=== PATIENT | male | born 1975 | race Caucasian/White ===

== ENCOUNTER 2017-03-04 11:22 | Emergency (ER) | payer OTHER ==
[2017-03-04 11:38] VITALS: RESP 18
[2017-03-04] MEDS ORDERED: SODIUM CHLORIDE 0.9% 1,000 ML IV STA (11:51)
--- NOTE | 2017-03-04 11:54 | ED ---
General Adult HPI - General Chief complaint: Abdominal Pain Stated complaint: poss Diverticulitis, has Hx Time Seen by Provider: 03/04/17 11:47 Source: patient, RN notes reviewed Mode of arrival: ambulatory Limitations: no limitations - History of Present Illness Initial comments: Patient 41-year-old male significant past medical history for diverticular disease, who presents emergency room today with chief complaint of lower abdominal pain that began yesterday. He states it's located in the middle of the abdomen. Denies any radiation. Currently rates an 12/02. Unable to describe exactly what the pain feels like when he states feels very similar to diverticulitis that is had in the past. Patient denies any other complaints or symptoms at this time. Patient denies any recent fever, chills, shortness of breath, chest pain, back pain, nausea or vomiting, numbness or tingling, dysuria or hematuria, constipation or diarrhea, headaches or visual changes, or any other complaints. - Related Data Previous Rx's Medication Instructions Recorded Ciprofloxacin HCl [Cipro] 500 mg PO Q12HR #20 day 03/04/17 Ondansetron Odt [Zofran ODT] 4 mg PO Q8HR PRN #20 tab 03/04/17 metroNIDAZOLE [Flagyl] 500 mg PO TID 7 Days tab 03/04/17 Allergies Allergy/AdvReac Type Severity Reaction Status Date / Time venom-honey bee Allergy Unknown Anaphylaxis Verified 03/04/17 12:47 [bee venom (honey bee)] sertraline HCl [From Zoloft] AdvReac Unknown "MAKES ME Verified 03/04/17 12:47 MEAN" PER PT Review of Systems ROS Statement: Those systems with pertinent positive or pertinent negative responses have been documented in the HPI. ROS Other: All systems not noted in ROS Statement are negative. Past Medical History Additional Past Medical History / Comment(s): Diverticulitis, kidney stones, ureter blockage, hx lt shoulder injury History of Any Multi-Drug Resistant Organisms: None Reported Past Surgical History: Appendectomy, Tonsillectomy Additional Past Surgical History / Comment(s): History of right nephrolithiasis with ureteral stricture status post multiple surgeries. Past Anesthesia/Blood Transfusion Reactions: No Reported Reaction Past Psychological History: Depression Smoking Status: Never smoker Past Alcohol Use History: None Reported Past Drug Use History: Marijuana General Exam - General Exam Comments Initial Comments: General: The patient is awake and alert, in no distress, and does not appear acutely ill. Eye: Pupils are equal, round and reactive to light, extra-ocular movements are intact. No nystagmus. There is normal conjunctiva bilaterally. No signs of icterus. Ears, nose, mouth and throat: There are moist mucous membranes and no oral lesions. Neck: The neck is supple, there is no tenderness or JVD. Cardiovascular: There is a regular rate and rhythm. No murmur, rub or gallop is appreciated. Respiratory: Lungs are clear to auscultation, respirations are non-labored, breath sounds are equal. No wheezes, stridor, rales, or rhonchi. Gastrointestinal: Normal appearance abdomen. Normal bowel sounds. Abdomen soft on palpation. Patient does have tenderness to the middle of the lower abdomen. No rebound tenderness. No guarding. No CVA tenderness. Musculoskeletal: Normal ROM, no tenderness. Strength 5/5. Sensation intact. Pulses equal bilaterally 2+. Neurological: A&O x 3. CN II-XII intact, There are no obvious motor or sensory deficits. Coordination appears grossly intact. Speech is normal. Skin: Skin is warm and dry and no rashes or lesions are noted. Psychiatric: Cooperative, appropriate mood & affect, normal judgment. Limitations: no limitations Course Vital Signs 03/04/17 03/04/17 03/04/17 11:36 12:09 12:49 Temperature 98.1 F 98.2 F Pulse Rate 88 77 76 Respiratory 18 18 18 Rate Blood Pressure 180/100 160/94 150/94 O2 Sat by Pulse 98 96 99 Oximetry Medical Decision Making - Medical Decision Making Patient reexamined at this time shows no signs of distress is resting comfortably in the stretcher. He does not want any pain medication. Patient does admit to a history of diverticulitis states this feels very much the same. He is on heparin any diarrhea as of yet received feel like it is about to start. Patient's x-ray of the abdomen is unremarkable for any acute abnormality. Patient's labs been reviewed and elevated white count. No fever here in the emergency room. Case was discussed in detail with attending physician Dr. Alston. Patient will be given prescription for Pili Mcdowell to go home with. Patient return to emergency room if any symptoms increase worsen or for any other concerns. - Lab Data Result diagrams: 03/04/17 12:00 03/04/17 12:00 Lab Results 03/04/17 03/04/17 Range/Units 12:00 12:00 WBC 9.8 (3.8-10.6) k/uL RBC 5.02 (4.30-5.90) m/uL Hgb 15.9 (13.0-17.5) gm/dL Hct 44.4 (39.0-53.0) % MCV 88.5 (80.0-100.0) fL MCH 31.7 (25.0-35.0) pg MCHC 35.8 (31.0-37.0) g/dL RDW 13.7 (11.5-15.5) % Plt Count 212 (150-450) k/uL Neutrophils % 69 % Lymphocytes % 22 % Monocytes % 5 % Eosinophils % 2 % Basophils % 0 % Neutrophils # 6.8 (1.3-7.7) k/uL Lymphocytes # 2.2 (1.0-4.8) k/uL Monocytes # 0.5 (0-1.0) k/uL Eosinophils # 0.2 (0-0.7) k/uL Basophils # 0.0 (0-0.2) k/uL Sodium 140 (137-145) mmol/L Potassium 4.0 (3.5-5.1) mmol/L Chloride 107 (98-107) mmol/L Carbon Dioxide 24 (22-30) mmol/L Anion Gap 9 mmol/L BUN 10 (9-20) mg/dL Creatinine 0.91 (0.66-1.25) mg/dL Est GFR (MDRD) Af Amer >60 (>60 ml/min/1.73 sqM) Est GFR (MDRD) Non-Af >60 (>60 ml/min/1.73 sqM) Glucose 96 (74-99) mg/dL Calcium 9.5 (8.4-10.2) mg/dL Total Bilirubin 0.6 (0.2-1.3) mg/dL AST 22 (17-59) U/L ALT 45 (21-72) U/L Alkaline Phosphatase 71 (38-126) U/L Total Protein 7.5 (6.3-8.2) g/dL Albumin 4.4 (3.5-5.0) g/dL Amylase 30 (30-110) U/L Lipase 141 (23-300) U/L Disposition Clinical Impression: Abdominal pain Disposition: HOME SELF-CARE Condition: Good Instructions: Abdominal Pain (ED) Additional Instructions: Please use medication as discussed. Please follow-up with family doctor in the next 2 days of symptoms have not improved. Please return to emergency room if the symptoms increase or worsen or for any other concerns. Prescriptions: Ciprofloxacin HCl [Cipro] 500 mg PO Q12HR #20 day metroNIDAZOLE [Flagyl] 500 mg PO TID 7 Days tab Ondansetron Odt [Zofran ODT] 4 mg PO Q8HR PRN #20 tab PRN Reason: Nausea Referrals: Daquan Arango DO [Primary Care Provider] - 1-2 days Time of Disposition: 13:05
[2017-03-04 12:10] VITALS: TEMP 98.2
[2017-03-04 12:14] LABS: Basophils % (A) 0 %; CH 32.7; CHCM 37.2; Eosinophils # (A) 0.2 k/uL (0-0.7); Eosinophils % (A) 2 %; HCT 44.4 % (39.0-53.0); HDW 3.01; HGB 15.9 gm/dL (13.0-17.5); Luc # (Auto) 0.13; Luc % (Auto) 1; Lymphocytes # (A) 2.2 k/uL (1.0-4.8); Lymphocytes % (A) 22 %; MCH 31.7 pg (25.0-35.0); MCHC 35.8 g/dL (31.0-37.0); MCV 88.5 fL (80.0-100.0); Mean Platelet Volume 6.8; Monocytes # (A) 0.5 k/uL (0-1.0); Monocytes % (A) 5 %; Neutrophils # (A) 6.8 k/uL (1.3-7.7); Neutrophils % (A) 69 %; RBC 5.02 m/uL (4.30-5.90); RDW 13.7 % (11.5-15.5); WBC 9.8 k/uL (3.8-10.6); WBC (Perox) 9.22
[2017-03-04 12:20] LABS: ALT 45 U/L (21-72); AST 22 U/L (17-59); Alkaline Phosphatase 71 U/L (38-126); Amylase 30 U/L (30-110); Anion Gap 9 mmol/L; Blood Urea Nitrogen 10 mg/dL (9-20); Calcium 9.5 mg/dL (8.4-10.2); Carbon Dioxide 24 mmol/L (22-30); Chloride 107 mmol/L (98-107); Glucose 96 mg/dL (74-99); Non-African American GFR(MDRD) >60 (>60 ml/min/1.73 sqM); Sodium 140 mmol/L (137-145); Total Bilirubin 0.6 mg/dL (0.2-1.3); Total Protein 7.5 g/dL (6.3-8.2)
[2017-03-04 12:51] VITALS: BP 150/94; PULSE 76
[2017-03-04] MEDS ORDERED: ONDANSETRON 4 MG/2 ML VIAL IVP STA (12:53)
--- NOTE | 2017-03-04 13:05 | XR ---
Abdomen HISTORY: Pain Frontal view of the abdomen on 2 images Lung bases are clear. There is no bowel obstruction or pneumoperitoneum. Double-J stent has been johnny esteban in the interval. No pathologic calcification evident. Bone mineralization is normal. IMPRESSION: No significant abnormalities evident.
== END 2017-03-04 13:21 | disposition home or self-care (01) ==
LOC: EC 11:22
DX: R10.30 Lower abdominal pain, unspecified (principal); Z88.8 Allergy status to other drugs, medicaments and biological substances; Z91.030 Bee allergy status; Z98.890 Other specified postprocedural states; Z53.29 Procedure and treatment not carried out because of patient's decision for other reasons
CPT/HCPCS: 36415; 74000; 80053; 82150; 83690; 85025; 96360; 99284

== ENCOUNTER 2017-03-09 15:28 | Emergency (ER) | payer OTHER ==
[2017-03-09] MEDS ORDERED: KETOROLAC 30 MG/ML 1 ML VIAL IVP STA (15:54)
--- NOTE | 2017-03-09 15:59 | ED ---
General Adult HPI - General Chief complaint: Skin/Abscess/Foreign Body Stated complaint: Rt Foot Pain Time Seen by Provider: 03/09/17 15:46 Source: patient, RN notes reviewed Mode of arrival: wheelchair Limitations: no limitations - History of Present Illness Initial comments: Patient is a pleasant 41-year-old male presenting to the emergency Department with right ankle pain. Onset was 3 or 4 days ago. Patient has noticed redness. Discomfort is moderate at rest and severe with movement. Discomfort also hurts with touching. No fevers. Patient does have a history of gout of his left ankle twice previously however he is not quite clear that that is exactly what is going on. Patient was seen at the clinic and was advised to come to the emergency department. Patient did have diverticulitis one week ago and was started on Cipro and Flagyl for this. Patient is still on these medications. No abdominal problems at this time. - Related Data Home Medications Medication Instructions Recorded Confirmed Acetaminophen-Codeine 300-30mg 1 tab PO Q8H PRN 03/09/17 03/09/17 [Tylenol #3] Previous Rx's Medication Instructions Recorded Ciprofloxacin HCl [Cipro] 500 mg PO Q12HR #20 day 03/04/17 Ondansetron Odt [Zofran ODT] 4 mg PO Q8HR PRN #20 tab 03/04/17 metroNIDAZOLE [Flagyl] 500 mg PO TID 7 Days tab 03/04/17 Colchicine 0.6 mg PO DAILY PRN #9 capsule 03/09/17 Allergies Allergy/AdvReac Type Severity Reaction Status Date / Time venom-honey bee Allergy Unknown Anaphylaxis Verified 03/09/17 15:49 [bee venom (honey bee)] sertraline HCl [From Zoloft] AdvReac Unknown "MAKES ME Verified 03/09/17 15:49 MEAN" PER PT Review of Systems ROS Statement: Those systems with pertinent positive or pertinent negative responses have been documented in the HPI. ROS Other: All systems not noted in ROS Statement are negative. Constitutional: Denies: fever, chills Eyes: Denies: eye pain ENT: Denies: ear pain Respiratory: Denies: cough Cardiovascular: Denies: chest pain Endocrine: Denies: fatigue Gastrointestinal: Denies: abdominal pain Genitourinary: Denies: dysuria Musculoskeletal: Reports: joint swelling, arthralgia. Denies: back pain Skin: Reports: rash Neurological: Denies: weakness Past Medical History Additional Past Medical History / Comment(s): Diverticulitis, kidney stones, ureter blockage, hx lt shoulder injury History of Any Multi-Drug Resistant Organisms: None Reported Past Surgical History: Appendectomy, Tonsillectomy Additional Past Surgical History / Comment(s): History of right nephrolithiasis with ureteral stricture status post multiple surgeries. Past Anesthesia/Blood Transfusion Reactions: No Reported Reaction Past Psychological History: Depression Smoking Status: Never smoker Past Alcohol Use History: None Reported Past Drug Use History: None Reported General Exam Limitations: no limitations General appearance: alert, in no apparent distress Head exam: Present: atraumatic Eye exam: Present: normal appearance, PERRL ENT exam: Present: normal oropharynx Neck exam: Present: normal inspection Respiratory exam: Present: normal lung sounds bilaterally Cardiovascular Exam: Present: regular rate, normal rhythm Expanded Peripheral pulses: 2+: Dorsalis Pedis (R) GI/Abdominal exam: Present: soft. Absent: tenderness Extremities exam: Present: joint swelling (Right ankle with moderate diffuse swelling. There is erythema on the medial portion with some erythema extending to the dorsal midfoot. Moderate to severe tenderness to palpation. Severe discomfort with motion. Range of motion is limited by discomfort.) Neurological exam: Present: alert Psychiatric exam: Present: normal affect, normal mood Skin exam: Present: erythema (Right medial ankle extending to the dorsal midfoot.) Course Vital Signs 03/09/17 03/09/17 15:39 16:59 Temperature 99.2 F Pulse Rate 105 H 70 Respiratory 20 18 Rate Blood Pressure 162/104 149/83 O2 Sat by Pulse 98 98 Oximetry Medical Decision Making - Medical Decision Making Patient reevaluated and states he is feeling much better. Patient states he is now able to move his ankle. Patient now believes his symptoms are more likely related to gout. Clinically as well as lab results to point towards inflammatory process instead of infectious process. Case was also discussed with Dr. Shirley, who is in agreement with this and will follow-up with the patient tomorrow. Patient is updated on results and need for follow-up. - Lab Data Result diagrams: 03/09/17 16:05 03/09/17 16:05 Lab Results 03/09/17 03/09/17 Range/Units 16:05 16:05 WBC 10.1 (3.8-10.6) k/uL RBC 5.08 (4.30-5.90) m/uL Hgb 15.7 (13.0-17.5) gm/dL Hct 44.8 (39.0-53.0) % MCV 88.3 (80.0-100.0) fL MCH 31.0 (25.0-35.0) pg MCHC 35.1 (31.0-37.0) g/dL RDW 14.2 (11.5-15.5) % Plt Count 296 (150-450) k/uL Neutrophils % 70 % Lymphocytes % 19 % Monocytes % 7 % Eosinophils % 2 % Basophils % 0 % Neutrophils # 7.1 (1.3-7.7) k/uL Lymphocytes # 1.9 (1.0-4.8) k/uL Monocytes # 0.7 (0-1.0) k/uL Eosinophils # 0.2 (0-0.7) k/uL Basophils # 0.0 (0-0.2) k/uL ESR 32 H (0-15) mm/hr Sodium 139 (137-145) mmol/L Potassium 3.8 (3.5-5.1) mmol/L Chloride 101 (98-107) mmol/L Carbon Dioxide 25 (22-30) mmol/L Anion Gap 13 mmol/L BUN 14 (9-20) mg/dL Creatinine 1.00 (0.66-1.25) mg/dL Est GFR (MDRD) Af Amer >60 (>60 ml/min/1.73 sqM) Est GFR (MDRD) Non-Af >60 (>60 ml/min/1.73 sqM) Glucose 100 H (74-99) mg/dL Uric Acid 9.1 H (3.5-8.5) mg/dL Calcium 9.4 (8.4-10.2) mg/dL Total Bilirubin 0.6 (0.2-1.3) mg/dL AST 21 (17-59) U/L ALT 35 (21-72) U/L Alkaline Phosphatase 70 (38-126) U/L C-Reactive Protein 55.2 H (<10.0) mg/L Total Protein 7.4 (6.3-8.2) g/dL Albumin 4.4 (3.5-5.0) g/dL - Radiology Data Radiology results: image reviewed (X-ray of the right ankle suggests remote trauma and arthropathy. There is soft tissue edema.) Disposition Clinical Impression: Arthralgia Disposition: HOME SELF-CARE Condition: Stable Instructions: Gout (ED) Additional Instructions: Please follow-up with primary care physician tomorrow as well as orthopedics, number provided. Return for increased pain, swelling, fever, redness, worsening symptoms or other concerns. Prescriptions: Colchicine 0.6 mg PO DAILY PRN #9 capsule PRN Reason: Pain Referrals: Daquan Arango DO [Primary Care Provider] - 1-2 days Time of Disposition: 19:08
[2017-03-09 16:19] LABS: Basophils % (A) 0 %; CH 31.7; CHCM 36.1; Eosinophils # (A) 0.2 k/uL (0-0.7); Eosinophils % (A) 2 %; HCT 44.8 % (39.0-53.0); HDW 2.87; HGB 15.7 gm/dL (13.0-17.5); Luc # (Auto) 0.12; Luc % (Auto) 1; Lymphocytes # (A) 1.9 k/uL (1.0-4.8); Lymphocytes % (A) 19 %; MCHC 35.1 g/dL (31.0-37.0); MCV 88.3 fL (80.0-100.0); Mean Platelet Volume 7.2; Monocytes # (A) 0.7 k/uL (0-1.0); Monocytes % (A) 7 %; Neutrophils # (A) 7.1 k/uL (1.3-7.7); Neutrophils % (A) 70 %; RBC 5.08 m/uL (4.30-5.90); RDW 14.2 % (11.5-15.5); WBC 10.1 k/uL (3.8-10.6); WBC (Perox) 9.98
--- NOTE | 2017-03-09 16:32 | XR ---
EXAMINATION TYPE: XR ankle complete RT DATE OF EXAM: 03/09/2017 COMPARISON: NONE HISTORY: Pain and swelling FINDINGS: Three views of the ankle demonstrate the ankle mortise to be intact and symmetric. The joint spaces are preserved. The osseous structures are intact. There is a more well corticated density along the lateral malleolus with hypertrophic spurring. Findings suggest remote trauma. Calcaneal spurs noted. Soft tissue edema suspected with a greater involvement laterally. IMPRESSION: 1. Findings suggest remote trauma and arthropathy along the medial malleolus. There is soft tissue ed rojelio.
[2017-03-09 16:44] LABS: ALT 35 U/L (21-72); AST 21 U/L (17-59); Alkaline Phosphatase 70 U/L (38-126); Anion Gap 13 mmol/L; Blood Urea Nitrogen 14 mg/dL (9-20); C Reactive Protein 55.2 mg/L (<10.0); Calcium 9.4 mg/dL (8.4-10.2); Carbon Dioxide 25 mmol/L (22-30); Chloride 101 mmol/L (98-107); Glucose 100 mg/dL (74-99); Non-African American GFR(MDRD) >60 (>60 ml/min/1.73 sqM); Potassium 3.8 mmol/L (3.5-5.1); Sodium 139 mmol/L (137-145); Total Bilirubin 0.6 mg/dL (0.2-1.3); Total Protein 7.4 g/dL (6.3-8.2); Uric Acid 9.1 mg/dL (3.5-8.5)
[2017-03-09 17:00] VITALS: RESP 18
[2017-03-09] MEDS ORDERED: HYDROmorphone 1 MG/ML 1 ML SYRINGE IVP STA (17:05)
[2017-03-09 17:08] LABS: Erythrocyte Sedimentation Rate 32 mm/hr (0-15)
[2017-03-09 19:23] VITALS: BP 142/88; PULSE 85; TEMP 97.6
== END 2017-03-09 19:23 | disposition home or self-care (01) ==
LOC: EC 15:28
DX: M25.571 Pain in right ankle and joints of right foot (principal); Z91.030 Bee allergy status; Z88.8 Allergy status to other drugs, medicaments and biological substances; Z87.39 Personal history of other diseases of the musculoskeletal system and connective tissue
CPT/HCPCS: 99284; 96374; 96375; 36415; 80053; 85652; 84550; 85025; 86140; 87040; 73610; J1885; J1170

== ENCOUNTER 2018-04-01 13:57 | Emergency (ER) | payer OTHER ==
[2018-04-01 14:26] VITALS: RESP 18
[2018-04-01] MEDS ORDERED: SODIUM CHLORIDE 0.9% 1,000 ML IV STA (14:53)
[2018-04-01] MEDS ORDERED: KETOROLAC 30 MG/ML 1 ML VIAL IVP STA (14:53)
[2018-04-01] MEDS ORDERED: MORPHINE SULFATE 4 MG/ML SYRINGE IV STA (14:53)
[2018-04-01] MEDS ORDERED: ONDANSETRON 4 MG/2 ML VIAL IVP STA (14:53)
[2018-04-01 15:24] LABS: Basophils % (A) 0 %; Eosinophils # (A) 0.2 k/uL (0-0.7); Eosinophils % (A) 2 %; HCT 46.8 % (39.0-53.0); HGB 16.2 gm/dL (13.0-17.5); Lymphocytes # (A) 2.1 k/uL (1.0-4.8); Lymphocytes % (A) 16 %; MCH 30.2 pg (25.0-35.0); MCHC 34.6 g/dL (31.0-37.0); MCV 87.2 fL (80.0-100.0); Mean Platelet Volume 6.7; Monocytes # (A) 0.6 k/uL (0-1.0); Monocytes % (A) 5 %; Neutrophils # (A) 9.9 k/uL (1.3-7.7); Neutrophils % (A) 76 %; Platelet Count 202 k/uL (150-450); RBC 5.37 m/uL (4.30-5.90); RDW 13.6 % (11.5-15.5)
--- NOTE | 2018-04-01 15:38 | ED ---
General Adult HPI - General Chief complaint: Abdominal Pain Stated complaint: Kidney stone Time Seen by Provider: 04/01/18 14:38 Source: patient, RN notes reviewed Mode of arrival: ambulatory Limitations: no limitations - History of Present Illness Initial comments: Patient is a 42-year-old male with significant past medical history for kidney stones, presented to the emergency room today with a chief complaint of right- sided flank pain that started this morning proxy 9 AM. Patient does admit to sharp type pain located in the right flank. Patient does admit to feeling nauseated. Patient states his symptoms are consistent with kidney stones that is had in the past. Denies any other complaints or symptoms at this time. Patient denies any recent fever, chills, shortness of breath, chest pain, numbness or tingling, dysuria or hematuria, constipation or diarrhea, headaches or visual changes, or any other complaints. - Related Data Home Medications Medication Instructions Recorded Confirmed Acetaminophen-Codeine 300-30mg 1 tab PO Q8H PRN 03/09/17 03/09/17 [Tylenol #3] Previous Rx's Medication Instructions Recorded Ciprofloxacin HCl [Cipro] 500 mg PO Q12HR #20 day 03/04/17 Ondansetron Odt [Zofran ODT] 4 mg PO Q8HR PRN #20 tab 03/04/17 metroNIDAZOLE [Flagyl] 500 mg PO TID 7 Days tab 03/04/17 Colchicine 0.6 mg PO DAILY PRN #9 capsule 03/09/17 Allergies Allergy/AdvReac Type Severity Reaction Status Date / Time venom-honey bee Allergy Unknown Anaphylaxis Verified 04/01/18 14:22 [bee venom (honey bee)] sertraline HCl [From Zoloft] AdvReac Unknown "MAKES ME Verified 04/01/18 14:22 MEAN" PER PT Review of Systems ROS Statement: Those systems with pertinent positive or pertinent negative responses have been documented in the HPI. ROS Other: All systems not noted in ROS Statement are negative. Past Medical History Additional Past Medical History / Comment(s): Diverticulitis, kidney stones, ureter blockage, hx lt shoulder injury History of Any Multi-Drug Resistant Organisms: None Reported Past Surgical History: Appendectomy, Tonsillectomy Additional Past Surgical History / Comment(s): History of right nephrolithiasis with ureteral stricture status post multiple surgeries. Past Anesthesia/Blood Transfusion Reactions: No Reported Reaction Past Psychological History: Depression Smoking Status: Never smoker Past Alcohol Use History: None Reported Past Drug Use History: None Reported General Exam - General Exam Comments Initial Comments: General: The patient is awake and alert, in no distress, and does not appear acutely ill. Neck: The neck is supple, there is no tenderness or JVD. Cardiovascular: There is a regular rate and rhythm. No murmur, rub or gallop is appreciated. Respiratory: Lungs are clear to auscultation, respirations are non-labored, breath sounds are equal. No wheezes, stridor, rales, or rhonchi. Gastrointestinal: Patient does have mild tenderness right lower quadrant. No rebound, guarding or CVA tenderness. Musculoskeletal: Normal ROM, no tenderness. Neurological: A&O x 3. CN II-XII intact, There are no obvious motor or sensory deficits. Coordination appears grossly intact. Speech is normal. Skin: Skin is warm and dry and no rashes or lesions are noted. Psychiatric: Cooperative, appropriate mood & affect, normal judgment. Limitations: no limitations Course Vital Signs 04/01/18 14:22 Temperature 97.8 F Pulse Rate 88 Respiratory 18 Rate Blood Pressure 143/98 O2 Sat by Pulse 98 Oximetry Medical Decision Making - Medical Decision Making Patient reexamined at this time shows no signs of distress. Patient states that he passed kidney stone here in the emergency room. Patient's labs been reviewed did show 13,000 white count he did have an episode of vomiting. Patient's x-rays unremarkable. Remaining labs reviewed. Patient will be discharged home. He is advised follow-up as needed return if any symptoms increase or worsen. - Lab Data Result diagrams: 04/01/18 15:00 04/01/18 15:00 Lab Results 04/01/18 04/01/18 04/01/18 Range/Units 15:00 15:00 16:35 WBC 13.0 H (3.8-10.6) k/uL RBC 5.37 (4.30-5.90) m/uL Hgb 16.2 (13.0-17.5) gm/dL Hct 46.8 (39.0-53.0) % MCV 87.2 (80.0-100.0) fL MCH 30.2 (25.0-35.0) pg MCHC 34.6 (31.0-37.0) g/dL RDW 13.6 (11.5-15.5) % Plt Count 202 (150-450) k/uL Neutrophils % 76 % Lymphocytes % 16 % Monocytes % 5 % Eosinophils % 2 % Basophils % 0 % Neutrophils # 9.9 H (1.3-7.7) k/uL Lymphocytes # 2.1 (1.0-4.8) k/uL Monocytes # 0.6 (0-1.0) k/uL Eosinophils # 0.2 (0-0.7) k/uL Basophils # 0.0 (0-0.2) k/uL Sodium 141 (137-145) mmol/L Potassium 4.1 (3.5-5.1) mmol/L Chloride 105 (98-107) mmol/L Carbon Dioxide 26 (22-30) mmol/L Anion Gap 10 mmol/L BUN 14 (9-20) mg/dL Creatinine 0.98 (0.66-1.25) mg/dL Est GFR (CKD-EPI)AfAm >90 (>60 ml/min/1.73 sqM) Est GFR (CKD-EPI)NonAf >90 (>60 ml/min/1.73 sqM) Glucose 96 (74-99) mg/dL Calcium 9.2 (8.4-10.2) mg/dL Total Bilirubin 0.7 (0.2-1.3) mg/dL AST 25 (17-59) U/L ALT 40 (21-72) U/L Alkaline Phosphatase 70 (38-126) U/L Total Protein 7.5 (6.3-8.2) g/dL Albumin 4.5 (3.5-5.0) g/dL Urine Color Yellow Urine Appearance Clear (Clear) Urine pH 5.5 (5.0-8.0) Ur Specific [place] 1.015 (1.001-1.035) Urine Protein Negative (Negative) Urine Glucose (UA) Negative (Negative) Urine Ketones Negative (Negative) Urine Blood Negative (Negative) Urine Nitrite Negative (Negative) Urine Bilirubin Negative (Negative) Urine Urobilinogen <2.0 (<2.0) mg/dL Ur Leukocyte Esterase Negative (Negative) Disposition Clinical Impression: Kidney stone Disposition: HOME SELF-CARE Condition: Good Instructions: Kidney Stones (ED) Additional Instructions: Please return to emergency room if the symptoms increase or worsen or for any other concerns. Is patient prescribed a controlled substance at d/c from ED?: No Referrals: None,Stated [REFERRING] - 1-2 days Time of Disposition: 17:12
[2018-04-01 15:39] LABS: ALT 40 U/L (21-72); AST 25 U/L (17-59); Albumin 4.5 g/dL (3.5-5.0); Alkaline Phosphatase 70 U/L (38-126); Anion Gap 10 mmol/L; Blood Urea Nitrogen 14 mg/dL (9-20); Calcium 9.2 mg/dL (8.4-10.2); Carbon Dioxide 26 mmol/L (22-30); Chloride 105 mmol/L (98-107); Glucose 96 mg/dL (74-99); Potassium 4.1 mmol/L (3.5-5.1); Sodium 141 mmol/L (137-145); Total Bilirubin 0.7 mg/dL (0.2-1.3); Total Protein 7.5 g/dL (6.3-8.2)
--- NOTE | 2018-04-01 16:43 | XR ---
Abdomen HISTORY: Right-sided pain, kidney stones Frontal view of the abdomen on 3 images Correlation prior exam 03/04/2017, CT 12/10/2015 There is no evident bowel obstruction or pneumoperitoneum. Bowel gas may obscure underlying detail. B one mineralization is normal. IMPRESSION: Nonobstructive bowel gas pattern.
[2018-04-01 17:00] LABS: Appearance,Urine Clear (Clear); Bilirubin,Urine Negative (Negative); Blood,Urine Negative (Negative); Color,Urine Yellow; Glucose,Urine (UA) Negative (Negative); Ketones,Urine Negative (Negative); Leukocyte Esterase,Urine Negative (Negative); Nitrite,Urine Negative (Negative); PH, Urine 5.5 (5.0-8.0); Protein,Urine Negative (Negative); Specific Gravity,Urine 1.015 (1.001-1.035); Urobilinogen,Urine <2.0 mg/dL (<2.0)
[2018-04-01 17:20] VITALS: BP 130/84; PULSE 78; TEMP 98
== END 2018-04-01 17:21 | disposition home or self-care (01) ==
LOC: EC 13:57
DX: N20.0 Calculus of kidney (principal); Z88.8 Allergy status to other drugs, medicaments and biological substances; Z91.030 Bee allergy status
CPT/HCPCS: 36415; 80053; 85025; 81003; 74018; 99284; 96374; 96375 ×2; 96361; J2270; J2405; J1885

== ENCOUNTER 2018-05-01 11:52 | Emergency (ER) | payer OTHER ==
[2018-05-01 12:39] VITALS: TEMP 98.2
[2018-05-01] MEDS ORDERED: MORPHINE SULFATE 4 MG/ML SYRINGE IV STA (14:15)
[2018-05-01] MEDS ORDERED: SODIUM CHLORIDE 0.9% 1,000 ML IV STA (14:15)
[2018-05-01 14:28] LABS: Basophils # (A) 0.1 k/uL (0-0.2); Basophils % (A) 1 %; Eosinophils # (A) 0.2 k/uL (0-0.7); Eosinophils % (A) 2 %; HCT 48.9 % (39.0-53.0); HGB 17.7 gm/dL (13.0-17.5); Lymphocytes # (A) 2.7 k/uL (1.0-4.8); Lymphocytes % (A) 27 %; MCH 31.4 pg (25.0-35.0); MCHC 36.2 g/dL (31.0-37.0); MCV 86.7 fL (80.0-100.0); Mean Platelet Volume 6.9; Monocytes # (A) 0.5 k/uL (0-1.0); Monocytes % (A) 5 %; Neutrophils # (A) 6.4 k/uL (1.3-7.7); Neutrophils % (A) 65 %; Platelet Count 218 k/uL (150-450); RBC 5.63 m/uL (4.30-5.90); RDW 13.6 % (11.5-15.5); WBC 9.9 k/uL (3.8-10.6)
[2018-05-01] MEDS ORDERED: ONDANSETRON 4 MG/2 ML VIAL IVP STA (14:29)
[2018-05-01 14:33] LABS: Albumin 5.2 g/dL (3.5-5.0); Calcium 10.1 mg/dL (8.4-10.2); Potassium 4.3 mmol/L (3.5-5.1); Total Bilirubin 0.9 mg/dL (0.2-1.3); Total Protein 8.7 g/dL (6.3-8.2)
[2018-05-01 14:38] LABS: Appearance,Urine Clear (Clear); Bilirubin,Urine Negative (Negative); Blood,Urine Negative (Negative); Color,Urine Yellow; Glucose,Urine (UA) Negative (Negative); Ketones,Urine Negative (Negative); Leukocyte Esterase,Urine Negative (Negative); Mucus,Urine Rare /hpf; Nitrite,Urine Negative (Negative); Protein,Urine 1+ (Negative); Specific Gravity,Urine 1.016 (1.001-1.035); Urobilinogen,Urine <2.0 mg/dL (<2.0); WBC,Urine 1 /hpf (0-5)
[2018-05-01] MEDS ORDERED: KETOROLAC 30 MG/ML 1 ML VIAL IVP STA (14:54)
--- NOTE | 2018-05-01 15:00 | CT ---
EXAMINATION TYPE: CT abdomen pelvis wo con DATE OF EXAM: 05/01/2018 COMPARISON: 12/10/2015 HISTORY: Generalized pain CT DLP: 1070 mGycm Automated exposure control for dose reduction was used. TECHNIQUE: Helical acquisition of images was performed from the lung bases through the pelvis. FINDINGS: LUNG BASES: No significant abnormality is appreciated. LIVER/GB: Hepatic parenchyma is diffusely hypoattenuated in comparison to that of the spleen, most co mmonly seen in hepatic steatosis. This finding limits evaluation for hepatic masses. No gross evidenc e of hepatic mass is seen. No intrahepatic biliary ductal dilatation. The liver is enlarged. No radames lithiasis is seen. PANCREAS: No significant abnormality is seen. SPLEEN: Spleen is enlarged measuring 15.5 cm in longitudinal dimension. ADRENALS: No significant abnormality is seen. KIDNEYS: There is moderate right-sided hydroureteronephrosis with a punctate hyperdense 1 to 2 mm jovana culus at the distal right ureter in caliber change of the ureter just distal to this. Additional prob able punctate minimally calcified right nonobstructing renal calculi are seen upper pole as well as w ithin the lower pole. No left-sided renal calculi or hydronephrosis are seen. FREE AIR: No free air is visualized RETROPERITONEAL ADENOPATHY: Shotty lymph nodes are seen in the periaortic retroperitoneal space. No adenopathy by size criteria URINARY BLADDER: Urinary bladder is decompressed and incompletely evaluated OSSEOUS STRUCTURES: Multilevel degenerative changes are seen within the lower thoracic and upper lum bar spine. Moderate bilateral femoral acetabular arthropathy is also noted. BOWEL: There are scattered colonic diverticula without pericolonic fat stranding. No dilated large o r small bowel are seen. IMPRESSION: 1. OBSTRUCTIVE UROPATHY FROM A PUNCTATE 1 TO 2 MM RIGHT DISTAL URETERAL CALCULUS RESULTING IN MODERAT E RIGHT HYDROURETERONEPHROSIS. ADDITIONAL NONOBSTRUCTING RIGHT RENAL CALCULI ARE SEEN. 2. 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 3. PANCOLONIC DIVERTICULOSIS.
[2018-05-01] MEDS ORDERED: SODIUM CHLORIDE 0.9% 500 ML 500 ML IV STA (15:41)
--- NOTE | 2018-05-01 15:41 | ED ---
General Adult HPI - General Chief complaint: Abdominal Pain Stated complaint: Kidney Stone Source: patient, RN notes reviewed, old records reviewed Mode of arrival: ambulatory Limitations: no limitations - History of Present Illness Initial comments: 43-year-old male patient past medical history of recurrent renal calculi presents to ED with right flank pain. Patient states that this feels exactly the same as kidney stones he has had in the past. Patient ports that he last had a kidney stone approximately 6 weeks ago. Patient follows up for urology regularly - Dr San, reports he has had multiple procedures to remove large stones - last in november 2016. Patient denies any other complaints. Patient denies any ripping tearing sensation abdomen. Patient states that pain is in the right flank, not in abdomen. Patient denies chest pain shortness of breath. Patient denies headache, change in vision, trauma, syncope. Systemic: Pt denies fatigue, fever/chills, rash. Pt denies weakness, night sweats, weight loss. Neuro: Pt denies headache, visual disturbances, syncope or pre-syncope. HEENT: Pt denies ocular discharge or irritation, otalgia, rhinorrhea, pharyngitis or notable lymphadenopathy. Cardiopulmonary: Pt denies chest pain, SOB, heart palpitations, dyspnea on exertion. Abdominal/GI: Pt denies abdominal pain. Pt complains of R flank pain. : Pt denies dysuria, burning w/ urination, frequency/urgency. Denies new onset urinary or bowel incontinence. MSK: Pt denies myalgia, loss of strength or function in extremities. Neuro: Pt denies new onset weakness, paresthesias. - Related Data Home Medications Medication Instructions Recorded Confirmed Acetaminophen-Codeine 300-30mg 1 tab PO Q8H PRN 03/09/17 05/01/18 [Tylenol #3] Previous Rx's Medication Instructions Recorded Ketorolac [Toradol] 10 mg PO Q6HR 5 Days #20 tab 05/01/18 Tamsulosin [Flomax] 0.4 mg PO DAILY #10 cap 05/01/18 Allergies Allergy/AdvReac Type Severity Reaction Status Date / Time venom-honey bee Allergy Unknown Anaphylaxis Verified 05/01/18 14:00 [bee venom (honey bee)] sertraline HCl [From Zoloft] AdvReac Unknown "MAKES ME Verified 05/01/18 14:00 MEAN" PER PT Review of Systems ROS Statement: Those systems with pertinent positive or pertinent negative responses have been documented in the HPI. ROS Other: All systems not noted in ROS Statement are negative. Past Medical History Additional Past Medical History / Comment(s): Diverticulitis, kidney stones, ureter blockage, hx lt shoulder injury History of Any Multi-Drug Resistant Organisms: None Reported Past Surgical History: Appendectomy, Tonsillectomy Additional Past Surgical History / Comment(s): History of right nephrolithiasis with ureteral stricture status post multiple surgeries. Past Anesthesia/Blood Transfusion Reactions: No Reported Reaction Past Psychological History: Depression Smoking Status: Never smoker Past Alcohol Use History: None Reported Past Drug Use History: None Reported General Exam - General Exam Comments Initial Comments: Constitutional: NAD, AOX3, Pt has pleasant affect. HEENT: NC/AT, trachea midline, neck supple, no lymphadenopathy. Posterior pharynx non erythematous, without exudates. External ears appear normal, without discharge. Mucous membranes moist. Eyes PERRLA, EOM intact. There is no scleral icterus. No pallor noted. Cardiopulmonary: RRR, no murmurs, rubs or gallops, no JVD noted. Lungs CTAB in anterior and posterior thorne. No peripheral edema. Abdominal exam: Abdomen soft and non-distended. Abdomen non-tender to palpation in all 4 quadrants. No guarding no rigidity. Bowel sounds active in LLQ. No hepatosplenomegaly. No ecchymosis. R flank mildly tender to palpation. CVA tenderness negative. Neuro: CN II-XII intact. No nuchal rigidity. No facial droop, no focal deficit. Repeat nuro exam wnl. MSK: No posterior calf tenderness bilaterally, homans sign negative bilaterally. Pt has equal distal pulses in upper and lower extremities. Posterior tibialis and radial pulse +2 bilaterally. Sensation intact in upper and lower extremities. Full active ROM in upper and lower extremities, 5/5 stregnth. Limitations: no limitations Course Vital Signs 05/01/18 05/01/18 05/01/18 12:38 15:02 15:35 Temperature 98.2 F Pulse Rate 85 83 65 Respiratory 18 18 16 Rate Blood Pressure 226/118 201/104 164/81 O2 Sat by Pulse 98 99 95 Oximetry 05/01/18 17:14 Temperature Pulse Rate 71 Respiratory 14 Rate Blood Pressure 131/77 O2 Sat by Pulse 98 Oximetry Medical Decision Making - Medical Decision Making 43-year-old male patient past medical history of recurrent renal calculi presents to ED with right flank pain. Patient states that this feels exactly the same as kidney stones he has had in the past. Patient reports that he last had a kidney stone approximately 6 weeks ago. Patient follows up for urology regularly, reports he has had multiple procedures to remove large stones - last in november 2016. Patient denies any other complaints. Patient initially hypertensive 226/118 in triage, pt stated he was in large amount of pain in R flank. Pt blood pressure decreased with analgesic to 131/77. Physical exm revealed normal neurological exam, R flank mildly tender to palpation. Laboratory investigations revealed noncompressive CBC, CMP. Coagulation studies within normal limits. Troponin negative. Lipase mildly elevated to 336. Amylase wnl. Lactic acid wnl. UA nonimpressive. Noncontrast CT displayed obstructing 1-2mm distal right renal calculi resulting in moderate right hydroureteronephrosis. Additional nonobstructing right renal calculi are seen. CT also displayed hepatic steatosis and pancolonic diverticulosis. Pt improved with zofran, IV fluids, morphine and toradol. Pt not driving home. Pt to be DC with flomax, PO analgesia. Pt to f/u with his urologist Dr. San tomorrow. Pt to f/u with PCP in 1-2 days. Pt to return to ED if condition worsens in anyway or if new s/sx develop. Case discussed in depth with Dr. Ware. - Lab Data Result diagrams: 05/01/18 14:00 05/01/18 14:00 Lab Results 05/01/18 05/01/18 05/01/18 Range/Units 14:00 14:00 14:00 WBC 9.9 (3.8-10.6) k/uL RBC 5.63 (4.30-5.90) m/uL Hgb 17.7 H (13.0-17.5) gm/dL Hct 48.9 (39.0-53.0) % MCV 86.7 (80.0-100.0) fL MCH 31.4 (25.0-35.0) pg MCHC 36.2 (31.0-37.0) g/dL RDW 13.6 (11.5-15.5) % Plt Count 218 (150-450) k/uL Neutrophils % 65 % Lymphocytes % 27 % Monocytes % 5 % Eosinophils % 2 % Basophils % 1 % Neutrophils # 6.4 (1.3-7.7) k/uL Lymphocytes # 2.7 (1.0-4.8) k/uL Monocytes # 0.5 (0-1.0) k/uL Eosinophils # 0.2 (0-0.7) k/uL Basophils # 0.1 (0-0.2) k/uL PT (9.0-12.0) sec INR (<1.2) APTT (22.0-30.0) sec Sodium 142 (137-145) mmol/L Potassium 4.3 (3.5-5.1) mmol/L Chloride 103 (98-107) mmol/L Carbon Dioxide 29 (22-30) mmol/L Anion Gap 10 mmol/L BUN 14 (9-20) mg/dL Creatinine 1.21 (0.66-1.25) mg/dL Est GFR (CKD-EPI)AfAm 86 (>60 ml/min/1.73 sqM) Est GFR (CKD-EPI)NonAf 74 (>60 ml/min/1.73 sqM) Glucose 97 (74-99) mg/dL Plasma Lactic Acid [place] (0.7-2.0) mmol/L Calcium 10.1 (8.4-10.2) mg/dL Total Bilirubin 0.9 (0.2-1.3) mg/dL AST 30 (17-59) U/L ALT 42 (21-72) U/L Alkaline Phosphatase 76 (38-126) U/L Troponin I (0.000-0.034) ng/mL Total Protein 8.7 H (6.3-8.2) g/dL Albumin 5.2 H (3.5-5.0) g/dL Amylase 74 (30-110) U/L Lipase 336 H (23-300) U/L Urine Color Yellow Urine Appearance Clear (Clear) Urine pH 6.0 (5.0-8.0) Ur Specific [place] 1.016 (1.001-1.035) Urine Protein 1+ H (Negative) Urine Glucose (UA) Negative (Negative) Urine Ketones Negative (Negative) Urine Blood Negative (Negative) Urine Nitrite Negative (Negative) Urine Bilirubin Negative (Negative) Urine Urobilinogen <2.0 (<2.0) mg/dL Ur Leukocyte Esterase Negative (Negative) Urine WBC 1 (0-5) /hpf Urine Mucus Rare H (None) /hpf 05/01/18 05/01/18 05/01/18 Range/Units 14:00 14:00 14:25 WBC (3.8-10.6) k/uL RBC (4.30-5.90) m/uL Hgb (13.0-17.5) gm/dL Hct (39.0-53.0) % MCV (80.0-100.0) fL MCH (25.0-35.0) pg MCHC (31.0-37.0) g/dL RDW (11.5-15.5) % Plt Count (150-450) k/uL Neutrophils % % Lymphocytes % % Monocytes % % Eosinophils % % Basophils % % Neutrophils # (1.3-7.7) k/uL Lymphocytes # (1.0-4.8) k/uL Monocytes # (0-1.0) k/uL Eosinophils # (0-0.7) k/uL Basophils # (0-0.2) k/uL PT 10.9 (9.0-12.0) sec INR 1.0 (<1.2) APTT 25.2 (22.0-30.0) sec Sodium (137-145) mmol/L Potassium (3.5-5.1) mmol/L Chloride (98-107) mmol/L Carbon Dioxide (22-30) mmol/L Anion Gap mmol/L BUN (9-20) mg/dL Creatinine (0.66-1.25) mg/dL Est GFR (CKD-EPI)AfAm (>60 ml/min/1.73 sqM) Est GFR (CKD-EPI)NonAf (>60 ml/min/1.73 sqM) Glucose (74-99) mg/dL Plasma Lactic Acid [place] 1.3 (0.7-2.0) mmol/L Calcium (8.4-10.2) mg/dL Total Bilirubin (0.2-1.3) mg/dL AST (17-59) U/L ALT (21-72) U/L Alkaline Phosphatase (38-126) U/L Troponin I <0.012 (0.000-0.034) ng/mL Total Protein (6.3-8.2) g/dL Albumin (3.5-5.0) g/dL Amylase (30-110) U/L Lipase (23-300) U/L Urine Color Urine Appearance (Clear) Urine pH (5.0-8.0) Ur Specific [place] (1.001-1.035) Urine Protein (Negative) Urine Glucose (UA) (Negative) Urine Ketones (Negative) Urine Blood (Negative) Urine Nitrite (Negative) Urine Bilirubin (Negative) Urine Urobilinogen (<2.0) mg/dL Ur Leukocyte Esterase (Negative) Urine WBC (0-5) /hpf Urine Mucus (None) /hpf - EKG Data -: EKG Interpreted by Me (and dr ware) EKG Comments: Ventricular rate 63, parents at 154, QRS 96, QT/QTc 412/421. Normal sinus rhythm normal EKG. Disposition Clinical Impression: Renal calculus, right Disposition: HOME SELF-CARE Condition: Fair Instructions: Kidney Stones (ED) Additional Instructions: Patient to adhere to previously discussed treatment plan and will take medication(s) as directed. Patient to follow up with PCP in 1-2 days. Patient to return to ED if symptoms do not improve. Prescriptions: Ketorolac [Toradol] 10 mg PO Q6HR 5 Days #20 tab Tamsulosin [Flomax] 0.4 mg PO DAILY #10 cap Is patient prescribed a controlled substance at d/c from ED?: No Referrals: [facility],Clinic [Primary Care Provider] - 1-2 days Aaron San MD [STAFF PHYSICIAN] - 1-2 days Time of Disposition: 17:17
[2018-05-01] MEDS ORDERED: HYDROmorphone 0.5 MG/0.5 ML SYRINGE IVP STA (16:37)
[2018-05-01 16:40] LABS: Partial Thromboplastin Time 25.2 sec (22.0-30.0); Prothrombin Time 10.9 sec (9.0-12.0)
[2018-05-01] MEDS ORDERED: ACET/COD 300 MG/30 MG STARTER PACK 6 TAB BTL PO STA (17:15)
[2018-05-01 17:16] VITALS: BP 131/77; PULSE 71; RESP 14
== END 2018-05-01 17:25 | disposition home or self-care (01) ==
LOC: EC 11:52
DX: N13.2 Hydronephrosis with renal and ureteral calculous obstruction (principal); K76.0 Fatty (change of) liver, not elsewhere classified; K57.30 Diverticulosis of large intestine without perforation or abscess without bleeding; Z88.8 Allergy status to other drugs, medicaments and biological substances; Z91.030 Bee allergy status
CPT/HCPCS: 36415; 93005; 80053; 82150; 83605; 83690; 84484; 85025; 85610; 85730; 81001; 74176; 99285; 96374; 96375 ×2; 96361; J2270; J2405; J1885

== ENCOUNTER → 2018-08-24 | Outpatient (CLI) | payer OTHER ==
--- NOTE | 2018-08-25 07:03 | US ---
EXAMINATION TYPE: US kidneys/renal and bladder DATE OF EXAM: 08/24/2018 COMPARISON: CT 2019 CLINICAL HISTORY: Q60.2 RENAL AGENESIS. History renal stones , large body habitus EXAM MEASUREMENTS: Right Kidney: 10.8 x 6.1 x 6.3 cm Left Kidney: 11.4 x 5.6 x 5.5 cm Post Void Residual Volume: 45 mL Right Kidney: No hydronephrosis or masses seen , non obstructing calculi Left Kidney: No hydronephrosis or masses seen non obstructing calculi Bladder: wnl Bilateral Jets seen: Yes Normal Post Void Residual: Yes There is no evidence for hydronephrosis at this point in time. No masses are identified. The urinary bladder is anechoic. Bilateral ureteral jets are seen. IMPRESSION: Nonobstructing nephrolithiasis noted bilaterally.
== END ==
LOC: RADUSWWP 15:57
DX: N20.0 Calculus of kidney (principal)
CPT/HCPCS: 76770

== ENCOUNTER 2018-10-16 04:28 | Emergency (ER) | payer OTHER ==
[2018-10-16 04:36] VITALS: TEMP 97.7
[2018-10-16] MEDS ORDERED: KETOROLAC 30 MG/ML 1 ML VIAL IVP ONE (04:38)
[2018-10-16] MEDS ORDERED: SODIUM CHLORIDE 0.9% 1,000 ML IV ONE (04:39)
[2018-10-16] MEDS: HYDROmorphone 0.5 MG/0.5 ML SYRINGE IVP STA ×2 (05:00→05:39)
[2018-10-16 05:08] LABS: Basophils % (A) 1 %; Eosinophils # (A) 0.3 k/uL (0-0.7); Eosinophils % (A) 3 %; HCT 44.8 % (39.0-53.0); HGB 15.5 gm/dL (13.0-17.5); Lymphocytes # (A) 2.6 k/uL (1.0-4.8); Lymphocytes % (A) 32 %; MCH 30.2 pg (25.0-35.0); MCHC 34.6 g/dL (31.0-37.0); Mean Platelet Volume 6.9; Monocytes # (A) 0.5 k/uL (0-1.0); Monocytes % (A) 6 %; Neutrophils # (A) 4.6 k/uL (1.3-7.7); Neutrophils % (A) 57 %; Platelet Count 216 k/uL (150-450); RBC 5.15 m/uL (4.30-5.90); RDW 13.6 % (11.5-15.5); WBC 8.2 k/uL (3.8-10.6)
--- NOTE | 2018-10-16 05:08 | ED ---
Abdominal Pain HPI - General Chief Complaint: Abdominal Pain Stated Complaint: Kidney Stone Time Seen by Provider: 10/16/18 04:37 Source: patient Mode of arrival: ambulatory Limitations: no limitations - History of Present Illness Initial Comments: Сергей is a 43-year-old gentleman with a history of recurrent kidney stones who presents the emergency department today for evaluation of sudden onset of stabbing right-sided flank pain with associated nausea and no vomiting. Patient reports this is identical to previous kidney stones. He reports that he just saw his urologist Dr. Gilmore earlier in the month and was told that he does have stones but does not require any intervention at this time. Patient reports he was in his usual state of health until the evening which time him and his ate chicken both of them became ill he developed diarrhea and some nausea with no vomiting, his developed nausea and vomiting. He reports that past he was able to go to bed but was woken suddenly with a stabbing pain. She denies any associated fevers, chills, cough, chest pain or shortness of breath. - Related Data Home Medications Medication Instructions Recorded Confirmed Acetaminophen-Codeine 300-30mg 1 tab PO Q8H PRN 03/09/17 05/01/18 [Tylenol #3] Previous Rx's Medication Instructions Recorded Ketorolac [Toradol] 10 mg PO Q6HR 5 Days #20 tab 05/01/18 Tamsulosin [Flomax] 0.4 mg PO DAILY #10 cap 05/01/18 HYDROcodone/APAP 5-325MG [Gorman 1 tab PO Q6HR PRN 3 Days #8 tab 10/16/18 5-325] Ondansetron [Zofran ODT] 4 mg PO Q8HR #12 tab 10/16/18 Tamsulosin [Flomax] 0.4 mg PO DAILY #7 cap 10/16/18 Allergies Allergy/AdvReac Type Severity Reaction Status Date / Time venom-honey bee Allergy Unknown Anaphylaxis Verified 10/16/18 04:36 [bee venom (honey bee)] sertraline HCl [From Zoloft] AdvReac Unknown "MAKES ME Verified 10/16/18 04:36 MEAN" PER PT Review of Systems ROS Statement: Those systems with pertinent positive or pertinent negative responses have been documented in the HPI. ROS Other: All systems not noted in ROS Statement are negative. Past Medical History Additional Past Medical History / Comment(s): Diverticulitis, kidney stones, ureter blockage, hx lt shoulder injury History of Any Multi-Drug Resistant Organisms: None Reported Past Surgical History: Appendectomy, Tonsillectomy Additional Past Surgical History / Comment(s): History of right nephrolithiasis with ureteral stricture status post multiple surgeries. Past Anesthesia/Blood Transfusion Reactions: No Reported Reaction Past Psychological History: Depression Smoking Status: Never smoker Past Alcohol Use History: None Reported Past Drug Use History: None Reported General Exam - General Exam Comments Initial Comments: Physical Exam GENERAL: Appears uncomfortable HENT: Normocephalic, Atraumatic. EYES: PERRL, EOMI PULMONARY: Unlabored respirations. No audible rales rhonchi or wheezing was noted. CARDIOVASCULAR: There is a regular rate and rhythm without any murmurs gallops or rubs. ABDOMEN: Soft and nontender with normal bowel sounds. tenderness to percussion of right flank No mcburneys point tenderness, no psoas or rvosing sign SKIN: Skin is clear with no lesions or rashes and otherwise unremarkable. : Deferred NEUROLOGIC: Patient is alert and oriented x3. Moving all extremities spontaneously MUSCULOSKELETAL: Normal extremities with adequate strength and full range of motion. No lower extremity swelling or edema. No calf tenderness. PSYCHIATRIC: Normal psychiatric evaluation. Limitations: no limitations Course Vital Signs 10/16/18 04:33 Temperature 97.7 F Pulse Rate 74 Respiratory 18 Rate Blood Pressure 193/106 O2 Sat by Pulse 99 Oximetry Medical Decision Making - Medical Decision Making The patient was seen and evaluated history is obtained from patient, and review of medical record and since 43-year-old gentleman with a history of recurrent kidney stones presenting with right-sided flank pain identical to previous kidney stones Patient reports toradol and dilaudid usually work for him Labs, KUB, meds ordered Labs reveal normal kidney function KUB with no acute abnormalities Patient was reevaluated after medications and fluids. He is resting much more comfortably at this time. We will discharge the patient home with antiemetics, Flomax and Gorman. Because pharmacies don't open for a number of hours a repeat dose of Dilaudid was given prior to discharge. Follow up with his urologist for outpatient management. - Lab Data Result diagrams: 10/16/18 04:50 10/16/18 04:50 Lab Results 10/16/18 10/16/18 Range/Units 04:50 04:50 WBC 8.2 (3.8-10.6) k/uL RBC 5.15 (4.30-5.90) m/uL Hgb 15.5 (13.0-17.5) gm/dL Hct 44.8 (39.0-53.0) % MCV 87.0 (80.0-100.0) fL MCH 30.2 (25.0-35.0) pg MCHC 34.6 (31.0-37.0) g/dL RDW 13.6 (11.5-15.5) % Plt Count 216 (150-450) k/uL Neutrophils % 57 % Lymphocytes % 32 % Monocytes % 6 % Eosinophils % 3 % Basophils % 1 % Neutrophils # 4.6 (1.3-7.7) k/uL Lymphocytes # 2.6 (1.0-4.8) k/uL Monocytes # 0.5 (0-1.0) k/uL Eosinophils # 0.3 (0-0.7) k/uL Basophils # 0.0 (0-0.2) k/uL Sodium 140 (137-145) mmol/L Potassium 3.9 (3.5-5.1) mmol/L Chloride 105 (98-107) mmol/L Carbon Dioxide 27 (22-30) mmol/L Anion Gap 8 mmol/L BUN 17 (9-20) mg/dL Creatinine 1.09 (0.66-1.25) mg/dL Est GFR (CKD-EPI)AfAm >90 (>60 ml/min/1.73 sqM) Est GFR (CKD-EPI)NonAf 84 (>60 ml/min/1.73 sqM) Glucose 110 H (74-99) mg/dL Calcium 9.0 (8.4-10.2) mg/dL Disposition Clinical Impression: Renal colic on right side Disposition: HOME SELF-CARE Condition: Stable Instructions (If sedation given, give patient instructions): Kidney Stones (ED) Prescriptions: Tamsulosin [Flomax] 0.4 mg PO DAILY #7 cap HYDROcodone/APAP 5-325MG [[place] 5-325] 1 tab PO Q6HR PRN 3 Days #8 tab PRN Reason: Pain Ondansetron [Zofran ODT] 4 mg PO Q8HR #12 tab Is patient prescribed a controlled substance at d/c from ED?: No Referrals: [facility],Clinic [Primary Care Provider] - 1-2 days
[2018-10-16 05:10] LABS: African American GFR (CKD) >90 (>60 ml/min/1.73 sqM); Anion Gap 8 mmol/L; Blood Urea Nitrogen 17 mg/dL (9-20); Carbon Dioxide 27 mmol/L (22-30); Chloride 105 mmol/L (98-107); Glucose 110 mg/dL (74-99); Potassium 3.9 mmol/L (3.5-5.1); Sodium 140 mmol/L (137-145)
--- NOTE | 2018-10-16 05:20 | XR ---
EXAM: XR Abdomen, 2 Views CLINICAL HISTORY: Pain TECHNIQUE: Frontal view of the abdomen/pelvis with upright view of the abdomen. COMPARISON: No relevant prior studies available. FINDINGS: Intraperitoneal space: No free air. Gastrointestinal tract: Unremarkable. No dilation. Bones/joints: Unremarkable. IMPRESSION: Normal abdominal x-rays.
[2018-10-16] MEDS ORDERED: HYDROmorphone 1 MG/ML 1 ML SYRINGE IVP STA (05:36)
[2018-10-16 05:55] VITALS: BP 149/104; PULSE 63; RESP 16
== END 2018-10-16 05:55 | disposition home or self-care (01) ==
LOC: EC 04:28
DX: N23 Unspecified renal colic (principal); Z87.442 Personal history of urinary calculi; Z88.8 Allergy status to other drugs, medicaments and biological substances; Z91.030 Bee allergy status
CPT/HCPCS: 36415; 80048; 85025; 74018; 99284; 96374; 96375; 96361; J1885; J1170

== ENCOUNTER 2019-06-27 10:14 | Emergency (ER) | payer OTHER ==
[2019-06-27 10:30] VITALS: TEMP 97.4
[2019-06-27] MEDS ORDERED: KETOROLAC 30 MG/ML 1 ML VIAL IVP STA (10:57)
[2019-06-27] MEDS ORDERED: PANTOPRAZOLE 40 MG/10 ML VIAL IVP STA (10:57)
--- NOTE | 2019-06-27 11:01 | ED ---
Abdominal Pain HPI - General Chief Complaint: Abdominal Pain Stated Complaint: adb pain Time Seen by Provider: 06/27/19 10:38 Source: patient, RN notes reviewed Mode of arrival: ambulatory Limitations: no limitations - History of Present Illness Initial Comments: This a 45-year-old male with a history of recent vastectomy days ago who complains the onset of left lower quadrant abdominal pain is started last evening. He states he feels like previous episodes of diverticulitis is had in the past. He's had nausea. He states pain currently 7/10 severity gets worse with upright movement. No overt fevers chills or sweats at this time however. He was seen by Dr. San this morning for postop evaluation and the patient states that this is not related to. No other current modifying factors. He does have a history of a small ruptured diverticulitis episode in the past he has had not had surgery. MD Complaint: abdominal pain - Related Data Home Medications Medication Instructions Recorded Confirmed Ibuprofen [Motrin Ib] 800 mg PO Q6H PRN 06/27/19 06/27/19 Naproxen 500 mg PO BID PRN 06/27/19 06/27/19 Previous Rx's Medication Instructions Recorded Amoxic-Pot Clav 875-125Mg 1 tab PO BID 3 Days #28 tab 06/27/19 [Augmentin 875-125] Hydrocodone/Acetaminophen [[place] 1 each PO Q6HR PRN #20 tab 06/27/19 5-325] Ibuprofen 800 mg PO Q6HR PRN #20 tablet 06/27/19 metroNIDAZOLE [Flagyl] 500 mg PO TID #42 tab 06/27/19 Allergies Allergy/AdvReac Type Severity Reaction Status Date / Time venom-honey bee Allergy Unknown Anaphylaxis Verified 06/27/19 10:57 [bee venom (honey bee)] sertraline HCl [From Zoloft] AdvReac Unknown "MAKES ME Verified 06/27/19 10:57 MEAN" PER PT Review of Systems ROS Statement: Those systems with pertinent positive or pertinent negative responses have been documented in the HPI. ROS Other: All systems not noted in ROS Statement are negative. Past Medical History Additional Past Medical History / Comment(s): Diverticulitis, kidney stones, ureter blockage, hx lt shoulder injury History of Any Multi-Drug Resistant Organisms: None Reported Past Surgical History: Appendectomy, Tonsillectomy Additional Past Surgical History / Comment(s): History of right nephrolithiasis with ureteral stricture status post multiple surgeries. Past Anesthesia/Blood Transfusion Reactions: No Reported Reaction Past Psychological History: Depression Smoking Status: Never smoker Past Alcohol Use History: None Reported Past Drug Use History: None Reported General Exam - General Exam Comments Initial Comments: This is a well-developed well-nourished awake alert oriented times X3 male Limitations: no limitations General appearance: alert, anxious Head exam: Present: atraumatic, normocephalic, normal inspection Eye exam: Present: normal appearance, PERRL, EOMI. Absent: scleral icterus, conjunctival injection, periorbital swelling ENT exam: Present: normal exam, mucous membranes moist Neck exam: Present: normal inspection. Absent: tenderness, meningismus, lymphadenopathy Respiratory exam: Present: normal lung sounds bilaterally. Absent: respiratory distress, wheezes, rales, rhonchi, stridor Cardiovascular Exam: Present: regular rate, normal rhythm, normal heart sounds. Absent: systolic murmur, diastolic murmur, rubs, gallop, clicks GI/Abdominal exam: Present: soft, tenderness (Palpation of the right and left lower quadrant increased on the left with some voluntary guarding no overt rebound masses or bruits at this time), normal bowel sounds. Absent: distended, guarding, rebound, rigid Rectal exam: Present: deferred Extremities exam: Present: normal inspection, full ROM, normal capillary refill. Absent: tenderness, pedal edema, joint swelling, calf tenderness Back exam: Present: normal inspection Neurological exam: Present: alert, oriented X3, CN II-XII intact Psychiatric exam: Present: normal affect, normal mood Skin exam: Present: warm, dry, intact, normal color. Absent: rash Course Vital Signs 06/27/19 10:28 Temperature 97.4 F L Pulse Rate 77 Respiratory 16 Rate Blood Pressure 179/118 O2 Sat by Pulse 98 Oximetry Medical Decision Making - Medical Decision Making I did discuss [employer] the patient has patient does desire to go home he is a reasonable candidate for outpatient treatment diverticulitis. Be given a dose of IV antibiotics he will be discharged on appropriate medications including antibiotics and pain medication. He is a follow-up with his doctor and return when necessary. He was cautioned of symptoms get worse he should return - Lab Data Result diagrams: 06/27/19 10:51 06/27/19 10:51 Lab Results 06/27/19 06/27/19 06/27/19 Range/Units 10:51 10:51 10:51 WBC 9.1 (3.8-10.6) k/uL RBC 5.43 (4.30-5.90) m/uL Hgb 16.4 (13.0-17.5) gm/dL Hct 46.3 (39.0-53.0) % MCV 85.3 (80.0-100.0) fL MCH 30.3 (25.0-35.0) pg MCHC 35.5 (31.0-37.0) g/dL RDW 13.4 (11.5-15.5) % Plt Count 223 (150-450) k/uL Neutrophils % 65 % Lymphocytes % 23 % Monocytes % 5 % Eosinophils % 4 % Basophils % 1 % Neutrophils # 6.0 (1.3-7.7) k/uL Lymphocytes # 2.1 (1.0-4.8) k/uL Monocytes # 0.4 (0-1.0) k/uL Eosinophils # 0.4 (0-0.7) k/uL Basophils # 0.0 (0-0.2) k/uL Sodium 139 (137-145) mmol/L Potassium 4.2 (3.5-5.1) mmol/L Chloride 104 (98-107) mmol/L Carbon Dioxide 27 (22-30) mmol/L Anion Gap 8 mmol/L BUN 16 (9-20) mg/dL Creatinine 0.90 (0.66-1.25) mg/dL Est GFR (CKD-EPI)AfAm >90 (>60 ml/min/1.73 sqM) Est GFR (CKD-EPI)NonAf >90 (>60 ml/min/1.73 sqM) Glucose 95 (74-99) mg/dL Plasma Lactic Acid [place] 0.9 (0.7-2.0) mmol/L Calcium 9.3 (8.4-10.2) mg/dL Total Bilirubin 0.7 (0.2-1.3) mg/dL AST 25 (17-59) U/L ALT 26 (4-49) U/L Alkaline Phosphatase 82 (38-126) U/L Creatine Kinase 111 (55-170) U/L Total Protein 7.7 (6.3-8.2) g/dL Albumin 4.6 (3.5-5.0) g/dL Amylase 59 (30-110) U/L Lipase 241 (23-300) U/L Urine Color Urine Appearance (Clear) Urine pH (5.0-8.0) Ur Specific [place] (1.001-1.035) Urine Protein (Negative) Urine Glucose (UA) (Negative) Urine Ketones (Negative) Urine Blood (Negative) Urine Nitrite (Negative) Urine Bilirubin (Negative) Urine Urobilinogen (<2.0) mg/dL Ur Leukocyte Esterase (Negative) Urine RBC (0-5) /hpf Urine WBC (0-5) /hpf Ur Squamous Epith Cells (0-4) /hpf Urine Mucus (None) /hpf 06/27/19 Range/Units 11:05 WBC (3.8-10.6) k/uL RBC (4.30-5.90) m/uL Hgb (13.0-17.5) gm/dL Hct (39.0-53.0) % MCV (80.0-100.0) fL MCH (25.0-35.0) pg MCHC (31.0-37.0) g/dL RDW (11.5-15.5) % Plt Count (150-450) k/uL Neutrophils % % Lymphocytes % % Monocytes % % Eosinophils % % Basophils % % Neutrophils # (1.3-7.7) k/uL Lymphocytes # (1.0-4.8) k/uL Monocytes # (0-1.0) k/uL Eosinophils # (0-0.7) k/uL Basophils # (0-0.2) k/uL Sodium (137-145) mmol/L Potassium (3.5-5.1) mmol/L Chloride (98-107) mmol/L Carbon Dioxide (22-30) mmol/L Anion Gap mmol/L BUN (9-20) mg/dL Creatinine (0.66-1.25) mg/dL Est GFR (CKD-EPI)AfAm (>60 ml/min/1.73 sqM) Est GFR (CKD-EPI)NonAf (>60 ml/min/1.73 sqM) Glucose (74-99) mg/dL Plasma Lactic Acid [place] (0.7-2.0) mmol/L Calcium (8.4-10.2) mg/dL Total Bilirubin (0.2-1.3) mg/dL AST (17-59) U/L ALT (4-49) U/L Alkaline Phosphatase (38-126) U/L Creatine Kinase (55-170) U/L Total Protein (6.3-8.2) g/dL Albumin (3.5-5.0) g/dL Amylase (30-110) U/L Lipase (23-300) U/L Urine Color Yellow Urine Appearance Clear (Clear) Urine pH 6.5 (5.0-8.0) Ur Specific [place] 1.027 (1.001-1.035) Urine Protein 1+ H (Negative) Urine Glucose (UA) Negative (Negative) Urine Ketones Negative (Negative) Urine Blood Negative (Negative) Urine Nitrite Negative (Negative) Urine Bilirubin Negative (Negative) Urine Urobilinogen <2.0 (<2.0) mg/dL Ur Leukocyte Esterase Negative (Negative) Urine RBC 2 (0-5) /hpf Urine WBC <1 (0-5) /hpf Ur Squamous Epith Cells <1 (0-4) /hpf Urine Mucus Rare H (None) /hpf - Radiology Data Radiology results: report reviewed (I did review the imaging and report is evidence of uncomplicated diverticulitis.), image reviewed Disposition Clinical Impression: Diverticulitis large intestine, Abdominal pain Disposition: HOME SELF-CARE Condition: Good Instructions (If sedation given, give patient instructions): Abdominal Pain (ED), Diverticulitis (ED) Prescriptions: Amoxic-Pot Clav 875-125Mg [Augmentin 875-125] 1 tab PO BID 3 Days #28 tab metroNIDAZOLE [Flagyl] 500 mg PO TID #42 tab Ibuprofen 800 mg PO Q6HR PRN #20 tablet PRN Reason: Pain Hydrocodone/Acetaminophen [[place] 5-325] 1 each PO Q6HR PRN #20 tab PRN Reason: Pain Is patient prescribed a controlled substance at d/c from ED?: Yes When asked, does pt state using other controlled substances?: No If prescribed controlled substance>3 days was MAPS reviewed?: Prescribed <3 Days If opioid is for acute pain is fill amount 7 days or less?: Yes If Rx opioid, was Start Talking consent form obtained?: Yes Referrals: [facility],Clinic [Primary Care Provider] - 1-2 days
[2019-06-27 11:09] LABS: Basophils % (A) 1 %; Eosinophils # (A) 0.4 k/uL (0-0.7); Eosinophils % (A) 4 %; HCT 46.3 % (39.0-53.0); HGB 16.4 gm/dL (13.0-17.5); Lymphocytes # (A) 2.1 k/uL (1.0-4.8); Lymphocytes % (A) 23 %; MCH 30.3 pg (25.0-35.0); MCHC 35.5 g/dL (31.0-37.0); MCV 85.3 fL (80.0-100.0); Mean Platelet Volume 7.1; Monocytes # (A) 0.4 k/uL (0-1.0); Monocytes % (A) 5 %; Neutrophils % (A) 65 %; Platelet Count 223 k/uL (150-450); RBC 5.43 m/uL (4.30-5.90); RDW 13.4 % (11.5-15.5); WBC 9.1 k/uL (3.8-10.6)
--- NOTE | 2019-06-27 11:10 | XR ---
EXAMINATION TYPE: XR KUB DATE OF EXAM: 06/27/2019 COMPARISON: 10/16/2018 HISTORY: Abdominal pain TECHNIQUE: One view abdominal series FINDINGS: The osseous structures are intact. The bowel gas pattern is nonspecific. Densities overlying the tico g thorne bilaterally likely relate scapula. Hypertrophic changes of the acetabulum can be associated with femoral acetabular impingement. IMPRESSION: 1. Nonspecific abdomen. No suspicious calcifications. 2. Correlate for femoral acetabular impingement.
[2019-06-27 11:21] LABS: ALT 26 U/L (4-49); AST 25 U/L (17-59); African American GFR (CKD) >90 (>60 ml/min/1.73 sqM); Albumin 4.6 g/dL (3.5-5.0); Alkaline Phosphatase 82 U/L (38-126); Amylase 59 U/L (30-110); Anion Gap 8 mmol/L; Blood Urea Nitrogen 16 mg/dL (9-20); Calcium 9.3 mg/dL (8.4-10.2); Carbon Dioxide 27 mmol/L (22-30); Chloride 104 mmol/L (98-107); Creatine Kinase 111 U/L (55-170); Glucose 95 mg/dL (74-99); Non-African American GFR(CKD) >90 (>60 ml/min/1.73 sqM); Potassium 4.2 mmol/L (3.5-5.1); Sodium 139 mmol/L (137-145); Total Bilirubin 0.7 mg/dL (0.2-1.3); Total Protein 7.7 g/dL (6.3-8.2)
[2019-06-27 11:37] LABS: Appearance,Urine Clear (Clear); Bilirubin,Urine Negative (Negative); Blood,Urine Negative (Negative); Color,Urine Yellow; Glucose,Urine (UA) Negative (Negative); Ketones,Urine Negative (Negative); Leukocyte Esterase,Urine Negative (Negative); Mucus,Urine Rare /hpf; Nitrite,Urine Negative (Negative); PH, Urine 6.5 (5.0-8.0); Protein,Urine 1+ (Negative); RBC,Urine 2 /hpf (0-5); Specific Gravity,Urine 1.027 (1.001-1.035); Squamous Epithelial Cell,Urine <1 /hpf (0-4); Urobilinogen,Urine <2.0 mg/dL (<2.0); WBC,Urine <1 /hpf (0-5)
--- NOTE | 2019-06-27 11:44 | CT ---
EXAMINATION TYPE: CT abdomen pelvis w con DATE OF EXAM: 06/27/2019 COMPARISON: CT dated 05/01/2018 HISTORY: Left lower quadrant pain, diverticulitis suspected CT DLP: 2170.4 mGycm Automated exposure control for dose reduction was used. TECHNIQUE: Helical acquisition of images was performed from the lung bases through the pelvis. CONTRAST: Performed without Oral Contrast and with IV Contrast, patient injected with 100 mL of Isovue 300. FINDINGS: LUNG BASES: No significant abnormality is appreciated. LIVER/GB: Liver is enlarged. Hepatic parenchyma is diffusely hypoattenuated in comparison to that of the spleen, most commonly seen in hepatic steatosis. This finding limits evaluation for hepatic lori s. No gross evidence of hepatic mass is seen. No intrahepatic biliary ductal dilatation. No cholelith iasis PANCREAS: No significant abnormality is seen. SPLEEN: Spleen is enlarged measuring 15.8 cm. ADRENALS: No significant abnormality is seen. KIDNEYS: Previously seen moderate right-sided hydronephrosis has resolved in the interim. There is a too small to accurately characterize medial right midpole subcentimeter hypoattenuated renal lesion. FREE AIR: No free air is visualized. ADENOPATHY: No greater than 1 cm short axis lymph node in the abdomen or pelvis. Shotty adenopathy i n the retroperitoneum. OSSEOUS STRUCTURES: Moderate arthropathy of the lumbosacral spine. BOWEL: Focal fat stranding surrounds numerous sigmoid colonic diverticula. There is adjacent fascial thickening. No pneumoperitoneum is seen to suggest microperforation. No surrounding fluid collection seen. No dilated large or small bowel. OTHER: IMPRESSION: 1. ACUTE UNCOMPLICATED SIGMOID DIVERTICULOSIS. 2. REDEMONSTRATION OF HEPATOSPLENOMEGALY AND HEPATIC STEATOSIS.
[2019-06-27] MEDS ORDERED: HYDROmorphone 1 MG/ML 1 ML SYRINGE IVP STA (12:11)
[2019-06-27] MEDS ORDERED: cefTRIAXone IN SWFI 1,000 MG/10 ML SYRINGE IVP STA (12:11)
[2019-06-27 12:42] VITALS: BP 169/104; PULSE 78; RESP 18
== END 2019-06-27 12:34 | disposition home or self-care (01) ==
LOC: SUPCPDRO 10:14 → EC 10:14
DX: K57.32 Diverticulitis of large intestine without perforation or abscess without bleeding (principal); Z88.8 Allergy status to other drugs, medicaments and biological substances; Z91.030 Bee allergy status; Z87.442 Personal history of urinary calculi; Z90.89 Acquired absence of other organs; Z98.890 Other specified postprocedural states
CPT/HCPCS: 36415; 80053; 82150; 82550; 83605; 83690; 85025; 81001; 74018; 74177; 99284; 96374; 96375 ×3; J0696; J1885; J1170; C9113; Q9967

== ENCOUNTER 2020-03-09 12:20 | Emergency (ER) | payer OTHER ==
[2020-03-09 12:32] VITALS: RESP 18; TEMP 97.4
[2020-03-09] MEDS ORDERED: HYDROmorphone 1 MG/ML 1 ML SYRINGE IVP STA (12:57)
[2020-03-09] MEDS ORDERED: SODIUM CHLORIDE 0.9% 2,000 ML IV STA (12:57)
[2020-03-09] MEDS ORDERED: KETOROLAC 15 MG/ML 1 ML VIAL IVP STA (12:57)
[2020-03-09] MEDS ORDERED: ONDANSETRON 4 MG/2 ML VIAL IVP STA (12:57)
--- NOTE | 2020-03-09 13:03 | ED ---
Abdominal Pain HPI - General Chief Complaint: Abdominal Pain Stated Complaint: Poss kidney stone Time Seen by Provider: 03/09/20 12:40 Source: patient, family, RN notes reviewed, old records reviewed Mode of arrival: ambulatory Limitations: no limitations - History of Present Illness Initial Comments: This patient's a 44-year-old male who presents emergency department today with complaints of right-sided lower abdominal and flank pain starting at 8 AM. Patient believes that he was passing a kidney stone. Patient ports that he's had a history of multiple kidney stones. Patient states that he has nausea but no specific vomiting. Patient reports is also had history of diverticulitis in the past. Denies changes in stools. Patient denies any chest pain, shortness of breath. He reports that his urologist is . Patient states these had litho tripsies in the past or stones. - Related Data Previous Rx's Medication Instructions Recorded Acetaminophen-Codeine 300-30mg 1 tab PO Q6H PRN 3 Days #12 tablet 03/09/20 [Tylenol w/codeine #3] Ketorolac [Toradol] 10 mg PO Q6HR #12 tab 03/09/20 Ondansetron Odt [Zofran Odt] 4 mg PO Q8HR PRN #12 tab 03/09/20 Tamsulosin [Flomax] 0.4 mg PO DAILY #7 cap 03/09/20 Allergies Allergy/AdvReac Type Severity Reaction Status Date / Time venom-honey bee Allergy Unknown Anaphylaxis Verified 03/09/20 13:48 [bee venom (honey bee)] sertraline HCl [From Zoloft] AdvReac Unknown "MAKES ME Verified 03/09/20 13:48 MEAN" PER PT Review of Systems ROS Statement: Those systems with pertinent positive or pertinent negative responses have been documented in the HPI. ROS Other: All systems not noted in ROS Statement are negative. Past Medical History Additional Past Medical History / Comment(s): Diverticulitis, kidney stones, ureter blockage, hx lt shoulder injury History of Any Multi-Drug Resistant Organisms: None Reported Past Surgical History: Appendectomy, Tonsillectomy Additional Past Surgical History / Comment(s): History of right nephrolithiasis with ureteral stricture status post multiple surgeries. Past Anesthesia/Blood Transfusion Reactions: No Reported Reaction Past Psychological History: Depression Smoking Status: Former smoker, Never smoker Past Alcohol Use History: None Reported Past Drug Use History: None Reported General Exam - General Exam Comments Initial Comments: 44-year-old male. Alert and oriented 3 Limitations: no limitations General appearance: alert, in no apparent distress Head exam: Present: atraumatic, normocephalic, normal inspection Eye exam: Present: normal appearance ENT exam: Present: normal exam, mucous membranes moist Neck exam: Present: normal inspection. Absent: tenderness, meningismus, lymphadenopathy Respiratory exam: Present: normal lung sounds bilaterally. Absent: respiratory distress, wheezes, rales, rhonchi, stridor Cardiovascular Exam: Present: regular rate GI/Abdominal exam: Present: soft, tenderness (Right lower quadrant tenderness), normal bowel sounds. Absent: distended, guarding, rebound, rigid Extremities exam: Present: normal inspection, full ROM, normal capillary refill. Absent: tenderness, pedal edema, joint swelling, calf tenderness Back exam: Present: normal inspection Neurological exam: Present: alert, oriented X3, CN II-XII intact Psychiatric exam: Present: normal affect, normal mood Course Vital Signs 03/09/20 12:30 Temperature 97.4 F L Pulse Rate 79 Respiratory 18 Rate Blood Pressure 156/111 O2 Sat by Pulse 97 Oximetry Medical Decision Making - Medical Decision Making 44-year-old male presents to return today with right lower quadrant and right flank pain starting 8 AM today. Bleeding is passing a kidney stone. He reports having history of multiple kidney stones in the past and has required lithotripsy by Dr. bliss on. At this time patient's labwork was reviewed and was given IV pain medication does report relief of symptoms. Blood work was reviewed and unremarkable. Urine shows no sign of infection or hematuria. Patient had computed tomography scan without contrast showing a left-sided renal stone but no signs of hydronephrosis or obstructing stone at this time. It Is poorly visualized with no signs of inflammatory changes. White blood cell count within normal limits and afebrile local low suspicion for appendicitis. Patient was aborted these results. Discussed she may pass a smaller stone at this time less than 2 mm. Discussed Patient instructed follow-up with primary care doctor return parameters were discussed. - Lab Data Result diagrams: 03/09/20 13:09 03/09/20 13:09 Lab Results 03/09/20 03/09/20 03/09/20 Range/Units 13:09 13:09 13:09 WBC 8.1 (3.8-10.6) k/uL RBC 5.58 (4.30-5.90) m/uL Hgb 17.4 (13.0-17.5) gm/dL Hct 48.9 (39.0-53.0) % MCV 87.6 (80.0-100.0) fL MCH 31.1 (25.0-35.0) pg MCHC 35.6 (31.0-37.0) g/dL RDW 12.9 (11.5-15.5) % Plt Count 231 (150-450) k/uL MPV 7.0 Neutrophils % 55 % Lymphocytes % 35 % Monocytes % 4 % Eosinophils % 3 % Basophils % 1 % Neutrophils # 4.5 (1.3-7.7) k/uL Lymphocytes # 2.8 (1.0-4.8) k/uL Monocytes # 0.3 (0-1.0) k/uL Eosinophils # 0.3 (0-0.7) k/uL Basophils # 0.1 (0-0.2) k/uL Sodium 138 (137-145) mmol/L Potassium 4.3 (3.5-5.1) mmol/L Chloride 107 (98-107) mmol/L Carbon Dioxide 25 (22-30) mmol/L Anion Gap 6 mmol/L BUN 14 (9-20) mg/dL Creatinine 0.94 (0.66-1.25) mg/dL Est GFR (CKD-EPI)AfAm >90 (>60 ml/min/1.73 sqM) Est GFR (CKD-EPI)NonAf >90 (>60 ml/min/1.73 sqM) Glucose 101 H (74-99) mg/dL Calcium 9.1 (8.4-10.2) mg/dL Total Bilirubin 0.6 (0.2-1.3) mg/dL AST 24 (17-59) U/L ALT 29 (4-49) U/L Alkaline Phosphatase 76 (38-126) U/L Total Protein 7.3 (6.3-8.2) g/dL Albumin 4.3 (3.5-5.0) g/dL Amylase 67 (30-110) U/L Lipase 372 H (23-300) U/L Urine Color Yellow Urine Appearance Clear (Clear) Urine pH 6.0 (5.0-8.0) Ur Specific [place] 1.017 (1.001-1.035) Urine Protein Negative (Negative) Urine Glucose (UA) Negative (Negative) Urine Ketones Negative (Negative) Urine Blood Negative (Negative) Urine Nitrite Negative (Negative) Urine Bilirubin Negative (Negative) Urine Urobilinogen <2.0 (<2.0) mg/dL Ur Leukocyte Esterase Negative (Negative) - Radiology Data Radiology results: report reviewed No sign of renal mass. 2 mm nonobstructing calculus in the left kidney. No additional colliculi identified. No hydronephrosis. Poor vision physician appendix. No inflammatory process in the right lower quadrant. Scattered di verticulosis. No Signs of Diverticulitis. No inflammatory process. Disposition Clinical Impression: Right sided abdominal pain Disposition: HOME SELF-CARE Condition: Good Instructions (If sedation given, give patient instructions): Abdominal Pain (ED) Additional Instructions: Please use medication as discussed. Please follow up with family doctor if symptoms have not improved over the next two days. Please return to the emergency room if your symptoms increase or worsen or for any other concerns. Prescriptions: Tamsulosin [Flomax] 0.4 mg PO DAILY #7 cap Ketorolac [Toradol] 10 mg PO Q6HR #12 tab Acetaminophen-Codeine 300-30mg [Tylenol w/codeine #3] 1 tab PO Q6H PRN 3 Days #12 tablet PRN Reason: Pain Ondansetron Odt [Zofran Odt] 4 mg PO Q8HR PRN #12 tab PRN Reason: Nausea Is patient prescribed a controlled substance at d/c from ED?: Yes If prescribed controlled substance>3 days was MAPS reviewed?: Prescribed <3 Days If opioid is for acute pain is fill amount 7 days or less?: Yes If Rx opioid, was Start Talking consent form obtained?: Yes Referrals: [facility],Clinic [Primary Care Provider] - 1-2 days Time of Disposition: 13:56
[2020-03-09 13:24] LABS: Basophils # (A) 0.1 k/uL (0-0.2); Basophils % (A) 1 %; Eosinophils # (A) 0.3 k/uL (0-0.7); Eosinophils % (A) 3 %; HCT 48.9 % (39.0-53.0); HGB 17.4 gm/dL (13.0-17.5); Lymphocytes # (A) 2.8 k/uL (1.0-4.8); Lymphocytes % (A) 35 %; MCH 31.1 pg (25.0-35.0); MCHC 35.6 g/dL (31.0-37.0); MCV 87.6 fL (80.0-100.0); Monocytes # (A) 0.3 k/uL (0-1.0); Monocytes % (A) 4 %; Neutrophils # (A) 4.5 k/uL (1.3-7.7); Neutrophils % (A) 55 %; Platelet Count 231 k/uL (150-450); RBC 5.58 m/uL (4.30-5.90); RDW 12.9 % (11.5-15.5); WBC 8.1 k/uL (3.8-10.6)
[2020-03-09 13:33] LABS: Appearance,Urine Clear (Clear); Bilirubin,Urine Negative (Negative); Blood,Urine Negative (Negative); Color,Urine Yellow; Glucose,Urine (UA) Negative (Negative); Ketones,Urine Negative (Negative); Leukocyte Esterase,Urine Negative (Negative); Nitrite,Urine Negative (Negative); Protein,Urine Negative (Negative); Specific Gravity,Urine 1.017 (1.001-1.035); Urobilinogen,Urine <2.0 mg/dL (<2.0)
[2020-03-09 13:35] LABS: ALT 29 U/L (4-49); AST 24 U/L (17-59); African American GFR (CKD) >90 (>60 ml/min/1.73 sqM); Albumin 4.3 g/dL (3.5-5.0); Alkaline Phosphatase 76 U/L (38-126); Amylase 67 U/L (30-110); Anion Gap 6 mmol/L; Blood Urea Nitrogen 14 mg/dL (9-20); Calcium 9.1 mg/dL (8.4-10.2); Carbon Dioxide 25 mmol/L (22-30); Chloride 107 mmol/L (98-107); Glucose 101 mg/dL (74-99); Lipase 372 U/L (23-300); Non-African American GFR(CKD) >90 (>60 ml/min/1.73 sqM); Potassium 4.3 mmol/L (3.5-5.1); Sodium 138 mmol/L (137-145); Total Bilirubin 0.6 mg/dL (0.2-1.3); Total Protein 7.3 g/dL (6.3-8.2)
--- NOTE | 2020-03-09 13:52 | CT ---
EXAMINATION TYPE: CT abdomen pelvis wo con DATE OF EXAM: 03/09/2020 COMPARISON: 06/27/2019 HISTORY: Right lower quadrant pain CT DLP: 1297.4 mGycm Examination of the solid and hollow viscera is limited given the lack of contrast. FINDINGS: LUNG BASES: No evidence for nodule. No evidence for infiltrate. LIVER/GB: The gallbladder is unremarkable. No space-occupying hepatic lesion. PANCREAS: No pancreatic mass identified. No inflammatory process seen. SPLEEN: No evidence for splenomegaly. No intrasplenic lesions seen. ADRENALS: No adrenal nodules identified. No evidence for thickening. KIDNEYS: No evidence for renal mass. 2 mm nonobstructing calculus left kidney. No additional calculi identified. No hydronephrosis. BOWEL: Poor visualization of the appendix. No inflammatory process right lower quadrant. Scattered di verticulosis. No evidence of bowel obstruction. No inflammatory process. Lymph nodes: No evidence for adenopathy greater than 1 cm. Abdominal aorta: Atheromatous changes seen. No evidence for aneurysm. Genital organs: No significant abnormality. Other: No significant abnormality. IMPRESSION: 1.Poor visualization of the appendix. No inflammatory process right lower quadrant. 2. Nonobstructing calculus left kidney
[2020-03-09] MEDS ORDERED: HYDROmorphone 1 MG/ML 1 ML SYRINGE IVP PRN (14:08)
[2020-03-09 14:59] VITALS: BP 154/99; PULSE 63
== END 2020-03-09 15:02 | disposition home or self-care (01) ==
LOC: EC 12:20
DX: N20.0 Calculus of kidney (principal); Z88.8 Allergy status to other drugs, medicaments and biological substances; Z91.030 Bee allergy status; Z90.49 Acquired absence of other specified parts of digestive tract; Z87.891 Personal history of nicotine dependence
CPT/HCPCS: 36415; 80053; 82150; 83690; 85025; 81003; 74176; 99285; 96374; 96375 ×2; 96361; J2405; J1170; J1885

== ENCOUNTER 2020-03-14 15:58 | Emergency (ER) | payer OTHER ==
[2020-03-14 16:21] VITALS: TEMP 100
[2020-03-14] MEDS ORDERED: SODIUM CHLORIDE 0.9% 1,000 ML IV STA (16:44)
[2020-03-14] MEDS ORDERED: ONDANSETRON 4 MG/2 ML VIAL IVP STA (16:44)
[2020-03-14] MEDS ORDERED: HYDROmorphone 0.5 MG/0.5 ML SYRINGE IVP STA (16:44)
[2020-03-14 17:35] LABS: Appearance,Urine Clear (Clear); Bilirubin,Urine Negative (Negative); Blood,Urine Negative (Negative); Color,Urine Yellow; Glucose,Urine (UA) Negative (Negative); Ketones,Urine 1+ (Negative); Leukocyte Esterase,Urine Negative (Negative); Nitrite,Urine Negative (Negative); PH, Urine 5.5 (5.0-8.0); Protein,Urine Trace (Negative); Specific Gravity,Urine 1.018 (1.001-1.035); Urobilinogen,Urine <2.0 mg/dL (<2.0)
[2020-03-14 17:37] LABS: ALT 32 U/L (4-49); AST 36 U/L (17-59); African American GFR (CKD) >90 (>60 ml/min/1.73 sqM); Albumin 4.6 g/dL (3.5-5.0); Alkaline Phosphatase 84 U/L (38-126); Amylase 59 U/L (30-110); Anion Gap 10 mmol/L; Blood Urea Nitrogen 16 mg/dL (9-20); Calcium 9.4 mg/dL (8.4-10.2); Carbon Dioxide 21 mmol/L (22-30); Chloride 104 mmol/L (98-107); Glucose 93 mg/dL (74-99); Lipase 241 U/L (23-300); Non-African American GFR(CKD) >90 (>60 ml/min/1.73 sqM); Sodium 135 mmol/L (137-145); Total Bilirubin 1.3 mg/dL (0.2-1.3); Total Protein 7.9 g/dL (6.3-8.2)
[2020-03-14 17:40] LABS: Basophils % (A) 0 %; Eosinophils # (A) 0.1 k/uL (0-0.7); Eosinophils % (A) 2 %; HCT 46.2 % (39.0-53.0); HGB 16.3 gm/dL (13.0-17.5); Hyperchromasia Slight; Lymphocytes # (A) 2.3 k/uL (1.0-4.8); Lymphocytes % (A) 27 %; MCH 30.7 pg (25.0-35.0); MCHC 35.3 g/dL (31.0-37.0); Mean Platelet Volume 7.1; Monocytes # (A) 0.5 k/uL (0-1.0); Monocytes % (A) 6 %; Neutrophils # (A) 5.3 k/uL (1.3-7.7); Neutrophils % (A) 64 %; Platelet Count 221 k/uL (150-450); RBC 5.31 m/uL (4.30-5.90); RDW 13.5 % (11.5-15.5); WBC 8.4 k/uL (3.8-10.6)
[2020-03-14 17:43] LABS: Potassium 4.4 mmol/L (3.5-5.1)
[2020-03-14 17:59] VITALS: BP 154/102; PULSE 75; RESP 18
[2020-03-14] MEDS ORDERED: AMOXIC-POT CLAV 875MG STARTER PACK 2 TAB BTL PO STA (18:34)
--- NOTE | 2020-03-14 18:38 | ED ---
General Adult HPI - General Chief complaint: Abdominal Pain Stated complaint: diverticulitis Time Seen by Provider: 03/14/20 16:34 Source: patient, RN notes reviewed Mode of arrival: ambulatory Limitations: no limitations - History of Present Illness Initial comments: 44-year-old male with a past medical history of diverticulitis, kidney stones, left shoulder injury presents to the emergency room for a chief complaint of diverticulitis. Patient reports he has had diverticulitis several times in the past. Patient reports his symptoms are consistent and include left lower quadrant pain, nausea, and diarrhea. States these have been ongoing since . States he wanted to see his primary care provider but they were closed. States he went to urgent care but they did not want to treat him because it was diverticulitis and sent him to the ER. Patient reports that he just wants antibiotics. He reports he had a CAT scan 5 days ago for possible kidney stone. There is no inflammatory process at that time however he was not having symptoms at that time. There were scattered diverticuli.Patient has no other complaints at this time including shortness of breath, chest pain, abdominal pain, nausea or vomiting, headache, or visual changes. - Related Data Previous Rx's Medication Instructions Recorded Acetaminophen-Codeine 300-30mg 1 tab PO Q6H PRN 3 Days #12 tablet 03/09/20 [Tylenol w/codeine #3] Ketorolac [Toradol] 10 mg PO Q6HR #12 tab 03/09/20 Ondansetron Odt [Zofran Odt] 4 mg PO Q8HR PRN #12 tab 03/09/20 Tamsulosin [Flomax] 0.4 mg PO DAILY #7 cap 03/09/20 Amoxicillin/Potassium Clav 1 tab PO Q12HR #20 tab 03/14/20 [Augmentin 875-125 Tablet] Allergies Allergy/AdvReac Type Severity Reaction Status Date / Time venom-honey bee Allergy Unknown Anaphylaxis Verified 03/14/20 16:21 [bee venom (honey bee)] sertraline HCl [From Zoloft] AdvReac Unknown "MAKES ME Verified 03/14/20 16:21 MEAN" PER PT Review of Systems ROS Statement: Those systems with pertinent positive or pertinent negative responses have been documented in the HPI. ROS Other: All systems not noted in ROS Statement are negative. Past Medical History Past Medical History: No Reported History Additional Past Medical History / Comment(s): Diverticulitis, kidney stones, ureter blockage, hx lt shoulder injury History of Any Multi-Drug Resistant Organisms: None Reported Past Surgical History: Appendectomy, Tonsillectomy Additional Past Surgical History / Comment(s): History of right nephrolithiasis with ureteral stricture status post multiple surgeries. Past Anesthesia/Blood Transfusion Reactions: No Reported Reaction Past Psychological History: Depression Smoking Status: Former smoker, Never smoker Past Alcohol Use History: None Reported Past Drug Use History: None Reported General Exam Limitations: no limitations General appearance: alert, in no apparent distress Head exam: Present: atraumatic, normocephalic, normal inspection Eye exam: Present: normal appearance, PERRL, EOMI. Absent: scleral icterus, conjunctival injection, periorbital swelling ENT exam: Present: normal exam, mucous membranes moist Neck exam: Present: normal inspection. Absent: tenderness, meningismus, lymphadenopathy Respiratory exam: Present: normal lung sounds bilaterally. Absent: respiratory distress, wheezes, rales, rhonchi, stridor Cardiovascular Exam: Present: regular rate, normal rhythm, normal heart sounds. Absent: systolic murmur, diastolic murmur, rubs, gallop, clicks GI/Abdominal exam: Present: soft, tenderness (Mild tenderness left lower quadrant, no guarding or rebound.), normal bowel sounds. Absent: distended, guarding, rebound, rigid Neurological exam: Present: alert, oriented X3 Course Vital Signs 03/14/20 03/14/20 16:18 17:58 Temperature 100.0 F H Pulse Rate 74 75 Respiratory 20 18 Rate Blood Pressure 209/135 154/102 O2 Sat by Pulse 98 98 Oximetry Medical Decision Making - Medical Decision Making Vitals are stable. Patient initially a temperature of 100.0, this was repeated and is 98.9. he was initially hypertensive as well. This is likely secondary to pain. It did improve throughout his stay however still slightly hypertensive with a diastolic of 102. Patient reports that he is borderline for needing blood pressure medications and will follow up with his doctor. CBC CMP unrem arkable. Urinalysis is negative. I did recommend CAT scan to reevaluate for diverticulitis however patient refused this stating he knows exactly what this is an just needs antibiotics. Patient will be given Augmentin which she states has helped in the past. If he has any worsening symptoms he will return to the emergency room. - Lab Data Result diagrams: 03/14/20 16:54 03/14/20 16:54 Lab Results 03/14/20 03/14/20 03/14/20 Range/Units 16:54 16:54 16:54 WBC 8.4 (3.8-10.6) k/uL RBC 5.31 (4.30-5.90) m/uL Hgb 16.3 (13.0-17.5) gm/dL Hct 46.2 (39.0-53.0) % MCV 87.0 (80.0-100.0) fL MCH 30.7 (25.0-35.0) pg MCHC 35.3 (31.0-37.0) g/dL RDW 13.5 (11.5-15.5) % Plt Count 221 (150-450) k/uL MPV 7.1 Neutrophils % 64 % Lymphocytes % 27 % Monocytes % 6 % Eosinophils % 2 % Basophils % 0 % Neutrophils # 5.3 (1.3-7.7) k/uL Lymphocytes # 2.3 (1.0-4.8) k/uL Monocytes # 0.5 (0-1.0) k/uL Eosinophils # 0.1 (0-0.7) k/uL Basophils # 0.0 (0-0.2) k/uL Hyperchromasia Slight Sodium 135 L (137-145) mmol/L Potassium 4.4 (3.5-5.1) mmol/L Chloride 104 (98-107) mmol/L Carbon Dioxide 21 L (22-30) mmol/L Anion Gap 10 mmol/L BUN 16 (9-20) mg/dL Creatinine 1.02 (0.66-1.25) mg/dL Est GFR (CKD-EPI)AfAm >90 (>60 ml/min/1.73 sqM) Est GFR (CKD-EPI)NonAf >90 (>60 ml/min/1.73 sqM) Glucose 93 (74-99) mg/dL Calcium 9.4 (8.4-10.2) mg/dL Total Bilirubin 1.3 (0.2-1.3) mg/dL AST 36 (17-59) U/L ALT 32 (4-49) U/L Alkaline Phosphatase 84 (38-126) U/L Total Protein 7.9 (6.3-8.2) g/dL Albumin 4.6 (3.5-5.0) g/dL Amylase 59 (30-110) U/L Lipase 241 (23-300) U/L Urine Color Yellow Urine Appearance Clear (Clear) Urine pH 5.5 (5.0-8.0) Ur Specific [place] 1.018 (1.001-1.035) Urine Protein Trace H (Negative) Urine Glucose (UA) Negative (Negative) Urine Ketones 1+ H (Negative) Urine Blood Negative (Negative) Urine Nitrite Negative (Negative) Urine Bilirubin Negative (Negative) Urine Urobilinogen <2.0 (<2.0) mg/dL Ur Leukocyte Esterase Negative (Negative) Disposition Clinical Impression: Abdominal pain Disposition: HOME SELF-CARE Condition: Good Instructions (If sedation given, give patient instructions): Abdominal Pain (ED), Diverticulitis (ED) Additional Instructions: Please take antibiotics as directed. Drink plenty of fluids. Follow-up with your doctor in one to 2 days. Return to the emergency room for any worsening symptoms. Prescriptions: Amoxicillin/Potassium Clav [Augmentin 875-125 Tablet] 1 tab PO Q12HR #20 tab Is patient prescribed a controlled substance at d/c from ED?: No Referrals: [facility],Clinic [Primary Care Provider] - 1-2 days Time of Disposition: 18:37
== END 2020-03-14 18:57 | disposition home or self-care (01) ==
LOC: EC 15:58
DX: R10.32 Left lower quadrant pain (principal); R11.0 Nausea; R19.7 Diarrhea, unspecified; I10 Essential (primary) hypertension; Z88.8 Allergy status to other drugs, medicaments and biological substances; Z91.030 Bee allergy status; Z87.891 Personal history of nicotine dependence; Z90.49 Acquired absence of other specified parts of digestive tract
CPT/HCPCS: 36415; 80053; 82150; 83690; 85025; 81003; 99284; 96374; 96375; 96361; J2405; J1170

== ENCOUNTER 2020-03-20 10:26 | Inpatient (IN) | payer OTHER ==
[2020-03-20] MEDS ORDERED: KETOROLAC 15 MG/ML 1 ML VIAL IVP STA (11:17)
[2020-03-20] MEDS ORDERED: ONDANSETRON 4 MG/2 ML VIAL IVP STA (11:17)
[2020-03-20] MEDS ORDERED: SODIUM CHLORIDE 0.9% 1,000 ML IV STA (11:17)
--- NOTE | 2020-03-20 11:26 | ED ---
Abdominal Pain HPI - General Chief Complaint: Abdominal Pain Stated Complaint: Abd Pain Time Seen by Provider: 03/20/20 11:06 Source: patient Mode of arrival: ambulatory Limitations: no limitations - History of Present Illness Initial Comments: Patient is a 44-year-old male presenting to emergency Department with complaints of severe lower abdominal pain of an increasing over the past 2 days. Patient does have a history of diverticulitis and kidney stones. He states he was treated for diverticulitis last week, currently on Augmentin x 7 days, but feels like his abdominal pain is getting worse. He's been having some nausea, he stated he had a fever yesterday. He denies any chest pain, shortness of breath. He describes his pain all the lower abdomen, very sharp and consistent. He does admit to loose stools. He denies any urinary complaints. He has no further complaints at this time. Upon arrival to the ER, he is slightly tachycardia at 103, otherwise vitals are normal. - Related Data Previous Rx's Medication Instructions Recorded Acetaminophen-Codeine 300-30mg 1 tab PO Q6H PRN 3 Days #12 tablet 03/09/20 [Tylenol w/codeine #3] Ketorolac [Toradol] 10 mg PO Q6HR #12 tab 03/09/20 Ondansetron Odt [Zofran Odt] 4 mg PO Q8HR PRN #12 tab 03/09/20 Tamsulosin [Flomax] 0.4 mg PO DAILY #7 cap 03/09/20 Amoxicillin/Potassium Clav 1 tab PO Q12HR #20 tab 03/14/20 [Augmentin 875-125 Tablet] Allergies Allergy/AdvReac Type Severity Reaction Status Date / Time venom-honey bee Allergy Unknown Anaphylaxis Verified 03/20/20 10:40 [bee venom (honey bee)] sertraline HCl [From Zoloft] AdvReac Unknown "MAKES ME Verified 03/20/20 10:40 MEAN" PER PT Review of Systems ROS Statement: Those systems with pertinent positive or pertinent negative responses have been documented in the HPI. ROS Other: All systems not noted in ROS Statement are negative. Past Medical History Past Medical History: No Reported History Additional Past Medical History / Comment(s): Diverticulitis, kidney stones, ureter blockage, hx lt shoulder injury History of Any Multi-Drug Resistant Organisms: None Reported Past Surgical History: Appendectomy, Tonsillectomy Additional Past Surgical History / Comment(s): History of right nephrolithiasis with ureteral stricture status post multiple surgeries. Past Anesthesia/Blood Transfusion Reactions: No Reported Reaction Past Psychological History: Depression Smoking Status: Former smoker, Never smoker Past Alcohol Use History: None Reported Past Drug Use History: None Reported General Exam - General Exam Comments Initial Comments: GENERAL: Patient is well-developed and well-nourished. Patient is nontoxic and in mild distress. HEAD: Atraumatic, normocephalic. EYES: Pupils equal round and reactive to light, extraocular movements intact, sclera anicteric, conjunctiva are normal. Eyelids were unremarkable. ENT: TMs normal, nares patent, oropharynx clear without exudates. Moist mucous membranes. NECK: Normal range of motion, supple without lymphadenopathy or JVD. LUNGS: Unlabored respirations. Breath sounds clear to auscultation bilaterally and equal. No wheezes rales or rhonchi. HEART: Regular rate and rhythm without murmurs, rubs or gallops. ABDOMEN: Tenderness to palpation of the entire lower abdomen, positive guarding. Soft, normoactive bowel sounds. No masses appreciated. : Deferred MUSCULOSKELETAL: Normal extremities with adequate strength and normal range of motion, no pitting or edema. No clubbing or cyanosis. NEUROLOGICAL: Patient is alert and oriented x 3. Motor and sensory are also intact. Cranial nerves II through XII grossly intact. Symmetrical smile. Normal speech, normal gait. PSYCH: Normal mood, normal affect. SKIN: Warm, Dry, normal turgor, no rashes or lesions noted. Limitations: no limitations Course Vital Signs 03/20/20 10:37 Temperature 98.4 F Pulse Rate 103 H Respiratory 20 Rate Blood Pressure 154/108 O2 Sat by Pulse 98 Oximetry Medical Decision Making - Medical Decision Making Patient is a 44-year-old male here for lower abdominal pain worsening over the past 2 days. He is currently on Augmentin for diverticulitis. He states yesterday he developed a fever and he feels like the pain is getting worse. He denies any vomiting. The tachycardia upon arrival, afebrile. Labs show a leukocytosis of 14.0 which is increased from 6 days ago of 8.4. Lactic acid is normal at 1.1, no other acute abnormalities. I did do a CT of his abdomen secondary to a new increase in pain, CT shows new moderate to severe uncomplicat ed acute diverticulitis centered in the mid sigmoid colon in the midline of the upper to mid pelvis. Given that patient has failed outpatient treatment I did recommend admission for IV antibiotics and pain control. Patient is in agreement with this plan of care. Patient's pain has been controlled with Toradol and nausea with Zofran. Patient will be started on Flagyl and Rocephin. Patient was accepted by Dr. Millan. Case discussed with Dr. Jarrell. - Lab Data Result diagrams: 03/20/20 11:54 03/20/20 11:54 Lab Results 03/20/20 03/20/20 03/20/20 Range/Units 11:54 11:54 11:54 WBC 14.0 H (3.8-10.6) k/uL RBC 5.55 (4.30-5.90) m/uL Hgb 17.6 H (13.0-17.5) gm/dL Hct 48.3 (39.0-53.0) % MCV 87.0 (80.0-100.0) fL MCH 31.7 (25.0-35.0) pg MCHC 36.4 (31.0-37.0) g/dL RDW 12.8 (11.5-15.5) % Plt Count 234 (150-450) k/uL MPV 7.1 Neutrophils % 79 % Lymphocytes % 12 % Monocytes % 5 % Eosinophils % 3 % Basophils % 0 % Neutrophils # 11.1 H (1.3-7.7) k/uL Lymphocytes # 1.7 (1.0-4.8) k/uL Monocytes # 0.7 (0-1.0) k/uL Eosinophils # 0.4 (0-0.7) k/uL Basophils # 0.1 (0-0.2) k/uL PT (9.0-12.0) sec INR (<1.2) APTT (22.0-30.0) sec Sodium 138 (137-145) mmol/L Potassium 4.2 (3.5-5.1) mmol/L Chloride 103 (98-107) mmol/L Carbon Dioxide 27 (22-30) mmol/L Anion Gap 8 mmol/L BUN 11 (9-20) mg/dL Creatinine 1.09 (0.66-1.25) mg/dL Est GFR (CKD-EPI)AfAm >90 (>60 ml/min/1.73 sqM) Est GFR (CKD-EPI)NonAf 83 (>60 ml/min/1.73 sqM) Glucose 106 H (74-99) mg/dL Plasma Lactic Acid [place] 1.1 (0.7-2.0) mmol/L Calcium 9.4 (8.4-10.2) mg/dL Total Bilirubin 1.1 (0.2-1.3) mg/dL AST 24 (17-59) U/L ALT 30 (4-49) U/L Alkaline Phosphatase 87 (38-126) U/L Total Protein 7.6 (6.3-8.2) g/dL Albumin 4.4 (3.5-5.0) g/dL Amylase 38 (30-110) U/L Lipase 92 (23-300) U/L 11/26/20 Range/Units 11:54 WBC (3.8-10.6) k/uL RBC (4.30-5.90) m/uL Hgb (13.0-17.5) gm/dL Hct (39.0-53.0) % MCV (80.0-100.0) fL MCH (25.0-35.0) pg MCHC (31.0-37.0) g/dL RDW (11.5-15.5) % Plt Count (150-450) k/uL MPV Neutrophils % % Lymphocytes % % Monocytes % % Eosinophils % % Basophils % % Neutrophils # (1.3-7.7) k/uL Lymphocytes # (1.0-4.8) k/uL Monocytes # (0-1.0) k/uL Eosinophils # (0-0.7) k/uL Basophils # (0-0.2) k/uL PT 10.9 (9.0-12.0) sec INR 1.1 (<1.2) APTT 24.0 (22.0-30.0) sec Sodium (137-145) mmol/L Potassium (3.5-5.1) mmol/L Chloride (98-107) mmol/L Carbon Dioxide (22-30) mmol/L Anion Gap mmol/L BUN (9-20) mg/dL Creatinine (0.66-1.25) mg/dL Est GFR (CKD-EPI)AfAm (>60 ml/min/1.73 sqM) Est GFR (CKD-EPI)NonAf (>60 ml/min/1.73 sqM) Glucose (74-99) mg/dL Plasma Lactic Acid [place] (0.7-2.0) mmol/L Calcium (8.4-10.2) mg/dL Total Bilirubin (0.2-1.3) mg/dL AST (17-59) U/L ALT (4-49) U/L Alkaline Phosphatase (38-126) U/L Total Protein (6.3-8.2) g/dL Albumin (3.5-5.0) g/dL Amylase (30-110) U/L Lipase (23-300) U/L Disposition Clinical Impression: Diverticulitis, Failure of outpatient treatment, Abdominal pain, Leukocytosis Disposition: ADMITTED IP TO THIS [facility] Condition: Stable Decision Date: 03/20/20 Decision Time: 13:33
[2020-03-20 12:20] LABS: Basophils # (A) 0.1 k/uL (0-0.2); Basophils % (A) 0 %; Eosinophils # (A) 0.4 k/uL (0-0.7); Eosinophils % (A) 3 %; HCT 48.3 % (39.0-53.0); HGB 17.6 gm/dL (13.0-17.5); Lymphocytes # (A) 1.7 k/uL (1.0-4.8); Lymphocytes % (A) 12 %; MCH 31.7 pg (25.0-35.0); MCHC 36.4 g/dL (31.0-37.0); Mean Platelet Volume 7.1; Monocytes # (A) 0.7 k/uL (0-1.0); Monocytes % (A) 5 %; Neutrophils # (A) 11.1 k/uL (1.3-7.7); Neutrophils % (A) 79 %; Platelet Count 234 k/uL (150-450); RBC 5.55 m/uL (4.30-5.90); RDW 12.8 % (11.5-15.5)
[2020-03-20 12:30] LABS: ALT 30 U/L (4-49); AST 24 U/L (17-59); African American GFR (CKD) >90 (>60 ml/min/1.73 sqM); Albumin 4.4 g/dL (3.5-5.0); Alkaline Phosphatase 87 U/L (38-126); Amylase 38 U/L (30-110); Anion Gap 8 mmol/L; Blood Urea Nitrogen 11 mg/dL (9-20); Calcium 9.4 mg/dL (8.4-10.2); Carbon Dioxide 27 mmol/L (22-30); Chloride 103 mmol/L (98-107); Glucose 106 mg/dL (74-99); Lipase 92 U/L (23-300); Non-African American GFR(CKD) 83 (>60 ml/min/1.73 sqM); Potassium 4.2 mmol/L (3.5-5.1); Sodium 138 mmol/L (137-145); Total Bilirubin 1.1 mg/dL (0.2-1.3); Total Protein 7.6 g/dL (6.3-8.2)
[2020-03-20 12:40] LABS: INR 1.1 (<1.2); Prothrombin Time 10.9 sec (9.0-12.0)
--- NOTE | 2020-03-20 12:50 | CT ---
EXAMINATION TYPE: CT abdomen pelvis w con DATE OF EXAM: 03/20/2020 COMPARISON: CT abdomen and pelvis 11 days ago. HISTORY: Abd pain CT DLP: 2019.7 mGycm, Automated Exposure Control for Dose Reduction was Utilized. CONTRAST: CT scan of the abdomen and pelvis is performed without oral but with IV Contrast, patient injected wi th 100 mL of Isovue 300. FINDINGS: LUNG BASES: No significant abnormality is appreciated. LIVER/GB: Liver remains low density relative to the spleen consistent with diffuse fatty infiltration . PANCREAS: No significant abnormality is seen. SPLEEN: No significant abnormality is seen. ADRENALS: No significant abnormality is seen. KIDNEYS: Symmetric cortical medullary uptake and excretion without concerning mass or hydronephrosis bilaterally. Stable 2 mm nonobstructing calculus left kidney upper to midpole level coronal image 78. BOWEL: Slightly suboptimal evaluation of bowel without enteric contrast. No suspicious small or large bowel dilatation. Some fluid in the right and transverse colon with air-fluid level could reflect pr oduct of colitis and/or diarrhea. Diverticula in the left and sigmoid colon Are redemonstrated. New m oderate to severe ill-defined fluid and fat stranding in the mid to distal sigmoid colon with new mod erate to severe wall thickening in the anterior upper to mid pelvis. No free air. No well-formed flui d collection or abscess. PROSTATE/SEMINAL VESICLES: No gross abnormality seen. LYMPH NODES: No greater than 1cm abdominal or pelvic lymph nodes are appreciated. OSSEOUS STRUCTURES: Mild facet arthropathy lower lumbar spine. OTHER: No significant additional abnormality is seen. IMPRESSION: New moderate to severe uncomplicated acute diverticulitis centered in the mid sigmoid col on in the midline of the upper to mid pelvis.
[2020-03-20] MEDS ORDERED: NALOXONE 0.4 MG/ML 1 ML VIAL IV PRN (13:30)
[2020-03-20] MEDS ORDERED: metroNIDAZOLE-NS PMX 500 MG in SALINE 1 100ML.BAG IVPB STA (13:31)
[2020-03-20] MEDS: SODIUM CHLORIDE 0.9% 1,000 ML IV SCH (14:12)
[2020-03-20] MEDS: MORPHINE SULFATE 4 MG/ML SYRINGE IV PRN ×2 (15:38→19:22)
[2020-03-20] MEDS ORDERED: ACETAMINOPHEN TAB 325 MG TAB PO PRN (17:05)
--- NOTE | 2020-03-20 17:08 | P.HPIM ---
History of Present Illness H&P Date: 03/20/20 Chief Complaint: abdominal pain Patient is a 44 yo male with a hx of diverticulitis with perforation 2005 that did not require surgery, gout, and multiple nephrolithiasis who presented to the emergency department with complaints of worsening abdominal pain. He had been diagnosed with diverticulitis approximately one week ago on an ED visit was started on Augmentin. In the ER he underwent an extensive evaluation. Initial vital signs showed tachycardia with a pulse of 103. Laboratory analysis showed white blood cell count of 14 but was otherwise unremarkable. CT abdomen and pelvis showed new moderate to severe uncomplicated acute diverticulitis centered in the mid right colon in the midline of the anterior pelvis. He was given a dose of Toradol, Rocephin, and Flagyl in the emergency department. Arrangements were made for admission. Patient seen and examined at bedside in the emergency department. Here, the following: Diagnosed with diverticulitis 1 week ago and started on oral antibiotics but not getting any better. Has had episodes twice yearly for the last 5 year. Also frequent kidney stones every 6 weeks. Last time hospitalized was 2005 with a perforated diverticuli they had wanted to preform surgery at that point in time but he refused. 10 days ago he was seen in the ER and had nausea, vomiting, diarrhea, and abdominal pain. He was diagnosed with diverticulitis and started on Augmentin. Inintally he did not eat anything for 5 days, then clear liquids for 2 days and felt good so increased diet for 2 days and pain returned. Pain is all the way across lower abdomen. Waxes and wanes in intensity. Worse with eating. + Diarrhea without blood, + N/V (last time was early this AM) No fevers Has seen Jo through Dr. Garcia office about 2 months ago. Has not seen a surgeon recently. Last Colonoscopy in 2005. Review of Systems Pertinent positives and negatives as discussed in HPI, a complete review of systems was performed and all other systems are negative. Past Medical History Additional Past Medical History / Comment(s): Diverticulitis, kidney stones, ureter blockage, hx lt shoulder injury History of Any Multi-Drug Resistant Organisms: None Reported Past Surgical History: Appendectomy, Tonsillectomy Additional Past Surgical History / Comment(s): History of right nephrolithiasis with ureteral stricture status post multiple surgeries. 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 - Past Family History Father Family Medical History: CVA/TIA Additional Family Medical History / Comment(s): from CVA Mother Family Medical History: Diabetes Mellitus Medications and Allergies Home Medications Medication Instructions Recorded Confirmed Type No Known Home Medications 03/20/20 03/20/20 History Allergies Allergy/AdvReac Type Severity Reaction Status Date / Time venom-honey bee Allergy Unknown Anaphylaxis Verified 03/20/20 16:05 [bee venom (honey bee)] sertraline HCl [From Zoloft] AdvReac Unknown "MAKES ME Verified 03/20/20 16:05 MEAN" PER PT Physical Exam Osteopathic Statement: *. No significant issues noted on an osteopathic structural exam other than those noted in the History and Physical/Consult. Vitals: Vital Signs Temp Pulse Resp BP Pulse Ox 03/20/20 10:37 98.4 F 103 H 20 154/108 98 Intake and Output 03/19/20 03/20/20 03/20/20 22:59 06:59 14:59 Other: Weight 117.934 kg General: ill appearing, mild distress, appears older than stated age Derm: warm, dry Head: atraumatic, normocephalic, symmetric Eyes: EOMI, no lid lag, anicteric sclera, pupils equal round reactive to light ENT: Nose and ears atraumatic, no thrush, no pharyngeal erythema Neck: No thyromegaly, no cervical lymphadenopathy, trachea midline, supple Mouth: no lip lesion, mucus membranes moist Cardiovascular: S1S2 reg, no murmur, positive posterior tibial pulse bilateral, no edema, capillary refill less than 2 seconds Lungs: clear to auscultation bilateral, no ronchi, no rales, no wheeze, no accessory muscle use Abdominal: soft, + tender to palpation LLQ and mild in RLQ< worse with lifting had away, + pain to heel tap on left, no guarding, no appreciable organomegaly, normal bowel sounds Ext: no gross muscle atrophy, muscle strength muscle strength 5 out of 5 in all 4 extremities, no contractures Neuro: CN II-XI grossly intact, light touch intact all 4 extremities, finger to nose within normal limits, Psych: Alert, oriented, appropriate affect Results CBC & Chem 7: 03/20/20 11:54 03/20/20 11:54 Labs: Abnormal Lab Results - Last 24 Hours (Table) 03/20/20 03/20/20 Range/Units 11:54 11:54 WBC 14.0 H (3.8-10.6) k/uL Hgb 17.6 H (13.0-17.5) gm/dL Neutrophils # 11.1 H (1.3-7.7) k/uL Glucose 106 H (74-99) mg/dL CT scan - abdomen: report reviewed CT scan - pelvis: report reviewed Thrombosis Risk Factor Assmnt - DVT/VTE Prophylaxis DVT/VTE Prophylaxis: Low risk, early ambulation encouraged Assessment and Plan Assessment: Acute sigmoid diverticulitis with sepsis, failed outpatient treatment + Perotineal signs - rocephin and flagyl - NPO with minimal ice chips - Pain control - antiemetics - IVF - Consult Dr. Piyush Antonio with DM 38.4 - structured outpatient weight loss Chronic: Nephrolithiasis Gout The patient is admitted with an anticipated greater than 2 midnight stay for evaluation of diverticulitis with sepsis. Surrogate decision-maker: Girlfriend Loree DVT prophylaxis: SCDs Discussed with: patient, ED physician, nursing Anticipated discharge date: 3-[address]: home A total of 65 minutes was spent on the care of this complex patient more than 50% of the time was spent in counseling and care coordination.
[2020-03-20] MEDS: metroNIDAZOLE-NS PMX 500 MG in SALINE 1 100ML.BAG IVPB SCH (19:54)
[2020-03-20 20:13] LABS: Appearance,Urine Clear (Clear); Bilirubin,Urine Negative (Negative); Blood,Urine Negative (Negative); Color,Urine Yellow; Glucose,Urine (UA) Negative (Negative); Ketones,Urine 2+ (Negative); Leukocyte Esterase,Urine Negative (Negative); Nitrite,Urine Negative (Negative); PH, Urine 6.5 (5.0-8.0); Protein,Urine Trace (Negative); Urobilinogen,Urine <2.0 mg/dL (<2.0)
[2020-03-20 20:26] LABS: Specific Gravity,Urine >1.050 (1.001-1.035)
[2020-03-21] MEDS: metroNIDAZOLE-NS PMX 500 MG in SALINE 1 100ML.BAG IVPB SCH ×4 (03:05→21:09)
[2020-03-21] MEDS: MORPHINE SULFATE 4 MG/ML SYRINGE IV PRN ×2 (03:06→07:16)
[2020-03-21] MEDS: SODIUM CHLORIDE 0.9% 1,000 ML IV SCH ×2 (05:21→16:28)
[2020-03-21 06:17] LABS: HCT 42.6 % (39.0-53.0); MCH 31.1 pg (25.0-35.0); MCHC 35.3 g/dL (31.0-37.0); MCV 88.2 fL (80.0-100.0); Mean Platelet Volume 7.3; Platelet Count 188 k/uL (150-450); RBC 4.83 m/uL (4.30-5.90); RDW 12.8 % (11.5-15.5)
[2020-03-21] MEDS ORDERED: HYDROmorphone 1 MG/ML 1 ML SYRINGE IVP PRN (08:54)
[2020-03-21 09:09] LABS: African American GFR (CKD) 95.5 (60.0-200.0); Anion Gap 4.2 mmol/L (4.00-12.00); BUN/Creat Ratio 9.09 Ratio (12.00-20.00); Calcium 8.8 mg/dL (8.7-10.3); Carbon Dioxide 27.8 mmol/L (21.6-31.8); Magnesium 1.8 mg/dL (1.5-2.4); Non-African American GFR(CKD) 82.4 (60.0-200.0); Phosphorus 2.9 mg/dL (2.4-5.1); Potassium 3.9 mmol/L (3.5-5.5)
[2020-03-21] MEDS: KETOROLAC 15 MG/ML 1 ML VIAL IVP PRN ×2 (09:09→21:14)
--- NOTE | 2020-03-21 09:57 | P.GSCN ---
History of Present Illness Consult date: 03/21/20 History of present illness: 44-year-old male presents to the emergency department with complaints of significant abdominal pain. He last visited the emergency department approximately 1 week ago and was diagnosed with acute diverticulitis at that time. He was discharged on antibiotics and states he was compliant with the antibiotics. He also did adjust his diet to mostly liquids over the last week. He states that the pain began worsening in intensity and that brought him back to the emergency department. On workup, he was found to have worsening of his diverticulitis case and was admitted. The CT does not reveal any perforation or abscess. He is started on IV antibiotics of Rocephin and Flagyl. He was offered clear liquid diet and states he had significant amount of diarrhea after intake. Since that time, he states he has not had any other intake. He states that he has had multiple episodes of diverticulitis in the past and believes that he did have a perforation at one point that was treated nonoperatively based on the patient's decision not to have surgical intervention. Currently, he states that he continues to have pain in bilateral lower quadrant. He denies any significant nausea or vomiting. Denies any fevers, chills, chest pain or shortness of breath. Review of Systems All systems: negative Past Medical History Past Medical History: Asthma, Renal Disease Additional Past Medical History / Comment(s): Diverticulitis, kidney stones, ureter blockage, hx lt shoulder injury History of Any Multi-Drug Resistant Organisms: None Reported Past Surgical History: Appendectomy, Tonsillectomy Additional Past Surgical History / Comment(s): History of right nephrolithiasis with ureteral stricture status post multiple surgeries. Left thumb surgery Past Anesthesia/Blood Transfusion Reactions: No Reported Reaction Past Psychological History: Depression Smoking Status: Former smoker, Never smoker Past Alcohol Use History: None Reported Past Drug Use History: None Reported - Past Family History Father Family Medical History: CVA/TIA Additional Family Medical History / Comment(s): from CVA Mother Family Medical History: Diabetes Mellitus Medications and Allergies Home Medications Medication Instructions Recorded Confirmed Type No Known Home Medications 03/20/20 03/20/20 History Allergies Allergy/AdvReac Type Severity Reaction Status Date / Time venom-honey bee Allergy Unknown Anaphylaxis Verified 03/20/20 16:05 [bee venom (honey bee)] sertraline HCl [From Zoloft] AdvReac Unknown "MAKES ME Verified 03/20/20 16:05 MEAN" PER PT Surgical - Exam Osteopathic Statement: *. No significant issues noted on an osteopathic structural exam other than those noted in the History and Physical/Consult. Vital Signs Temp Pulse Resp BP Pulse Ox 98.4 F 103 H 20 154/108 98 03/20/20 10:37 03/20/20 10:37 03/20/20 10:37 03/20/20 10:37 03/20/20 10:37 - General well developed, well nourished - ENT no hearing loss - Neck trachea midline - Respiratory normal respiratory effort - Abdomen Soft, tender to palpation in bilateral lower quadrants, nondistended, no guarding - Neurologic normal coordination, normal sensation - Psychiatric oriented to time, oriented to person, oriented to place Results - Labs 03/21/20 05:54 03/21/20 05:54 Abnormal Lab Results - Last 24 Hours (Table) 03/20/20 03/20/20 03/20/20 Range/Units 11:54 11:54 19:50 WBC 14.0 H (3.8-10.6) k/uL Hgb 17.6 H (13.0-17.5) gm/dL Neutrophils # 11.1 H (1.3-7.7) k/uL BUN/Creatinine Ratio (12.00-20.00) Ratio Glucose 106 H (74-99) mg/dL Ur Specific [place] >1.050 H (1.001-1.035) Urine Protein Trace H (Negative) Urine Ketones 2+ H (Negative) 03/21/20 Range/Units 05:54 WBC (3.8-10.6) k/uL Hgb (13.0-17.5) gm/dL Neutrophils # (1.3-7.7) k/uL BUN/Creatinine Ratio 9.09 L (12.00-20.00) Ratio Glucose (74-99) mg/dL Ur Specific [place] (1.001-1.035) Urine Protein (Negative) Urine Ketones (Negative) Diabetes panel 03/20/20 03/21/20 Range/Units 11:54 05:54 Sodium 138 140 (137-145) mmol/L Potassium 4.2 3.9 (3.5-5.1) mmol/L Chloride 103 108 (98-107) mmol/L Carbon Dioxide 27 27.8 (22-30) mmol/L BUN 11 10.0 (9-20) mg/dL Creatinine 1.09 1.1 (0.66-1.25) mg/dL Glucose 106 H 98 (74-99) mg/dL Calcium 9.4 8.8 (8.4-10.2) mg/dL AST 24 (17-59) U/L ALT 30 (4-49) U/L Alkaline Phosphatase 87 (38-126) U/L Total Protein 7.6 (6.3-8.2) g/dL Albumin 4.4 (3.5-5.0) g/dL Calcium panel 03/20/20 03/21/20 Range/Units 11:54 05:54 Calcium 9.4 8.8 (8.4-10.2) mg/dL Phosphorus 2.9 (2.4-5.1) mg/dL Albumin 4.4 (3.5-5.0) g/dL Pituitary panel 03/20/20 03/21/20 Range/Units 11:54 05:54 Sodium 138 140 (137-145) mmol/L Potassium 4.2 3.9 (3.5-5.1) mmol/L Chloride 103 108 (98-107) mmol/L Carbon Dioxide 27 27.8 (22-30) mmol/L BUN 11 10.0 (9-20) mg/dL Creatinine 1.09 1.1 (0.66-1.25) mg/dL Glucose 106 H 98 (74-99) mg/dL Calcium 9.4 8.8 (8.4-10.2) mg/dL Adrenal panel 03/20/20 03/21/20 Range/Units 11:54 05:54 Sodium 138 140 (137-145) mmol/L Potassium 4.2 3.9 (3.5-5.1) mmol/L Chloride 103 108 (98-107) mmol/L Carbon Dioxide 27 27.8 (22-30) mmol/L BUN 11 10.0 (9-20) mg/dL Creatinine 1.09 1.1 (0.66-1.25) mg/dL Glucose 106 H 98 (74-99) mg/dL Calcium 9.4 8.8 (8.4-10.2) mg/dL Total Bilirubin 1.1 (0.2-1.3) mg/dL AST 24 (17-59) U/L ALT 30 (4-49) U/L Alkaline Phosphatase 87 (38-126) U/L Total Protein 7.6 (6.3-8.2) g/dL Albumin 4.4 (3.5-5.0) g/dL Assessment and Plan Plan: 44-year-old male with diverticulitis, uncomplicated - I did discuss the case in depth with the patient and the patient's admitting team. At this point, we will continue with IV antibiotics and I did recommend nothing by mouth status at this time. He states that his last colonoscopy was over 7 years ago and he is aware that he will need a colonoscopy 6-8 weeks after recovery from this diverticulitis episode. Based on the patient's physical exam, we will closely monitor for any required surgical intervention. At this point, it does appear that his diverticulitis episode is uncomplicated, however due to the severe wall thickening and multiple diverticulitis episodes in the past, the patient is aware that he is at high risk of perforation or abscess formation. We will continue to closely monitor and continued right surgical recommendations throughout the patient's admission.
--- NOTE | 2020-03-21 16:54 | P.PN ---
Subjective Progress Note Date: 03/21/20 (delayed charting seen at 0830) Principal diagnosis: abdominal pain Patient is a 44 yo male with a hx of diverticulitis with perforation 2005 that did not require surgery, gout, and multiple nephrolithiasis who presented to the emergency department with complaints of worsening abdominal pain. He had been diagnosed with diverticulitis approximately one week ago on an ED visit was started on Augmentin. In the ER he underwent an extensive evaluation. Initial vital signs showed tachycardia with a pulse of 103. Laboratory analysis showed white blood cell count of 14 but was otherwise unremarkable. CT abdomen and pelvis showed new moderate to severe uncomplicated acute diverticulitis centered in the mid right colon in the midline of the anterior pelvis. He was given a d ose of Toradol, Rocephin, and Flagyl in the emergency department. Arrangements were made for admission. On the morning after admission his white blood cell count normalized however he continued to have significant abdominal pain. He had tried some clear liquid during the middle the night and had profuse diarrhea. Patient seen and examined at bedside. He continues to have suprapubic pain with radiation to the left side. He denies any current nausea or vomiting. He did try clear liquids last night as there was some confusion with his diet order and again had profuse diarrhea. He denies any chest pain, shortness of breath. He reports the morphine is not helping the pain and we will try alternating Toradol and Dilaudid. General: Ill appearing, mild distress secondary to pain, appears at stated age Derm: warm, dry Head: atraumatic, normocephalic, symmetric Eyes: EOMI, no lid lag, anicteric sclera Mouth: no lip lesion, mucus membranes moist Cardiovascular: S1S2 reg, no murmur, positive posterior tibial pulse bilateral, Lungs: CTA bilateral, no rhonchi, no rales , no accessory muscle use Abdominal: soft, tender to palpation left lower quadrant, pain is worse with releases your hand versus pressing, he does have pain in his left lower quadrant with heel tap., no guarding, no appreciable organomegaly Ext: no gross muscle atrophy, no edema, no contractures Neuro: CN II-XI grossly intact, no focal neuro deficits Psych: Alert, oriented, appropriate affect Acute sigmoid diverticulitis with sepsis, failed outpatient treatment + Perotineal signs - rocephin and flagyl - NPO with minimal ice chips - Pain control - antiemetics - IVF - Surgery recs appreciated Obesity with BMI 38.4 - structured outpatient weight loss Chronic: Nephrolithiasis Gout DVT prophylaxis: SCDs Discussed with: patient, Dr. Pickett, nursing Anticipated discharge date: 3-[address]: home A total of 30 minutes was spent on the care of this complex patient more than 50% of the time was spent in counseling and care coordination. Objective - Vital Signs Vital signs: Vital Signs Temp 98.1 F 03/21/20 12:16 Pulse 72 03/21/20 12:16 Resp 18 03/21/20 12:16 BP 136/70 03/21/20 12:16 Pulse Ox 97 03/21/20 12:16 Intake & Output 03/20/20 03/21/20 03/21/20 18:59 06:59 18:59 Intake Total 100 Balance 100 Weight 117.934 kg Intake: Intake, IV Titration 100 Amount metroNIDAZOLE-NS PMX 500 100 mg In Saline 1 100ml.bag @ 100 mls/hr IVPB Q6H [facility] Rx#:[id number] Other: Voiding Method Toilet Toilet Toilet # Voids 1 1 - Labs CBC & Chem 7: 03/21/20 05:54 03/21/20 05:54 Labs: Abnormal Lab Results - Last 24 Hours (Table) 03/20/20 03/21/20 Range/Units 19:50 05:54 BUN/Creatinine Ratio 9.09 L (12.00-20.00) Ratio Ur Specific [place] >1.050 H (1.001-1.035) Urine Protein Trace H (Negative) Urine Ketones 2+ H (Negative)
[2020-03-22] MEDS: SODIUM CHLORIDE 0.9% 1,000 ML IV SCH ×4 (03:00→18:05)
[2020-03-22] MEDS: metroNIDAZOLE-NS PMX 500 MG in SALINE 1 100ML.BAG IVPB SCH ×4 (03:29→20:41)
[2020-03-22 09:29] LABS: HCT 42.9 % (39.0-53.0); HGB 15.5 gm/dL (13.0-17.5); MCH 31.8 pg (25.0-35.0); MCHC 36.1 g/dL (31.0-37.0); MCV 88.1 fL (80.0-100.0); Mean Platelet Volume 7.4; Platelet Count 200 k/uL (150-450); RBC 4.87 m/uL (4.30-5.90); RDW 12.7 % (11.5-15.5); WBC 7.5 k/uL (3.8-10.6)
[2020-03-22 13:39] LABS: African American GFR (CKD) 121.7 (60.0-200.0); BUN/Creat Ratio 11.11 Ratio (12.00-20.00); Calcium 8.9 mg/dL (8.7-10.3); Magnesium 1.8 mg/dL (1.5-2.4); Phosphorus 2.6 mg/dL (2.4-5.1); Potassium 4.2 mmol/L (3.5-5.5)
--- NOTE | 2020-03-22 13:53 | P.PN ---
Subjective Progress Note Date: 03/22/20 Patient seen and examined at bedside. States he is feeling much better today. Abdominal pain has improved. Denies nausea or vomiting. Denies fevers. Objective - Vital Signs Vital signs: Vital Signs Temp 97.7 F 03/22/20 05:20 Pulse 81 03/22/20 08:00 Resp 16 03/22/20 08:00 BP 129/78 03/22/20 05:20 Pulse Ox 99 03/22/20 05:20 Intake & Output 03/21/20 03/22/20 03/22/20 18:59 06:59 18:59 Intake Total 1400 Output Total 1 1 Balance -1 1400 -1 Intake: Intake, IV Titration 1300 Amount Sodium Chloride 0.9% 1, 1300 000 ml @ 130 mls/hr IV . Q7H42M [facility] Rx#:[id number] Oral 100 Output: Urine 1 1 Other: Voiding Method Toilet Toilet # Voids 1 - Constitutional General appearance: Present: cooperative, no acute distress - EENT Eyes: Present: PERRLA - Gastrointestinal Gastrointestinal Comment(s): Soft, some tenderness to palpation in the bilateral lower quadrants, much improved since yesterday, no rebound, no guarding - Psychiatric Psychiatric: Present: A&O x's 3 - Labs CBC & Chem 7: 03/22/20 07:27 03/22/20 07:27 Labs: Abnormal Lab Results - Last 24 Hours (Table) 03/22/20 Range/Units 07:27 BUN/Creatinine Ratio 11.11 L (12.00-20.00) Ratio Assessment and Plan Plan: 44-year-old male with uncomplicated diverticulitis. His pain is improving as of today. He was advanced to clear liquid diet and appears to be tolerating this well. I would recommend slow advancement of diet beginning tomorrow while continuing clear liquids today. Continue IV antibiotics. Patient will require colonoscopy in 6-8 weeks and ca follow-up with me as an outpatient for scope and to discuss any future surgical planning.
--- NOTE | 2020-03-22 17:15 | P.PN ---
Subjective Progress Note Date: 03/22/20 (delayed charting seen at 1005) Principal diagnosis: abdominal pain Patient is a 44 yo male with a hx of diverticulitis with perforation 2005 that did not require surgery, gout, and multiple nephrolithiasis who presented to the emergency department with complaints of worsening abdominal pain. He had been diagnosed with diverticulitis approximately one week ago on an ED visit was started on Augmentin. In the ER he underwent an extensive evaluation. Initial vital signs showed tachycardia with a pulse of 103. Laboratory analysis showed white blood cell count of 14 but was otherwise unremarkable. CT abdomen and pelvis showed new moderate to severe uncomplicated acute diverticulitis centered in the mid right colon in the midline of the anterior pelvis. He was given a d ose of Toradol, Rocephin, and Flagyl in the emergency department. Arrangements were made for admission. On the morning after admission his white blood cell count normalized however he continued to have significant abdominal pain. He had tried some clear liquid during the middle the night and had profuse diarrhea. Pain significantly improved from the morning of 03/22 and he was advanced to clear liquid diet. Patient seen and examined at bedside. He reports that pain is much better and he did not require very much pain medication throughout the night. No nausea or vomiting. Continues to have some liquid stools. However feeling greatly improved from yesterday. General: Nontoxic, no acute distress, appears at stated age Derm: warm, dry Head: atraumatic, normocephalic, symmetric Eyes: EOMI, no lid lag, anicteric sclera Mouth: no lip lesion, mucus membranes moist Cardiovascular: S1S2 reg, no murmur, positive posterior tibial pulse bilateral, Lungs: CTA bilateral, no rhonchi, no rales , no accessory muscle use Abdominal: soft, tender to palpation left lower quadrant, negative heel tap today, no rebound, no guarding, no appreciable organomegaly Ext: no gross muscle atrophy, no edema, no contractures Neuro: CN II-XI grossly intact, no focal neuro deficits Psych: Alert, oriented, appropriate affect Acute sigmoid diverticulitis with sepsis, failed outpatient treatment -Peritoneal signs and - rocephin and flagyl - Advance to clear liquids - Pain control - antiemetics - IVF - Surgery recs appreciated Obesity with BMI 38.4 - structured outpatient weight loss Chronic: Nephrolithiasis Gout DVT prophylaxis: SCDs Discussed with: patient, nursing Anticipated discharge date: 2-[address]: home A total of 20 minutes was spent on the care of this complex patient more than 50% of the time was spent in counseling and care coordination. Objective - Vital Signs Vital signs: Vital Signs Temp 98.3 F 03/22/20 13:00 Pulse 78 03/22/20 13:00 Resp 16 03/22/20 13:00 BP 150/100 03/22/20 13:30 Pulse Ox 98 03/22/20 13:00 Intake & Output 03/21/20 03/22/20 03/22/20 18:59 06:59 18:59 Intake Total 1400 Output Total 1 1 Balance -1 1400 -1 Intake: Intake, IV Titration 1300 Amount Sodium Chloride 0.9% 1, 1300 000 ml @ 130 mls/hr IV . Q7H42M [facility] Rx#:[id number] Oral 100 Output: Urine 1 1 Other: Voiding Method Toilet Toilet # Voids 1 - Labs CBC & Chem 7: 03/22/20 07:27 03/22/20 07:27 Labs: Abnormal Lab Results - Last 24 Hours (Table) 03/22/20 Range/Units 07:27 BUN/Creatinine Ratio 11.11 L (12.00-20.00) Ratio
[2020-03-23] MEDS: metroNIDAZOLE-NS PMX 500 MG in SALINE 1 100ML.BAG IVPB SCH ×4 (02:16→20:27)
[2020-03-23] MEDS: SODIUM CHLORIDE 0.9% 1,000 ML IV SCH ×3 (02:17→21:38)
--- NOTE | 2020-03-23 10:29 | P.PN ---
Subjective Progress Note Date: 03/23/20 Patient seen and examined at bedside. No acute events. States abdominal pain similar to yesterday but much improved since his admission. Denies nausea or vomiting. States he does not have a significant appetite. Tolerating clear liquid diet. Objective - Vital Signs Vital signs: Vital Signs Temp 98.0 F 03/23/20 08:00 Pulse 66 03/23/20 08:00 Resp 16 03/23/20 08:00 BP 135/79 03/23/20 08:00 Pulse Ox 99 03/23/20 08:00 Intake & Output 03/22/20 03/23/20 03/23/20 18:59 06:59 18:59 Output Total 1 Balance -1 Output: Urine 1 Other: Voiding Method Toilet # Voids 1 2 # Bowel Movements 1 2 - Constitutional General appearance: Present: cooperative, no acute distress - Gastrointestinal Gastrointestinal Comment(s): Soft, improved tenderness, nondistended, no rebound, no guarding - Labs CBC & Chem 7: 03/22/20 07:27 03/22/20 07:27 Labs: Abnormal Lab Results - Last 24 Hours (Table) 03/22/20 Range/Units 07:27 BUN/Creatinine Ratio 11.11 L (12.00-20.00) Ratio Assessment and Plan Plan: 44-year-old male with uncomplicated diverticulitis. His pain is improved since admission. He was advanced to clear liquid diet and appears to be tolerating this well. Based on the patient's current exam, I would recommend continued clear liquid diet or full liquid diet. I did stress the importance of slow advancement of diet due to the severe diverticulitis attack.. Continue IV antibiotics and will require by mouth antibiotics and discharged. Patient will require colonoscopy in 6-8 weeks and can follow-up with me as an outpatient for scope and to discuss any future surgical planning.
[2020-03-23] MEDS: ONDANSETRON 4 MG/2 ML VIAL IVP PRN (14:19)
--- NOTE | 2020-03-23 16:59 | P.PN ---
Subjective Progress Note Date: 03/23/20 (delayed charting seen at 1030) Principal diagnosis: abdominal pain Patient is a 44 yo male with a hx of diverticulitis with perforation 2005 that did not require surgery, gout, and multiple nephrolithiasis who presented to the emergency department with complaints of worsening abdominal pain. He had been diagnosed with diverticulitis approximately one week ago on an ED visit was started on Augmentin. In the ER he underwent an extensive evaluation. Initial vital signs showed tachycardia with a pulse of 103. Laboratory analysis showed white blood cell count of 14 but was otherwise unremarkable. CT abdomen and pelvis showed new moderate to severe uncomplicated acute diverticulitis centered in the mid right colon in the midline of the anterior pelvis. He was given a d ose of Toradol, Rocephin, and Flagyl in the emergency department. Arrangements were made for admission. On the morning after admission his white blood cell count normalized however he continued to have significant abdominal pain. He had tried some clear liquid during the middle the night and had profuse diarrhea. Pain significantly improved from the morning of 03/22 and he was advanced to clear liquid diet. He continued to have diarrhea. Patient seen and examined at bedside. He is still having diarrhea, abdominal pain is much better, but he tried mild based products and had increased pain last night. General: Nontoxic, no acute distress, appears at stated age Derm: warm, dry Head: atraumatic, normocephalic, symmetric Eyes: EOMI, no lid lag, anicteric sclera Mouth: no lip lesion, mucus membranes moist Cardiovascular: S1S2 reg, no murmur, positive posterior tibial pulse bilateral, Lungs: CTA bilateral, no rhonchi, no rales , no accessory muscle use Abdominal: soft, + tender to palpation left lower quadrant, negative heel tap today, no rebound, no guarding, no appreciable organomegaly Ext: no gross muscle atrophy, no edema, no contractures Neuro: CN II-XI grossly intact, no focal neuro deficits Psych: Alert, oriented, appropriate affect Acute sigmoid diverticulitis with sepsis, failed outpatient treatment -Peritoneal signs resolved - rocephin and flagyl - Continue clear liquids - Pain control - antiemetics - IVF - Surgery recs appreciated Obesity with BMI 38.4 - structured outpatient weight loss Chronic: Nephrolithiasis Gout DVT prophylaxis: SCDs Discussed with: patient, nursing Anticipated discharge date: in AM Anticipated discharge place: home A total of 20 minutes was spent on the care of this complex patient more than 50% of the time was spent in counseling and care coordination. Objective - Vital Signs Vital signs: Vital Signs Temp 98.2 F 03/23/20 13:01 Pulse 68 03/23/20 13:01 Resp 16 03/23/20 13:01 BP 160/98 03/23/20 13:01 Pulse Ox 97 03/23/20 13:01 Intake & Output 03/22/20 03/23/20 03/23/20 18:59 06:59 18:59 Intake Total 320 Output Total 1 Balance -1 320 Intake: Oral 320 Output: Urine 1 Other: Voiding Method Toilet Toilet # Voids 1 2 # Bowel Movements 1 2 - Labs CBC & Chem 7: 03/22/20 07:27 03/22/20 07:27
[2020-03-24] MEDS: metroNIDAZOLE-NS PMX 500 MG in SALINE 1 100ML.BAG IVPB SCH ×2 (03:12→09:19)
[2020-03-24] MEDS: SODIUM CHLORIDE 0.9% 1,000 ML IV SCH (05:39)
[2020-03-24 07:44] VITALS: BP 155/93; PULSE 79; RESP 18; TEMP 97.3
[2020-03-24] MEDS: ONDANSETRON 4 MG/2 ML VIAL IVP PRN (08:01)
[2020-03-24 08:11] LABS: African American GFR (CKD) >90 (>60 ml/min/1.73 sqM); Anion Gap 5 mmol/L; Blood Urea Nitrogen 7 mg/dL (9-20); Calcium 9.3 mg/dL (8.4-10.2); Carbon Dioxide 29 mmol/L (22-30); Chloride 105 mmol/L (98-107); Glucose 105 mg/dL (74-99); Magnesium 1.8 mg/dL (1.6-2.3); Non-African American GFR(CKD) 84 (>60 ml/min/1.73 sqM); Potassium 3.9 mmol/L (3.5-5.1); Sodium 139 mmol/L (137-145)
[2020-03-24 08:20] LABS: HCT 48.1 % (39.0-53.0); HGB 17.4 gm/dL (13.0-17.5); MCH 31.6 pg (25.0-35.0); MCHC 36.2 g/dL (31.0-37.0); MCV 87.3 fL (80.0-100.0); Platelet Count 287 k/uL (150-450); RBC 5.51 m/uL (4.30-5.90); RDW 12.8 % (11.5-15.5)
--- NOTE | 2020-03-24 17:32 | P.DS ---
Providers Date of admission: 03/20/20 13:55 Expected date of discharge: 03/24/20 Attending physician: Temo Millan MD Consults: 03/20/20 17:07 Consult Physician Routine Consulting Provider: Rosmery Pickett Consult Reason/Comments: acute diverticulitis with peritoneal signs Do you want consulting provider notified?: Yes Primary care physician: [facility] Hospital Course: Discharge Diagnosis: Acute sigmoid diverticulitis with sepsis, failed outpatient treatment Obesity with BMI 38.4 Nephrolithiasis Gout Hospital Course: Patient is a 44 yo male with a hx of diverticulitis with perforation 2005 that did not require surgery, gout, and multiple nephrolithiasis who presented to the emergency department with complaints of worsening abdominal pain. He had been diagnosed with diverticulitis approximately one week ago on an ED visit was started on Augmentin. In the ER he underwent an extensive evaluation. Initial vital signs showed tachycardia with a pulse of 103. Laboratory analysis showed white blood cell count of 14 but was otherwise unremarkable. CT abdomen and pelvis showed new moderate to severe uncomplicated acute diverticulitis centered in the mid right colon in the midline of the anterior pelvis. He was given a dose of Toradol, Rocephin, and Flagyl in the emergency department. Arrangements were made for admission. On the morning after admission his white blood cell count normalized however he continued to have significant abdominal pain. He had tried some clear liquid during the middle the night and had profuse diarrhea. Pain significantly improved from the morning of 03/22 and he was advanced to clear liquid diet. He continued to have diarrhea. This was improved by the morning of 03/24 and was determined stable for discharge home. He will continue on a clear liquid diet for 2 more days at his request 11 alcoholism filing to a diverticulitis diet. He will follow with Dr. Pickett and is interested in possible surgical options for his recurrent diverticulitis. He'll complete a course of 7 days of Flagyl and Levaquin. Patient seen and examined at bedside. Abdominal pain resolved, diarrhea better, feeling great! Vital signs reviewed and stable. General: non toxic, no distress, appears at stated age Derm: warm, dry Head: atraumatic, normocephalic, symmetric Eyes: EOMI, no lid lag, anicteric sclera Mouth: no lip lesion, mucus membranes moist Cardiovascular: S1S2 reg, no murmur, positive posterior tibial pulse bilateral, Lungs: CTA bilateral, no rhonchi, no rales , no accessory muscle use Abdominal: soft, nontender to palpation, no guarding, no appreciable organomegaly Ext: no gross muscle atrophy, no edema, no contractures Neuro: CN II-XI grossly intact, no focal neuro deficits Psych: Alert, oriented, appropriate affect A total of 35 minutes of time were spent preparing this complex discharge summary . Patient Condition at Discharge: Stable Plan - Discharge Summary Discharge Rx Participant: No New Discharge Prescriptions: New metroNIDAZOLE [Flagyl] 500 mg PO TID #21 tab Levofloxacin [Levaquin] 750 mg PO DAILY 7 Days #7 tab Ondansetron Odt [Zofran Odt] 4 mg PO Q8HR PRN #20 tab PRN Reason: Nausea Discharge Medication List Levofloxacin [Levaquin] 750 mg PO DAILY 7 Days #7 tab 03/24/20 [Rx] Ondansetron Odt [Zofran Odt] 4 mg PO Q8HR PRN #20 tab 03/24/20 [Rx] metroNIDAZOLE [Flagyl] 500 mg PO TID #21 tab 03/24/20 [Rx] Follow up Appointment(s)/Referral(s): Rosmery Pickett DO [Doctor of Osteopathic Medicine] - 2 Weeks [facility]inic [Primary Care Provider] - 1-2 days Patient Instructions/Handouts: Diverticulitis (DC), Clear Liquid Diet (DC), Diverticulitis Diet (DC), Full Liquid Diet (DC) Activity/Diet/Wound Care/Special Instructions: Activity: as tolerated Diet: Clear or full liquids for 5 days, do not skip the full liquid step prior to advancing to diverticulitis diet Special Instructions: outpatient colonoscopy-- Dr Pickett Discharge Disposition: HOME SELF-CARE
== END 2020-03-24 12:35 | disposition home or self-care (01) | DRG 872 ==
LOC: EC 10:26 → 6NMEDSUR 13:55 → 5NMEDONC 16:04
PROVIDERS: ADMIT Internal Medicine; ATTEND Internal Medicine
DX: A41.9 Sepsis, unspecified organism (principal); K57.32 Diverticulitis of large intestine without perforation or abscess without bleeding; E66.9 Obesity, unspecified; F32.9 Major depressive disorder, single episode, unspecified; J45.909 Unspecified asthma, uncomplicated; M10.9 Gout, unspecified; N20.0 Calculus of kidney; Z68.38 Body mass index [BMI] 38.0-38.9, adult; Z87.442 Personal history of urinary calculi; Z88.8 Allergy status to other drugs, medicaments and biological substances; Z87.19 Personal history of other diseases of the digestive system; Z91.030 Bee allergy status; Z90.49 Acquired absence of other specified parts of digestive tract; Z90.89 Acquired absence of other organs; Z82.3 Family history of stroke; Z83.3 Family history of diabetes mellitus
CPT/HCPCS: 36415; 74177; 80048; 80053; 81003; 82150; 83605; 83690; 83735; 84100; 85025; 85027; 85610; 85730; 87324; 96361; 96365; 96366; 96368; 96375; 99285

== ENCOUNTER 2020-07-17 14:32 | Emergency (ER) | payer OTHER ==
[2020-07-17 14:50] VITALS: RESP 18; TEMP 98.3
--- NOTE | 2020-07-17 14:52 | ED ---
General Adult HPI - General Source: patient, RN notes reviewed Mode of arrival: ambulatory Limitations: no limitations <Daquan Gottlieb - Last Filed: 07/17/20 14:51> <Abner Alston - Last Filed: 07/17/20 19:46> - General Stated complaint: Diverticulitis Time Seen by Provider: 07/17/20 14:47 - History of Present Illness Initial comments: This a 45-year-old male presents emergency Department chief complaint of abdominal pain, diverticulitis. Patient's had multiple recurrent issues with diverticulitis. Patient has seen Dr. Haji in the past and is scheduled for a bowel resection. Patient states she started with pain this morning denies any fevers chills vomiting or diarrhea. No dysuria. (Daquan Gottlieb) This is a 45-year-old male who presents emergency Department with a past medical history significant for diverticulitis and perforation. Patient comes in today because she's been experiencing some left-sided abdominal pain but earlier today when he was having a bowel movement he felt something pop he is worried that he might of a perforation again. Patient states he prefers to go home if there is no perforation or abscess. Patient denies any fever chills. Patient states his bowel movements have been hard and he wants some stool softener. Patient denies any other symptoms at this time. (Abner Alston) - Related Data Previous Rx's Medication Instructions Recorded Amoxicillin/Potassium Clav 1 each PO Q12HR #28 tab 07/17/20 [Augmentin 875-125 Tablet] Docusate [Colace] 100 mg PO BID #10 capsule 07/17/20 metroNIDAZOLE [Flagyl] 500 mg PO QID #10 tab 07/17/20 Allergies Allergy/AdvReac Type Severity Reaction Status Date / Time venom-honey bee Allergy Unknown Anaphylaxis Verified 07/17/20 18:36 [bee venom (honey bee)] sertraline HCl [From Zoloft] AdvReac Unknown "MAKES ME Verified 07/17/20 18:36 MEAN" PER PT Review of Systems ROS Other: All systems not noted in ROS Statement are negative. <Daquan Gottlieb - Last Filed: 07/17/20 14:51> ROS Other: All systems not noted in ROS Statement are negative. <Abner Alston - Last Filed: 07/17/20 19:46> ROS Statement: Those systems with pertinent positive or pertinent negative responses have been documented in the HPI. Past Medical History Past Medical History: Asthma, Renal Disease Additional Past Medical History / Comment(s): Diverticulitis, kidney stones, ureter blockage, hx lt shoulder injury History of Any Multi-Drug Resistant Organisms: None Reported Past Surgical History: Appendectomy, Tonsillectomy Additional Past Surgical History / Comment(s): History of right nephrolithiasis with ureteral stricture status post multiple surgeries. Left thumb surgery Past Anesthesia/Blood Transfusion Reactions: No Reported Reaction Past Psychological History: Depression Smoking Status: Former smoker Past Alcohol Use History: None Reported Past Drug Use History: None Reported - Past Family History Father Family Medical History: CVA/TIA Additional Family Medical History / Comment(s): from CVA Mother Family Medical History: Diabetes Mellitus <Daquan Gottlieb - Last Filed: 07/17/20 14:51> General Exam Limitations: no limitations <Daquan Gottlieb - Last Filed: 07/17/20 14:51> <Abner Alston - Last Filed: 07/17/20 19:46> - General Exam Comments Initial Comments: GENERAL: Patient is well-developed and well-nourished. Patient is nontoxic and well- hydrated and is in mild distress. ENT: Neck is soft and supple. No significant lymphadenopathy is noted. Oropharynx is clear. Moist mucous membranes. Neck has full range of motion without eliciting any pain. EYES: The sclera were anicteric and conjunctiva were pink and moist. Extraocular movements were intact and pupils were equal round and reactive to light. Eyelids were unremarkable. PULMONARY: Unlabored respirations. Good breath sounds bilaterally. No audible rales rhonchi or wheezing was noted. CARDIOVASCULAR: There is a regular rate and rhythm without any murmurs gallops or rubs. ABDOMEN: Patient has rebound tenderness in left lower quadrant. SKIN: Skin is clear with no lesions or rashes and otherwise unremarkable. NEUROLOGIC: Patient is alert and oriented x3. Cranial nerves II through XII are grossly intact. Motor and sensory are also intact. Normal speech, volume and content. Symmetrical smile. MUSCULOSKELETAL: Normal extremities with adequate strength and full range of motion. No lower extremity swelling or edema. No calf tenderness. LYMPHATICS: No significant lymphadenopathy is noted PSYCHIATRIC: Normal psychiatric evaluation. (Abner Alston) Course Vital Signs 07/17/20 07/17/20 07/17/20 14:48 17:42 19:35 Temperature 98.3 F Pulse Rate 90 82 73 Respiratory 18 18 18 Rate Blood Pressure 168/104 189/119 143/90 O2 Sat by Pulse 100 98 99 Oximetry Medical Decision Making - Lab Data Result diagrams: 07/17/20 18:28 07/17/20 18:28 <Abner Alston - Last Filed: 07/17/20 19:46> - Medical Decision Making CT of the abdomen and pelvis shows acute diverticulitis without complication. New. Patient received pain medication and nausea medication as well as antibiotics in the emergency department. (Abner Alston) - Lab Data Lab Results 07/17/20 07/17/20 07/17/20 Range/Units 15:52 15:52 15:52 WBC 12.0 H (3.8-10.6) k/uL RBC 5.47 (4.30-5.90) m/uL Hgb 16.6 (13.0-17.5) gm/dL Hct 47.3 (39.0-53.0) % MCV 86.4 (80.0-100.0) fL MCH 30.4 (25.0-35.0) pg MCHC 35.2 (31.0-37.0) g/dL RDW 14.0 (11.5-15.5) % Plt Count 210 (150-450) k/uL MPV 6.9 Neutrophils % 70 % Lymphocytes % 21 % Monocytes % 6 % Eosinophils % 2 % Basophils % 0 % Neutrophils # 8.4 H (1.3-7.7) k/uL Lymphocytes # 2.5 (1.0-4.8) k/uL Monocytes # 0.7 (0-1.0) k/uL Eosinophils # 0.2 (0-0.7) k/uL Basophils # 0.1 (0-0.2) k/uL Hyperchromasia Slight Sodium 136 L (137-145) mmol/L Potassium 3.8 (3.5-5.1) mmol/L Chloride 103 (98-107) mmol/L Carbon Dioxide 22 (22-30) mmol/L Anion Gap 11 mmol/L BUN 13 (9-20) mg/dL Creatinine 0.92 (0.66-1.25) mg/dL Est GFR (CKD-EPI)AfAm >90 (>60 ml/min/1.73 sqM) Est GFR (CKD-EPI)NonAf >90 (>60 ml/min/1.73 sqM) Glucose 95 (74-99) mg/dL Plasma Lactic Acid [place] 1.5 (0.7-2.0) mmol/L Calcium 9.5 (8.4-10.2) mg/dL Total Bilirubin 1.0 (0.2-1.3) mg/dL AST 30 (17-59) U/L ALT 33 (4-49) U/L Alkaline Phosphatase 90 (38-126) U/L Total Protein 7.8 (6.3-8.2) g/dL Albumin 4.7 (3.5-5.0) g/dL Amylase 50 (30-110) U/L Lipase 119 (23-300) U/L Urine Color Urine Appearance (Clear) Urine pH (5.0-8.0) Ur Specific [place] (1.001-1.035) Urine Protein (Negative) Urine Glucose (UA) (Negative) Urine Ketones (Negative) Urine Blood (Negative) Urine Nitrite (Negative) Urine Bilirubin (Negative) Urine Urobilinogen (<2.0) mg/dL Ur Leukocyte Esterase (Negative) 07/17/20 07/17/20 07/17/20 Range/Units 17:53 18:28 18:28 WBC 11.8 H (3.8-10.6) k/uL RBC 5.36 (4.30-5.90) m/uL Hgb 16.4 (13.0-17.5) gm/dL Hct 46.2 (39.0-53.0) % MCV 86.2 (80.0-100.0) fL MCH 30.5 (25.0-35.0) pg MCHC 35.4 (31.0-37.0) g/dL RDW 14.1 (11.5-15.5) % Plt Count 192 (150-450) k/uL MPV 6.9 Neutrophils % 70 % Lymphocytes % 21 % Monocytes % 5 % Eosinophils % 2 % Basophils % 1 % Neutrophils # 8.3 H (1.3-7.7) k/uL Lymphocytes # 2.5 (1.0-4.8) k/uL Monocytes # 0.6 (0-1.0) k/uL Eosinophils # 0.3 (0-0.7) k/uL Basophils # 0.1 (0-0.2) k/uL Hyperchromasia Slight Sodium 137 (137-145) mmol/L Potassium 3.9 (3.5-5.1) mmol/L Chloride 102 (98-107) mmol/L Carbon Dioxide 27 (22-30) mmol/L Anion Gap 8 mmol/L BUN 14 (9-20) mg/dL Creatinine 0.94 (0.66-1.25) mg/dL Est GFR (CKD-EPI)AfAm >90 (>60 ml/min/1.73 sqM) Est GFR (CKD-EPI)NonAf >90 (>60 ml/min/1.73 sqM) Glucose 98 (74-99) mg/dL Plasma Lactic Acid [place] (0.7-2.0) mmol/L Calcium 9.3 (8.4-10.2) mg/dL Total Bilirubin 1.1 (0.2-1.3) mg/dL AST 27 (17-59) U/L ALT 32 (4-49) U/L Alkaline Phosphatase 85 (38-126) U/L Total Protein 7.5 (6.3-8.2) g/dL Albumin 4.5 (3.5-5.0) g/dL Amylase 45 (30-110) U/L Lipase 107 (23-300) U/L Urine Color Yellow Urine Appearance Clear (Clear) Urine pH 5.5 (5.0-8.0) Ur Specific [place] 1.023 (1.001-1.035) Urine Protein Trace H (Negative) Urine Glucose (UA) Negative (Negative) Urine Ketones Trace H (Negative) Urine Blood Negative (Negative) Urine Nitrite Negative (Negative) Urine Bilirubin Negative (Negative) Urine Urobilinogen <2.0 (<2.0) mg/dL Ur Leukocyte Esterase Negative (Negative) Disposition <Daquan Gottlieb - Last Filed: 07/17/20 14:51> Is patient prescribed a controlled substance at d/c from ED?: No Time of Disposition: 19:29 <Abner Alston - Last Filed: 07/17/20 19:46> Clinical Impression: Diverticulitis Disposition: HOME SELF-CARE Instructions (If sedation given, give patient instructions): Diverticulitis (ED ) Prescriptions: Amoxicillin/Potassium Clav [Augmentin 875-125 Tablet] 1 each PO Q12HR #28 tab Docusate [Colace] 100 mg PO BID #10 capsule metroNIDAZOLE [Flagyl] 500 mg PO QID #10 tab Referrals: None,Stated [REFERRING] - 1-2 days
[2020-07-17 16:48] LABS: Basophils # (A) 0.1 k/uL (0-0.2); Basophils % (A) 0 %; Eosinophils # (A) 0.2 k/uL (0-0.7); Eosinophils % (A) 2 %; HCT 47.3 % (39.0-53.0); HGB 16.6 gm/dL (13.0-17.5); Hyperchromasia Slight; Lymphocytes # (A) 2.5 k/uL (1.0-4.8); Lymphocytes % (A) 21 %; MCH 30.4 pg (25.0-35.0); MCHC 35.2 g/dL (31.0-37.0); MCV 86.4 fL (80.0-100.0); Mean Platelet Volume 6.9; Monocytes # (A) 0.7 k/uL (0-1.0); Monocytes % (A) 6 %; Neutrophils # (A) 8.4 k/uL (1.3-7.7); Neutrophils % (A) 70 %; Platelet Count 210 k/uL (150-450); RBC 5.47 m/uL (4.30-5.90)
[2020-07-17 16:57] LABS: ALT 33 U/L (4-49); AST 30 U/L (17-59); African American GFR (CKD) >90 (>60 ml/min/1.73 sqM); Albumin 4.7 g/dL (3.5-5.0); Alkaline Phosphatase 90 U/L (38-126); Amylase 50 U/L (30-110); Anion Gap 11 mmol/L; Blood Urea Nitrogen 13 mg/dL (9-20); Calcium 9.5 mg/dL (8.4-10.2); Carbon Dioxide 22 mmol/L (22-30); Chloride 103 mmol/L (98-107); Glucose 95 mg/dL (74-99); Lipase 119 U/L (23-300); Non-African American GFR(CKD) >90 (>60 ml/min/1.73 sqM); Potassium 3.8 mmol/L (3.5-5.1); Sodium 136 mmol/L (137-145); Total Protein 7.8 g/dL (6.3-8.2)
[2020-07-17 17:57] LABS: Appearance,Urine Clear (Clear); Bilirubin,Urine Negative (Negative); Blood,Urine Negative (Negative); Color,Urine Yellow; Glucose,Urine (UA) Negative (Negative); Ketones,Urine Trace (Negative); Leukocyte Esterase,Urine Negative (Negative); Nitrite,Urine Negative (Negative); PH, Urine 5.5 (5.0-8.0); Protein,Urine Trace (Negative); Specific Gravity,Urine 1.023 (1.001-1.035); Urobilinogen,Urine <2.0 mg/dL (<2.0)
[2020-07-17] MEDS ORDERED: HYDROmorphone 1 MG/ML 1 ML SYRINGE IVP STA (18:13)
[2020-07-17] MEDS ORDERED: SODIUM CHLORIDE 0.9% 500 ML 500 ML IV STA (18:13)
[2020-07-17] MEDS ORDERED: AMPICILLIN-SULBACTAM 3 GM in SODIUM CHLORIDE 0.9% 100 ML IVPB STA (18:15)
[2020-07-17 18:34] LABS: Basophils # (A) 0.1 k/uL (0-0.2); Basophils % (A) 1 %; Eosinophils # (A) 0.3 k/uL (0-0.7); Eosinophils % (A) 2 %; HCT 46.2 % (39.0-53.0); HGB 16.4 gm/dL (13.0-17.5); Hyperchromasia Slight; Lymphocytes # (A) 2.5 k/uL (1.0-4.8); Lymphocytes % (A) 21 %; MCH 30.5 pg (25.0-35.0); MCHC 35.4 g/dL (31.0-37.0); MCV 86.2 fL (80.0-100.0); Mean Platelet Volume 6.9; Monocytes # (A) 0.6 k/uL (0-1.0); Monocytes % (A) 5 %; Neutrophils # (A) 8.3 k/uL (1.3-7.7); Neutrophils % (A) 70 %; Platelet Count 192 k/uL (150-450); RBC 5.36 m/uL (4.30-5.90); RDW 14.1 % (11.5-15.5); WBC 11.8 k/uL (3.8-10.6)
[2020-07-17] MEDS ORDERED: ONDANSETRON 4 MG/2 ML VIAL IVP STA (18:37)
[2020-07-17 18:53] LABS: ALT 32 U/L (4-49); AST 27 U/L (17-59); African American GFR (CKD) >90 (>60 ml/min/1.73 sqM); Albumin 4.5 g/dL (3.5-5.0); Alkaline Phosphatase 85 U/L (38-126); Amylase 45 U/L (30-110); Anion Gap 8 mmol/L; Blood Urea Nitrogen 14 mg/dL (9-20); Calcium 9.3 mg/dL (8.4-10.2); Carbon Dioxide 27 mmol/L (22-30); Chloride 102 mmol/L (98-107); Glucose 98 mg/dL (74-99); Lipase 107 U/L (23-300); Non-African American GFR(CKD) >90 (>60 ml/min/1.73 sqM); Potassium 3.9 mmol/L (3.5-5.1); Sodium 137 mmol/L (137-145); Total Bilirubin 1.1 mg/dL (0.2-1.3); Total Protein 7.5 g/dL (6.3-8.2)
--- NOTE | 2020-07-17 19:21 | CT ---
EXAMINATION TYPE: CT abdomen pelvis w con DATE OF EXAM: 07/17/2020 COMPARISON: 03/20/2020. HISTORY: Left lower quadrant pain. History of diverticulitis. CT DLP: 2167 mGycm Automated exposure control for dose reduction was used. TECHNIQUE: Helical acquisition of images was performed from the lung bases through the pelvis. CONTRAST: Performed without Oral Contrast and with IV Contrast, patient injected with 100 mL of Isovue 300. FINDINGS: LUNG BASES: No significant abnormality is appreciated. LIVER/GB: No significant abnormality is appreciated. Hepatic steatosis. PANCREAS: No significant abnormality is seen. SPLEEN: No significant abnormality is seen. ADRENALS: No significant abnormality is seen. KIDNEYS: No significant abnormality is seen. FREE AIR: No free air is visualized. RETROPERITONEAL ADENOPATHY: None visualized REPRODUCTIVE ORGANS: No significant abnormality is seen URINARY BLADDER: Moderate urinary bladder wall thickening. PELVIC ADENOPATHY: None visualized. OSSEOUS STRUCTURES: No significant abnormality is seen. BOWEL: Moderate inflammatory changes involving the proximal sigmoid colonic diverticula. No bowel ob struction, free air or fluid. OTHER: None. IMPRESSION: FINDINGS OF ACUTE SIGMOID COLON DIVERTICULITIS WITHOUT COMPLICATION. Urinary bladder wall thickening, correlate for possible cystitis versus decompressed state.
[2020-07-17 19:36] VITALS: BP 143/90; PULSE 73
== END 2020-07-17 19:51 | disposition home or self-care (01) ==
LOC: EC 14:32
DX: K57.92 Diverticulitis of intestine, part unspecified, without perforation or abscess without bleeding (principal); J45.909 Unspecified asthma, uncomplicated; Z87.891 Personal history of nicotine dependence; F32.9 Major depressive disorder, single episode, unspecified
CPT/HCPCS: 36415; 80053; 82150; 83605; 83690; 85025; 81003; 74177; 99284; 96365; 96375; J2405; J1170; J0295; Q9967

== ENCOUNTER 2020-08-27 07:38 | Day surgery (SDC) | payer OTHER ==
[2020-08-25 09:46] VITALS: BMI 36.9
[~2020-08-27 07:38] MED LIST: LACTATED RINGERS 1,000 ML IV SCH; LIDOCAINE 1% (10MG/ML) FOR IV START INTRADERMA PRN
[2020-08-27 08:06] VITALS: RESP 16; TEMP 98.3
--- NOTE | 2020-08-27 08:17 | P.GSHP ---
History of Present Illness H&P Date: 08/27/20 CHIEF COMPLAINT: Diverticulitis HISTORY OF PRESENT ILLNESS: The patient is a 45-year-old male who presents for diverticulitis. Lower endoscopy was offered for further evaluation and management. PAST MEDICAL HISTORY: Please see list. PAST SURGICAL HISTORY: Please see list. MEDICATIONS: Please see list. ALLERGIES: Please see list. SOCIAL HISTORY: No illicit drug use FAMILY HISTORY: No reports of Crohn disease or ulcerative colitis. REVIEW OF ORGAN SYSTEMS: CONSTITUTIONAL: No reports of fevers or chills. PHYSICAL EXAM: VITAL SIGNS: Stable GENERAL: Well-developed pleasant in no acute distress. HEENT: No scleral icterus. Extraocular movements grossly intact. Moist buccal mucosa. NECK: Supple without lymphadenopathy. CHEST: Unlabored respirations. Equal bilateral excursions. CARDIOVASCULAR: Regular rate and rhythm. Distal 2+ pulses. ABDOMEN: Soft, nontender, nondistended. MUSCULOSKELETAL: No clubbing, cyanosis, or edema. ASSESSMENT: 1. Diverticulitis. PLAN: 1. Recommend proceeding with a lower endoscopy Past Medical History Past Medical History: Asthma, Renal Disease Additional Past Medical History / Comment(s): Diverticulitis, kidney stones, ureter blockage, hx lt shoulder injury History of Any Multi-Drug Resistant Organisms: None Reported Past Surgical History: Appendectomy, Tonsillectomy Additional Past Surgical History / Comment(s): History of right nephrolithiasis with ureteral stricture status post multiple surgeries. Left thumb surgery, COLONOSCOPY Past Anesthesia/Blood Transfusion Reactions: No Reported Reaction Smoking Status: Former smoker - Past Family History Father Family Medical History: CVA/TIA Additional Family Medical History / Comment(s): from CVA Mother Family Medical History: Diabetes Mellitus Medications and Allergies Home Medications Medication Instructions Recorded Confirmed Type Naproxen [Naprosyn] 500 mg PO Q12HR 08/25/20 08/25/20 History Allergies Allergy/AdvReac Type Severity Reaction Status Date / Time venom-honey bee Allergy Unknown Anaphylaxis Verified 08/27/20 07:59 [bee venom (honey bee)] sertraline HCl [From Zoloft] AdvReac Unknown "MAKES ME Verified 08/27/20 07:59 MEAN" PER PT Surgical - Exam Vital Signs Temp Pulse Resp BP Pulse Ox 98.3 F 79 16 131/82 95 08/27/20 08:04 08/27/20 08:04 08/27/20 08:04 08/27/20 08:04 08/27/20 08:04
[2020-08-27] MEDS ORDERED: PROPOFOL 10 MG/ML 20 ML VIAL IV ONE (08:42)
[2020-08-27 09:29] VITALS: BP 143/94; PULSE 74
--- NOTE | 2020-08-27 10:00 | P.PCN ---
Date of Procedure: 08/27/20 Description of Procedure: PREOPERATIVE DIAGNOSIS: Diverticulitis POSTOPERATIVE DIAGNOSIS: Sigmoid diverticulitis with sandra diverticulosis OPERATION: Colonoscopy to the cecum, ileocecal valve and appendiceal orifice. SURGEON: Arianne Gustafson MD. ANESTHESIA: MAC. INDICATIONS: The patient is a 45-year-old male who presents with recurrent diverticulitis. Benefits and risks were described and informed consent was obtained. DESCRIPTION OF PROCEDURE: The patient had undergone Sutab prep. The patient had been brought into the operating room and laid in the left lateral decubitus position. After adequate intravenous sedation, the rectum was examined with 2% lidocaine jelly. External hemorrhoids were encountered. The rectal tone was within normal limits. No lesions were palpated in the rectal vault. An Olympus colonoscope was advanced until the cecum, ileocecal valve and appendiceal orifice were clearly viewed. The prep was excellent. Scattered diverticulosis with recent sigmoid diverticulitis was encountered at 35 cm from the anal verge. Redundant sigmoid colon identified. A few hyperplastic polyps were found less than 3 mm at the sigmoid colon. Retroflexion of the scope demonstrated grade 2 internal hemorrhoids without active bleeding or inflammation. The colon was desufflated. The patient had tolerated the procedure well. Withdrawal time was over 6 minutes. FINDINGS: Aronchick preparation quality scale 1 (1-5) Internal hemorrhoids, grade 2 External prolapsed hemorrhoids, grade 2. No arteriovenous malformations. No adenomatous polyps. Recent sigmoid diverticulitis with sandra diverticulosis, scattered RECOMMENDATIONS: Lower endoscopy in 3 years, 2023 Plan - Discharge Summary Discharge Rx Participant: No New Discharge Prescriptions: Continue Naproxen [Naprosyn] 500 mg PO Q12HR Discharge Medication List Naproxen [Naprosyn] 500 mg PO Q12HR 08/25/20 [History] Follow up Appointment(s)/Referral(s): Arianne Gustafson MD [STAFF PHYSICIAN] - 09/02/20 (PATIENT WILL CALL TO SCHEDULE HIS FOLLOW UP APPOINTMENT) Patient Instructions/Handouts: *Surgery [facility] - (Anesthesia) Endoscopy Discharge Instructions, Diverticulitis (DC), Diverticulitis Diet (DC), Colonoscopy (DC) Discharge Disposition: HOME SELF-CARE
== END 2020-08-27 09:47 | disposition home or self-care (01) ==
LOC: ORWHC2ENDO 07:38
PROVIDERS: ATTEND Surgery Plastic and Reconstructive Surgery
DX: K57.30 Diverticulosis of large intestine without perforation or abscess without bleeding (principal); Q43.8 Other specified congenital malformations of intestine; K64.1 Second degree hemorrhoids; J45.909 Unspecified asthma, uncomplicated; N28.9 Disorder of kidney and ureter, unspecified; Z87.442 Personal history of urinary calculi; Z87.891 Personal history of nicotine dependence; Z82.3 Family history of stroke; Z83.3 Family history of diabetes mellitus; Z79.1 Long term (current) use of non-steroidal anti-inflammatories (NSAID); Z88.8 Allergy status to other drugs, medicaments and biological substances; Z91.030 Bee allergy status; F32.9 Major depressive disorder, single episode, unspecified
CPT/HCPCS: 45378; J2704; 93005

== ENCOUNTER 2020-12-18 09:56 | Observation (INO) | payer OTHER ==
[2020-12-18] MEDS ORDERED: NITROGLYCERIN OINT 1 INCH/GM PACKET TOPICAL STA (10:15)
[2020-12-18] MEDS ORDERED: ASPIRIN 81 MG PO STA (10:15)
[2020-12-18] MEDS ORDERED: SODIUM CHLORIDE 0.9% 500 ML 500 ML IV STA (10:15)
--- NOTE | 2020-12-18 10:20 | ED ---
General Adult HPI - General Chief complaint: Chest Pain Stated complaint: chest pain Time Seen by Provider: 12/18/20 10:10 Source: patient, EMS, RN notes reviewed, old records reviewed Mode of arrival: EMS Limitations: no limitations - History of Present Illness Initial comments: This is a 45-year-old male who comes in with complaint of chest pain. Patient states his been on and off for the last weeks and he had an IV and today it radiated down his right arm and he went to see his doctor he was given nitroglycerin took the pain away completely. Patient states in the past 2 weeks it seems to come on when he is exerting himself at work which she does quite often and it seems to go away when he relaxes. Patient denies any smoking diabetes or high cholesterol. Patient states he has been told his blood pressure is borderline. Patient currently is symptom-free. Patient denied any diaphoretic episodes. Patient denies any nausea today. Patient denies any shortness of breath today. Patient denies any recent fever chills or cough. Patient denies any family history of heart disease. Patient denies any leg swelling or calf tenderness. Patient denies lightheadedness or dizziness. - Related Data Home Medications Medication Instructions Recorded Confirmed No Known Home Medications 12/18/20 12/18/20 Allergies Allergy/AdvReac Type Severity Reaction Status Date / Time venom-honey bee Allergy Unknown Anaphylaxis Verified 12/18/20 11:38 [bee venom (honey bee)] sertraline HCl [From Zoloft] AdvReac Unknown "MAKES ME Verified 12/18/20 11:38 MEAN" PER PT Review of Systems ROS Statement: Those systems with pertinent positive or pertinent negative responses have been documented in the HPI. ROS Other: All systems not noted in ROS Statement are negative. Past Medical History Past Medical History: Asthma, Renal Disease Additional Past Medical History / Comment(s): Diverticulitis, kidney stones, ureter blockage, hx lt shoulder injury History of Any Multi-Drug Resistant Organisms: None Reported Past Surgical History: Appendectomy, Tonsillectomy Additional Past Surgical History / Comment(s): History of right nephrolithiasis with ureteral stricture status post multiple surgeries. Left thumb surgery, COLONOSCOPY Past Anesthesia/Blood Transfusion Reactions: No Reported Reaction Past Psychological History: Anxiety Smoking Status: Never smoker Past Alcohol Use History: None Reported Past Drug Use History: Marijuana - Past Family History Father Family Medical History: CVA/TIA Additional Family Medical History / Comment(s): from CVA Mother Family Medical History: Diabetes Mellitus General Exam - General Exam Comments Initial Comments: GENERAL: Patient is well-developed and well-nourished. Patient is nontoxic and well- hydrated and is in mild distress. ENT: Neck is soft and supple. No significant lymphadenopathy is noted. Oropharynx is clear. Moist mucous membranes. Neck has full range of motion without elicit ing any pain. EYES: The sclera were anicteric and conjunctiva were pink and moist. Extraocular mo vements were intact and pupils were equal round and reactive to light. Eyelids were unremarkable. PULMONARY: Unlabored respirations. Good breath sounds bilaterally. No audible rales rhonchi or wheezing was noted. CARDIOVASCULAR: There is a regular rate and rhythm without any murmurs gallops or rubs. ABDOMEN: Soft and nontender with normal bowel sounds. SKIN: Skin is clear with no lesions or rashes and otherwise unremarkable. NEUROLOGIC: Patient is alert and oriented x3. Cranial nerves II through XII are grossly intact. Motor and sensory are also intact. Normal speech, volume and content. Symmetrical smile. MUSCULOSKELETAL: Normal extremities with adequate strength and full range of motion. No lower extremity swelling or edema. No calf tenderness. LYMPHATICS: No significant lymphadenopathy is noted PSYCHIATRIC: Normal psychiatric evaluation. Limitations: no limitations Course Vital Signs 12/18/20 12/18/20 10:08 11:17 Temperature 97.8 F Pulse Rate 76 67 Respiratory 18 16 Rate Blood Pressure 159/109 153/102 O2 Sat by Pulse 98 98 Oximetry Medical Decision Making - Medical Decision Making EKG shows normal sinus rhythm at 73 bpm OR interval is 158 QRS is 90 QT interval 390 QTC is 429. Patient's EKG shows no ST segment elevation or depression. Patient does have Q waves in the inferior leads II, III, and F aVF. Patient's chest x-ray shows no acute abnormality. New. Patient had a headache in the emergency department did give him some Tylenol that relieved the headache. Patient had no more chest pain while in the emergency department however he had it intermittently for 2 weeks and relief with nitro today so started the patient on heparin. [facility] the patient wrote admitting orders and I consult to cardiology. I continued aspirin heparin the Nitropaste on the floor. - Lab Data Result diagrams: 12/18/20 10:21 12/18/20 10:21 Lab Results 12/18/20 12/18/20 12/18/20 Range/Units 10:21 10:21 10:21 WBC 6.8 (3.8-10.6) k/uL RBC 5.23 (4.30-5.90) m/uL Hgb 16.6 (13.0-17.5) gm/dL Hct 47.1 (39.0-53.0) % MCV 90.1 (80.0-100.0) fL MCH 31.7 (25.0-35.0) pg MCHC 35.2 (31.0-37.0) g/dL RDW 14.4 (11.5-15.5) % Plt Count 216 (150-450) k/uL MPV 7.3 Neutrophils % 57 % Lymphocytes % 32 % Monocytes % 5 % Eosinophils % 3 % Basophils % 1 % Neutrophils # 3.9 (1.3-7.7) k/uL Lymphocytes # 2.2 (1.0-4.8) k/uL Monocytes # 0.3 (0-1.0) k/uL Eosinophils # 0.2 (0-0.7) k/uL Basophils # 0.1 (0-0.2) k/uL Poikilocytosis Slight PT 10.8 (9.0-12.0) sec INR 1.0 (<1.2) APTT 23.6 (22.0-30.0) sec Sodium 138 (137-145) mmol/L Potassium 4.1 (3.5-5.1) mmol/L Chloride 107 (98-107) mmol/L Carbon Dioxide 23 (22-30) mmol/L Anion Gap 8 mmol/L BUN 13 (9-20) mg/dL Creatinine 0.92 (0.66-1.25) mg/dL Est GFR (CKD-EPI)AfAm >90 (>60 ml/min/1.73 sqM) Est GFR (CKD-EPI)NonAf >90 (>60 ml/min/1.73 sqM) Glucose 108 H (74-99) mg/dL Calcium 9.5 (8.4-10.2) mg/dL Magnesium 1.9 (1.6-2.3) mg/dL Total Bilirubin 0.5 (0.2-1.3) mg/dL AST 26 (17-59) U/L ALT 26 (4-49) U/L Alkaline Phosphatase 80 (38-126) U/L Troponin I (0.000-0.034) ng/mL Total Protein 7.0 (6.3-8.2) g/dL Albumin 4.3 (3.5-5.0) g/dL 12/18/20 Range/Units 10:21 WBC (3.8-10.6) k/uL RBC (4.30-5.90) m/uL Hgb (13.0-17.5) gm/dL Hct (39.0-53.0) % MCV (80.0-100.0) fL MCH (25.0-35.0) pg MCHC (31.0-37.0) g/dL RDW (11.5-15.5) % Plt Count (150-450) k/uL MPV Neutrophils % % Lymphocytes % % Monocytes % % Eosinophils % % Basophils % % Neutrophils # (1.3-7.7) k/uL Lymphocytes # (1.0-4.8) k/uL Monocytes # (0-1.0) k/uL Eosinophils # (0-0.7) k/uL Basophils # (0-0.2) k/uL Poikilocytosis PT (9.0-12.0) sec INR (<1.2) APTT (22.0-30.0) sec Sodium (137-145) mmol/L Potassium (3.5-5.1) mmol/L Chloride (98-107) mmol/L Carbon Dioxide (22-30) mmol/L Anion Gap mmol/L BUN (9-20) mg/dL Creatinine (0.66-1.25) mg/dL Est GFR (CKD-EPI)AfAm (>60 ml/min/1.73 sqM) Est GFR (CKD-EPI)NonAf (>60 ml/min/1.73 sqM) Glucose (74-99) mg/dL Calcium (8.4-10.2) mg/dL Magnesium (1.6-2.3) mg/dL Total Bilirubin (0.2-1.3) mg/dL AST (17-59) U/L ALT (4-49) U/L Alkaline Phosphatase (38-126) U/L Troponin I <0.012 (0.000-0.034) ng/mL Total Protein (6.3-8.2) g/dL Albumin (3.5-5.0) g/dL Critical Care Time Critical Care Time: Yes Total Critical Care Time: 35 Disposition Clinical Impression: Unstable angina pectoris Disposition: ADMITTED IP TO THIS HOSP Referrals: [facility],Clinic [Primary Care Provider] - 1-2 days Time of Disposition: 12:12
[2020-12-18 10:29] LABS: Basophils # (A) 0.1 k/uL (0-0.2); Basophils % (A) 1 %; Eosinophils # (A) 0.2 k/uL (0-0.7); Eosinophils % (A) 3 %; HCT 47.1 % (39.0-53.0); HGB 16.6 gm/dL (13.0-17.5); Lymphocytes # (A) 2.2 k/uL (1.0-4.8); Lymphocytes % (A) 32 %; MCH 31.7 pg (25.0-35.0); MCHC 35.2 g/dL (31.0-37.0); MCV 90.1 fL (80.0-100.0); Mean Platelet Volume 7.3; Monocytes # (A) 0.3 k/uL (0-1.0); Monocytes % (A) 5 %; Neutrophils # (A) 3.9 k/uL (1.3-7.7); Neutrophils % (A) 57 %; Platelet Count 216 k/uL (150-450); Poikilocytosis Slight; RBC 5.23 m/uL (4.30-5.90); RDW 14.4 % (11.5-15.5); WBC 6.8 k/uL (3.8-10.6)
--- NOTE | 2020-12-18 10:38 | XR ---
EXAMINATION TYPE: XR chest 2V DATE OF EXAM: 12/18/2020 COMPARISON: May 28, 2013 HISTORY: Chest pain TECHNIQUE: Frontal and lateral views of the chest are obtained. FINDINGS: There is no focal air space opacity. No evidence for pneumothorax. No pleural effusion. The cardiac silhouette size is within normal limits. The osseous structures are grossly intact. IMPRESSION: 1. No acute cardiopulmonary process.
[2020-12-18 10:40] LABS: ALT 26 U/L (4-49); AST 26 U/L (17-59); African American GFR (CKD) >90 (>60 ml/min/1.73 sqM); Albumin 4.3 g/dL (3.5-5.0); Alkaline Phosphatase 80 U/L (38-126); Anion Gap 8 mmol/L; Blood Urea Nitrogen 13 mg/dL (9-20); Calcium 9.5 mg/dL (8.4-10.2); Carbon Dioxide 23 mmol/L (22-30); Chloride 107 mmol/L (98-107); Glucose 108 mg/dL (74-99); Magnesium 1.9 mg/dL (1.6-2.3); Non-African American GFR(CKD) >90 (>60 ml/min/1.73 sqM); Potassium 4.1 mmol/L (3.5-5.1); Sodium 138 mmol/L (137-145); Total Bilirubin 0.5 mg/dL (0.2-1.3)
[2020-12-18 10:51] LABS: Partial Thromboplastin Time 23.6 sec (22.0-30.0); Prothrombin Time 10.8 sec (9.0-12.0)
[2020-12-18] MEDS ORDERED: ACETAMINOPHEN TAB 500 MG TAB PO STA (11:18)
[2020-12-18] MEDS ORDERED: HEPARIN SODIUM 1,000 UN/ML (10ML VL) IV ONE (11:32)
[2020-12-18] MEDS ORDERED: NITROGLYCERIN SL TABS 0.4 MG TAB SUBLINGUAL PRN (12:13)
[2020-12-18] MEDS: HEPARIN SOD,PORK IN 0.45% NACL 25,000 UNIT in 0.45% NACL 1 250ML.BAG IV SCH (13:00)
[2020-12-18] MEDS: NITROGLYCERIN OINT 1 INCH/GM PACKET TOPICAL SCH ×2 (17:09→22:16)
[2020-12-18] MEDS ORDERED: ACETAMINOPHEN TAB 325 MG TAB PO PRN (17:13)
--- NOTE | 2020-12-18 23:39 | P.HPIM ---
History of Present Illness H&P Date: 12/18/20 Chief Complaint: Chest Pain Patient is a 45-year-old male with a known history of asthma, anxiety, marijuana use, history of renal stones presents to ER with complaints of chest pain. Patient states that he has been having on and off chest pain for the past 2 weeks, pressure-like sensation and also elevated blood pressure. Chest pain radiating down his right arm. Patient is also complaining of exertional dyspnea and relieved with rest. No complaints of cough or sputum production. No fever no chills. No nausea vomiting or abdominal pain or diarrhea. No diaphoresis. Denies any recent illnesses. No leg swelling. He was seen at the commodity trader office and was given nitroglycerin sublingual tablet which seemed to relieve his pain completely. Patient was sent to ER for evaluation. Chest x-ray showed no acute cardiopulmonary process. EKG showed normal sinus rhythm. Laboratory data showed WBC 6.8 hemoglobin 16.6 and platelets 216 Sodium 138 potassium 4.1 chloride 107 BUN 13 and creatinine 0.92 Troponin x3 - Liver enzymes are not elevated. Blood pressure was 159/109 on admission, pulse 76 respiration 18 and pulse ox 98% on room air. Patient denied any family history of premature coronary disease. Review of Systems Constitutional: Patient denies any fever or chills . No generalized weakness or weight loss. Abdomen: Patient denied nausea vomiting and diarrhea and abdominal pain. Cardiovascular: Patient denies any chest pain or short of breath no palpitations. Respiratory: patient denied any cough or sputum production. No shortness of breath Neurologic: Patient denied any numbness or tingling headache. Musculoskeletal: Patient denies any complaints of joint swelling or deformity. Skin: Negative Psychiatric: Negative Endocrine: No heat or cold intolerance. No recent weight gain. Genitourinary: No dysuria or hematuria. All other 14 point ROS negative except the above Past Medical History Past Medical History: Asthma Additional Past Medical History / Comment(s): Diverticulitis, kidney stones, ureter blockage, hx lt shoulder injury History of Any Multi-Drug Resistant Organisms: None Reported Past Surgical History: Appendectomy, Tonsillectomy Additional Past Surgical History / Comment(s): History of right nephrolithiasis with ureteral stricture status post multiple surgeries. Left thumb surgery, COLONOSCOPY, lithotripsies Past Anesthesia/Blood Transfusion Reactions: No Reported Reaction Past Psychological History: Anxiety Smoking Status: Never smoker Past Alcohol Use History: None Reported Past Drug Use History: Marijuana - Past Family History Father Family Medical History: CVA/TIA Additional Family Medical History / Comment(s): from CVA Mother Family Medical History: Diabetes Mellitus Brother(s) Family Medical History: AFIB, Diabetes Mellitus Medications and Allergies Home Medications Medication Instructions Recorded Confirmed Type No Known Home Medications 12/18/20 12/18/20 History Allergies Allergy/AdvReac Type Severity Reaction Status Date / Time venom-honey bee Allergy Unknown Anaphylaxis Verified 12/18/20 11:38 [bee venom (honey bee)] sertraline HCl [From Zoloft] AdvReac Unknown "MAKES ME Verified 12/18/20 11:38 MEAN" PER PT Physical Exam Vitals: Vital Signs Temp Pulse Pulse Resp BP BP Pulse Ox 12/18/20 14:47 98.5 F 97 18 151/91 97 12/18/20 13:05 68 18 127/79 96 12/18/20 11:17 67 16 153/102 98 12/18/20 10:08 97.8 F 76 18 159/109 98 Intake and Output 12/18/20 12/18/20 12/18/20 06:59 14:59 22:59 Other: Weight 117.934 kg PHYSICAL EXAMINATION: Patient is lying in the bed comfortably, no acute distress, awake alert and o riented.. HEENT: Normocephalic. Neck is supple. Pupils reactive. Nostrils clear. Oral cavity is moist. Neck reveals no JVD, carotid bruits, or thyromegaly. CHEST EXAMINATION: Trachea is central. Symmetrical expansion. Lung thorne clear to auscultation and percussion. CARDIAC: Normal S1, S2 with no gallops. No murmurs ABDOMEN: Soft. Bowel sounds normal. No organomegaly. No abdominal bruits. Extremities: reveal no edema. No clubbing or cyanosis Neurologically awake, alert, oriented x3 with well-coordinated movements. No focal deficits noted Skin: No rash or skin lesions. Psychiatric: Coperative. Nonsuicidal Musculoskeletal: No joint swelling or deformity. Normal range of motion. Results CBC & Chem 7: 12/18/20 10:21 12/18/20 10:21 Labs: Abnormal Lab Results - Last 24 Hours (Table) 12/18/20 Range/Units 10:21 Glucose 108 H (74-99) mg/dL Thrombosis Risk Factor Assmnt - Choose All That Apply Each Factor Represents 1 point: Age 41-60 years Thrombosis Risk Factor Assessment Total Risk Factor Score: 1 Thrombosis Risk Factor Assessment Level: Low Risk Assessment and Plan Assessment: Atypical chest pain possible unstable angina. Uncontrolled blood pressure Asthma Anxiety History of marijuana use Obesity with BMI 38.4 DVT prophylaxis. Plan: Patient will be continued on telemetry monitoring. Serial EKG and troponin x3. Nitroglycerin sublingual as needed for chest pain. Monitor blood pressure closely and add medications as needed. Monitor electrolytes and patient will be continued heparin drip. Currently patient denied any chest pain. Continue to follow closely.
[2020-12-19] MEDS: HEPARIN SOD,PORK IN 0.45% NACL 25,000 UNIT in 0.45% NACL 1 250ML.BAG IV SCH (07:37)
[2020-12-19] MEDS: NITROGLYCERIN OINT 1 INCH/GM PACKET TOPICAL SCH (07:42)
[2020-12-19 07:48] VITALS: TEMP 98.2
[2020-12-19] MEDS ORDERED: ASPIRIN 325 MG TAB PO SCH (09:00)
[2020-12-19 10:15] LABS: Chol/HDL Ratio 5.61; LDL Cholesterol,Calculated 111.6 mg/dL (0.0-131.0); VLDL Calculation 40.4 mg/dL (5.00-40.00)
[2020-12-19 11:11] VITALS: BP 137/86; PULSE 63; RESP 18
--- NOTE | 2020-12-19 12:03 | P.CRDCN ---
History of Present Illness Consult date: 12/19/20 History of present illness: HISTORY OF PRESENT ILLNESS: This is a 45-year-old male with a past medical history significant for daily marijuana use. 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 We have been asked to see the patient in consultation for chest pain. Patient examined at the bedside. Patient states he has been having chest pain on and off for the past 2 weeks. He states the pain first started as a sharp pain in the middle of his chest. He reports yesterday the pain felt like a heavy pressure on his chest and radiated into his left arm. He states the pain was worse with deep inspiration. He denies any pain with chest wall palpation. He reports nausea but denies vomiting. He denies shortness of breath. Patient states he went to his primary care physician yesterday to be evaluated. Patient states his blood pressure at that time was 180s/120s. Blood pressure this morning 107/56. The patient currently does not have any chest pain or pressure at the time of examination. The patient denies a family history of premature coronary artery disease. EKG reveals sinus mechanism with Q waves inferiorly, unchanged from previous EKG Chest xray negative for acute process Laboratory data: WBC 6.8. Hemoglobin 16.6. Platelet count 216. Sodium 138. Potassium 4.1. BUN 13. Creatinine 0.92. Magnesium 1.9. Troponin negative 3. Current home cardiac medications include none REVIEW OF SYSTEMS: At the time of my exam: CONSTITUTIONAL: Denies fever or chills. HEENT: Denies blurred vision, vision changes, or eye pain. Denies hemoptysis CARDIOVASCULAR: Denies chest pain. Denies orthopnea. Denies PND. Denies palpitations RESPIRATORY: Denies shortness of breath. GASTROINTESTINAL: Denies abdominal pain. Denies nausea or vomiting. HEMATOLOGIC: Denies bleeding disorders. GENITOURINARY: Denies any blood in urine. SKIN: Denies pruitis. Denies rash. PHYSICAL EXAM: VITAL SIGNS: Reviewed. GENERAL: Well-developed in no acute distress. HEENT: Head is normocephalic. Pupils are equal, round. Sclerae anicteric. Mucous membranes of the mouth are moist. Neck supple. No JVD or thyromegaly LUNGS: Respirations even and unlabored. Lungs essentially clear to auscultation bilaterally. HEART: Regular rate and rhythm. S1 and S2 heard. ABDOMEN: Soft. Nondistended. Nontender. EXTREMITIES: Normal range of motion. No clubbing or cyanosis. Peripheral pulses intact. No lower extremity edema NEUROLOGIC: Awake and alert. Oriented x 3. ASSESSMENT: Chest pain, troponins negative 3 Daily marijuana use Obesity: BMI 38.5 PLAN: An acute coronary been has been ruled out Discontinue IV heparin Obtain 2-D echo to assess cardiac structure and function Patient to undergo stress echocardiogram today to assess for stress-induced ischemia Further recommendations pending patient's course Nurse practitioner note has been reviewed by physician. Signing provider agrees with the documented findings, assessment, and plan of care. Past Medical History Past Medical History: Asthma Additional Past Medical History / Comment(s): Diverticulitis, kidney stones, ureter blockage, hx lt shoulder injury History of Any Multi-Drug Resistant Organisms: None Reported Past Surgical History: Appendectomy, Tonsillectomy Additional Past Surgical History / Comment(s): History of right nephrolithiasis with ureteral stricture status post multiple surgeries. Left thumb surgery, COLONOSCOPY, lithotripsies Past Anesthesia/Blood Transfusion Reactions: No Reported Reaction Past Psychological History: Anxiety Smoking Status: Never smoker Past Alcohol Use History: None Reported Past Drug Use History: Marijuana - Past Family History Father Family Medical History: CVA/TIA Additional Family Medical History / Comment(s): from CVA Mother Family Medical History: Diabetes Mellitus Brother(s) Family Medical History: AFIB, Diabetes Mellitus Medications and Allergies Home Medications Medication Instructions Recorded Confirmed Type No Known Home Medications 12/18/20 12/18/20 History Allergies Allergy/AdvReac Type Severity Reaction Status Date / Time venom-honey bee Allergy Unknown Anaphylaxis Verified 12/18/20 11:38 [bee venom (honey bee)] sertraline HCl [From Zoloft] AdvReac Unknown "MAKES ME Verified 12/18/20 11:38 MEAN" PER PT Physical Exam Vitals: Vital Signs Temp Pulse Pulse Resp BP BP Pulse Ox 12/19/20 08:24 98 12/19/20 07:44 98.2 F 80 16 107/56 96 12/19/20 02:00 98.6 F 68 18 132/86 95 12/18/20 20:00 98.4 F 75 18 137/93 96 12/18/20 18:00 98.2 F 75 16 153/90 12/18/20 15:00 98.2 F 75 16 153/90 12/18/20 14:47 98.5 F 97 18 151/91 97 12/18/20 13:05 68 18 127/79 96 12/18/20 11:17 67 16 153/102 98 12/18/20 10:08 97.8 F 76 18 159/109 98 Intake and Output 12/18/20 12/19/20 12/19/20 22:59 06:59 14:59 Intake Total 308.167 97.042 80.206 Output Total 300 Balance 8.167 97.042 80.206 Intake: Intake, IV Titration 68.167 96.042 80.206 Amount Heparin Sod,Pork in 0.45% 68.167 96.042 80.206 NaCl 25,000 unit In 0.45 % NaCl 1 250ml.bag @ 8. 479 UNITS/KG/HR 10 mls/hr IV .Q24H [facility] Rx#: [id number] Oral 240 1 Output: Urine 300 Other: # Voids 3 1 Weight 118.4 kg Results 12/18/20 10:21 12/18/20 10:21 Cardiac Enzymes 12/18/20 12/18/20 12/18/20 Range/Units 10:21 10:21 13:37 AST 26 (17-59) U/L Troponin I <0.012 <0.012 (0.000-0.034) ng/mL 12/18/20 Range/Units 16:07 AST (17-59) U/L Troponin I <0.012 (0.000-0.034) ng/mL Coagulation 12/18/20 12/18/20 12/19/20 Range/Units 10:21 18:56 01:20 PT 10.8 (9.0-12.0) sec APTT 23.6 26.7 30.2 H (22.0-30.0) sec 12/19/20 Range/Units 07:49 PT (9.0-12.0) sec APTT 38.6 H (22.0-30.0) sec CBC 12/18/20 Range/Units 10:21 WBC 6.8 (3.8-10.6) k/uL RBC 5.23 (4.30-5.90) m/uL Hgb 16.6 (13.0-17.5) gm/dL Hct 47.1 (39.0-53.0) % Plt Count 216 (150-450) k/uL Comprehensive Metabolic Panel 12/18/20 Range/Units 10:21 Sodium 138 (137-145) mmol/L Potassium 4.1 (3.5-5.1) mmol/L Chloride 107 (98-107) mmol/L Carbon Dioxide 23 (22-30) mmol/L BUN 13 (9-20) mg/dL Creatinine 0.92 (0.66-1.25) mg/dL Glucose 108 H (74-99) mg/dL Calcium 9.5 (8.4-10.2) mg/dL AST 26 (17-59) U/L ALT 26 (4-49) U/L Alkaline Phosphatase 80 (38-126) U/L Total Protein 7.0 (6.3-8.2) g/dL Albumin 4.3 (3.5-5.0) g/dL Current Medications Generic Name Dose Route Start Last Admin Trade Name Freq PRN Reason Stop Dose Admin Acetaminophen 650 mg 12/18/20 17:13 12/18/20 17:25 Acetaminophen Tab 325 Mg Tab PO 650 mg Q6HR PRN Administration Fever and/ or Pain Aspirin 325 mg 12/19/20 09:00 12/19/20 07:38 Aspirin 325 Mg Tab PO 325 mg DAILY [facility] Administration Heparin Sodium/Sodium Chloride 250 mls @ 10 mls/hr 12/18/20 11:45 12/19/20 07:37 25,000 unit/ Sodium Chloride IV 14.47 units/kg/hr .Q24H SAV 17.065 mls/hr Administration Protocol 8.479 UNITS/KG/HR Nitroglycerin 0.4 mg 12/18/20 12:13 Nitroglycerin Sl Tabs 0.4 Mg Tab SUBLINGUAL Q5M PRN Chest Pain Nitroglycerin 1 inch 12/18/20 18:00 12/19/20 07:42 Nitroglycerin Oint 1 Inch/Gm Packet TOPICAL Not Given Q6HR SAV Intake and Output 12/18/20 12/19/20 12/19/20 22:59 06:59 14:59 Intake Total 308.167 97.042 80.206 Output Total 300 Balance 8.167 97.042 80.206 Intake: Intake, IV Titration 68.167 96.042 80.206 Amount Heparin Sod,Pork in 0.45% 68.167 96.042 80.206 NaCl 25,000 unit In 0.45 % NaCl 1 250ml.bag @ 8. 479 UNITS/KG/HR 10 mls/hr IV .Q24H [facility] Rx#: [id number] Oral 240 1 Output: Urine 300 Other: # Voids 3 1 Weight 118.4 kg 12/18/20 10:21 12/18/20 10:21
--- NOTE | 2020-12-19 14:31 | ECHOF ---
Referral Reason:Chest pain, LV function MEASUREMENTS -------- HEIGHT: 175.3 cm WEIGHT: 117.9 kg BP: 107/56 RVIDd: 3.3 cm (< 3.3) IVSd: 1.2 cm (0.6 - 1.1) LVIDd: 3.7 cm (3.9 - 5.3) LVPWd: 1.2 cm (0.6 - 1.1) IVSs: 1.5 cm LVIDs: 2.6 cm LVPWs: 1.8 cm LAESV Index (A-L): 20.87 ml/m Ao Diam: 2.8 cm (2.0 - 3.7) AV Cusp: 2.0 cm (1.5 - 2.6) LA Diam: 3.6 cm (2.7 - 3.8) MV EXCURSION: 22.486 mm (> 18.000) MV EF SLOPE: 117 mm/s (70 - 150) EPSS: 0.2 cm MV E John: 0.64 m/s MV DecT: 214 ms MV A John: 0.82 m/s MV E/A Ratio: 0.78 RAP: 5.00 mmHg RVSP: 29.07 mmHg FINDINGS -------- Sinus rhythm. This was a technically adequate study. The left ventricular size is normal. There is borderline concentric left ventricular hypertrophy. Overall left ventricular systolic function is normal with, an EF between 55 - 60 %. The diastolic filling pattern is normal for the age of the patient 9.09. The right ventricle is mildly enlarged. Normal LA size by volume 22+/-6 ml/m2. The right atrial size is normal. Interatrial and interventricular septum intact. The aortic valve is trileaflet and appears structurally normal. There is no evidence of aortic regu rgitation. There is no evidence of aortic stenosis. There is trace to mild mitral regurgitation. Mild tricuspid regurgitation present. There is no evidence of pulmonary hypertension. The right v entricular systolic pressure, as measured by Doppler, is 29.07mmHg. There is no pulmonic regurgitation present. The aortic root size is normal. The inferior vena cava is mildly dilated. There is no pericardial effusion. CONCLUSIONS -------- 1. This was a technically adequate study. 2. The left ventricular size is normal. 3. There is borderline concentric left ventricular hypertrophy. 4. Overall left ventricular systolic function is normal with, an EF between 55 - 60 %. 5. The diastolic filling pattern is normal for the age of the patient 9.09 6. The right ventricle is mildly enlarged. 7. There is trace to mild mitral regurgitation. 8. Mild tricuspid regurgitation present. 9. The inferior vena cava is mildly dilated. CLUBHOUSE MANAGER: Britt Cabrera RDCS
--- NOTE | 2020-12-19 16:27 | ECHOS ---
STRESS ECHOCARDIOGRAM INDICATIONS: Unstable angina BASELINE HEART RATE: 81 BASELINE BLOOD PRESSURE: 122/89 MAXIMUM HEART RATE: 167 MAXIMUM BLOOD PRESSURE: 227/91 85% MPHR: 150 100% MPHR: 177 METS: 12.1 MAXIMUM STAGE REACHED: 4 TOTAL EXERCISE TIME: 11:15 CLINICAL INFORMATION: Baseline EKG revealed normal sinus rhythm without significant ST-T changes. Patient walked on standard Horacio protocol for 11 minutes 15 seconds, achieved a maximal heart rate of 167 beats per minute, which is more than 85% of predicted maximal. He did not have any angina. There was no arrhythmia. EKG did not reveal any ST-segment changes to indicate ischemia. He had a hypertensive response to exercise with a peak pressure of 227/91. By EKG criteria, this is a negative stress test with excellent exercise capacity with hypertensive response to exercise. Baseline echo images revealed normal wall motion and wall thickening of all segments. At peak exercise there was good augmentation of left ventricular wall motion and wall thickening of all segments, suggesting that there is no evidence of any stress-induced ischemia on this study. IMPRESSION: 1. Excellent exercise capacity with a negative stress test by EKG criteria. 2. Normal stress echocardiogram without evidence of ischemia. MMODL / IJN: [id number] /
[2020-12-20] MEDS ORDERED: ASPIRIN 81 MG PO SCH (09:00)
== END 2020-12-19 16:53 | disposition home or self-care (01) ==
LOC: EC 09:56 → 6NMEDSUR 12:15 → 3SCARD 13:17
PROVIDERS: ADMIT Internal Medicine; ATTEND Internal Medicine
DX: R07.89 Other chest pain (principal); R03.0 Elevated blood-pressure reading, without diagnosis of hypertension; J45.909 Unspecified asthma, uncomplicated; K57.90 Diverticulosis of intestine, part unspecified, without perforation or abscess without bleeding; F41.9 Anxiety disorder, unspecified; R51.9 Headache, unspecified; R11.0 Nausea; E66.9 Obesity, unspecified; Z68.38 Body mass index [BMI] 38.0-38.9, adult; Z88.8 Allergy status to other drugs, medicaments and biological substances; Z91.030 Bee allergy status; Z87.442 Personal history of urinary calculi; Z90.49 Acquired absence of other specified parts of digestive tract; Z98.890 Other specified postprocedural states; Z87.828 Personal history of other (healed) physical injury and trauma; Z82.3 Family history of stroke; Z83.3 Family history of diabetes mellitus; Z82.49 Family history of ischemic heart disease and other diseases of the circulatory system
CPT/HCPCS: 96366 ×3; 96376; 96365; 99291; 36415; 94760; 93005; 93306; 93351; 80061; 80053; 83735; 84484; 85025; 85610; 85730 ×2; 71046; G0378 ×2; J1644 ×3

== ENCOUNTER → 2021-10-29 | Outpatient (CLI) | payer OTHER ==
[2021-10-29 16:19] LABS: HCT 51.9 % (39.6-50.0); HGB 17.8 g/dL (13.0-17.0); MCH 30.5 pg (27.0-32.0); MCHC 34.3 g/dL (32.0-37.0); Mean Platelet Volume 9.9 fL (9.5-12.2); NRBC Per 100 WBC 0 /100 WBCS (0.0-0.0); Platelet Count 207 X 10*3/uL (140-440); RBC 5.83 X 10*6/uL (4.40-5.60); RDW 13.5 % (11.5-14.5); WBC 5.59 X 10*3/uL (4.50-10.00)
[2021-10-29 16:44] LABS: African American GFR (CKD) 94.1 (60.0-200.0); Albumin 4.9 g/dL (3.8-4.9); Albumin/Globulin Ratio 1.75 (1.60-3.17); Anion Gap 12.5 mmol/L (10.00-18.00); BUN/Creat Ratio 14.91 Ratio (12.00-20.00); Blood Urea Nitrogen 16.4 mg/dL (9.0-27.0); Calcium 9.6 mg/dL (8.7-10.3); Carbon Dioxide 24.5 mmol/L (20.0-27.5); Globulin 2.8 g/dL (1.6-3.3); Non-African American GFR(CKD) 81.2 (60.0-200.0); Potassium 4.1 mmol/L (3.5-5.5); Total Bilirubin 0.9 mg/dL (0.30-1.20); Total Protein 7.7 g/dL (6.2-8.2)
== END | disposition home or self-care (01) ==
LOC: LABPAT 09:54
PROVIDERS: ATTEND Surgery Plastic and Reconstructive Surgery
DX: Z01.812 Encounter for preprocedural laboratory examination (principal)
CPT/HCPCS: 80053; 85027; 86850; 86900; 86901

== ENCOUNTER 2021-11-05 09:20 | Inpatient (IN) | payer OTHER ==
[~2021-11-05 09:20] MED LIST changes: +Antibiotics per Pharmacy 1 EACH MISC MISCELLANE PRN; -LACTATED RINGERS 1,000 ML IV SCH
--- NOTE | 2021-11-05 09:22 | P.GSHP ---
History of Present Illness H&P Date: 11/05/21 CHIEF COMPLAINT: History of sigmoid diverticulitis HISTORY OF PRESENT ILLNESS: The patient is a 46-year-old male with long-standing history of sigmoid diverticulitis for over one year. He presents for a colonoscopy which excluded underlying neoplasm. He also presents for sigmoid colon resection. PAST MEDICAL HISTORY: Please see list. PAST SURGICAL HISTORY: Please see list. MEDICATIONS: Please see list. ALLERGIES: Please see list. SOCIAL HISTORY: No illicit drug use FAMILY HISTORY: No reports of Crohn disease or ulcerative colitis. REVIEW OF ORGAN SYSTEMS: CONSTITUTIONAL: Denies any fever or chills. HEENT: Denies any trouble with vision or nosebleeds. No difficulty swallowing. LYMPHATIC: The patient denies any lumps and bumps around the neck. ENDOCRINE: Denies any thyroid disorders. RESPIRATORY: Denies pneumonia. Denies any troubles with breathing or dyspnea on exertion. CARDIOVASCULAR: Denies any chest pain, palpitations, or recent heart attacks. GASTROINTESTINAL: Has chronic diverticulitis. GENITOURINARY: Has increased urinary frequency. MUSCULOSKELETAL: Has back pain, stiffness, joint arthritis. NEUROLOGIC: Denies any numbness or tingling along the distal extremities. No seizure disorders or headaches. PSYCHIATRIC: Denies depression or suidical ideation. HEMATOLOGIC: Denies any abnormal bleeding or bruising. PHYSICAL EXAM: VITAL SIGNS: Stable GENERAL: Well-developed pleasant in no acute distress. HEENT: No scleral icterus. Extraocular movements grossly intact. Moist buccal mucosa. NECK: Supple without lymphadenopathy. CHEST: Unlabored respirations. Equal bilateral excursions. CARDIOVASCULAR: Regular rate and rhythm. Distal 2+ pulses. ABDOMEN: Soft, nontender, nondistended. MUSCULOSKELETAL: No clubbing, cyanosis, or edema. NERUO: Cranial nerves 2-12 grossly intact. PSYCH: Alert and oriented to person place and time. ASSESSMENT: 1. History of perforated diverticulitis 2. Morbid obesity, BMI 36.2 PLAN: 1. Benefits and risks of surgical robotic sigmoid resection was reviewed in detail. Robotic-assisted approach was also described. 2. Enhanced colon recovery program. 3. DVT prophylaxis. 4. Antibiotic prophylaxis. 5. Inpatient hospitalization greater than 2 nights. 6. Colonoscopy preop described. 7. Patient's elevated risk due to pre-existing heart disease and morbid obesity Past Medical History Past Medical History: Asthma, Hypertension Additional Past Medical History / Comment(s): Diverticulitis, kidney stones, ureter blockage, hx lt shoulder injury, PAST HISTORY OF HYPERTENSION PRIOR TO WEIGHT LOSS, ASTHMA A CHILD, GOUT History of Any Multi-Drug Resistant Organisms: None Reported Past Surgical History: Appendectomy, Tonsillectomy Additional Past Surgical History / Comment(s): History of right nephrolithiasis with ureteral stricture status post multiple surgeries. Left thumb surgery, COLONOSCOPY, lithotripsies Past Anesthesia/Blood Transfusion Reactions: Motion Sickness Additional Past Anesthesia/Blood Transfusion Reaction / Comment(s): DIFFICULTY WAKING UP - CAUSES ANXIETY AND DEPRESSION Smoking Status: Never smoker - Past Family History Father Family Medical History: CVA/TIA Additional Family Medical History / Comment(s): from CVA Mother Family Medical History: Diabetes Mellitus Brother(s) Family Medical History: AFIB, Diabetes Mellitus Medications and Allergies Home Medications Medication Instructions Recorded Confirmed Type No Known Home Medications 12/18/20 11/02/21 History Allergies Allergy/AdvReac Type Severity Reaction Status Date / Time venom-honey bee Allergy Unknown Anaphylaxis Verified 11/02/21 12:46 [bee venom (honey bee)] sertraline HCl [From Zoloft] AdvReac Unknown "MAKES ME Verified 11/02/21 12:46 MEAN" PER PT
[2021-11-05 10:12] LABS: Basophils # (A) 0.1 k/uL (0-0.2); Basophils % (A) 1 %; Eosinophils # (A) 0.2 k/uL (0-0.7); Eosinophils % (A) 4 %; HCT 46.6 % (39.0-53.0); HGB 16.3 gm/dL (13.0-17.5); Lymphocytes # (A) 1.9 k/uL (1.0-4.8); Lymphocytes % (A) 33 %; MCHC 35.1 g/dL (31.0-37.0); MCV 88.3 fL (80.0-100.0); Mean Platelet Volume 7.1; Monocytes # (A) 0.3 k/uL (0-1.0); Monocytes % (A) 5 %; Neutrophils # (A) 3.2 k/uL (1.3-7.7); Neutrophils % (A) 56 %; Platelet Count 221 k/uL (150-450); RBC 5.27 m/uL (4.30-5.90); RDW 13.2 % (11.5-15.5); WBC 5.8 k/uL (3.8-10.6)
[2021-11-05 10:29] LABS: ALT 27 U/L (4-49); AST 28 U/L (17-59); African American GFR (CKD) >90 (>60 ml/min/1.73 sqM); Albumin 4.7 g/dL (3.5-5.0); Alkaline Phosphatase 77 U/L (38-126); Anion Gap 8 mmol/L; Blood Urea Nitrogen 10 mg/dL (9-20); Carbon Dioxide 24 mmol/L (22-30); Chloride 109 mmol/L (98-107); Glucose 97 mg/dL (74-99); Non-African American GFR(CKD) >90 (>60 ml/min/1.73 sqM); Potassium 3.9 mmol/L (3.5-5.1); Sodium 141 mmol/L (137-145); Total Bilirubin 0.9 mg/dL (0.2-1.3); Total Protein 7.6 g/dL (6.3-8.2)
[2021-11-05] MEDS ORDERED: PROPOFOL 10 MG/ML 20 ML VIAL IV ONE (10:31)
[2021-11-05] MEDS ORDERED: PEG 3350 (420 GM/BTL) + LYTES 4,000 ML BOTTLE PO ONE (11:15)
[2021-11-05] MEDS ORDERED: SODIUM CHLORIDE 0.9% 2,000 ML IV ONE (11:47)
--- NOTE | 2021-11-05 11:50 | P.PCN ---
Date of Procedure: 11/05/21 Description of Procedure: PREOPERATIVE DIAGNOSIS: Sigmoid diverticulitis POSTOPERATIVE DIAGNOSIS: Tubular adenoma rectum Sigmoid diverticulosis Internal hemorrhoids, grade 2 OPERATION: Colonoscopy to the ileocecal valve and appendiceal orifice, cecum Colonoscopy with hot snare polypectomy SURGEON: Arianne Gustafson MD. ANESTHESIA: MAC. INDICATIONS: The patient is an 46-year-old male who presents with diverticulitis, recurrent. Benefits and risks were described and informed consent was obtained. DESCRIPTION OF PROCEDURE: The patient had undergone Sutab prep. The patient had been brought into the operating room and laid in the left lateral decubitus position. After adequate intravenous sedation, the rectum was examined with 2% lidocaine jelly. The prostate was unremarkable. External hemorrhoids were encountered. The rectal tone was within normal limits. No lesions were palpated in the rectal vault. An Olympus colonoscope was advanced until the cecum, ileocecal valve and appendiceal orifice were clearly viewed. The prep was excellent. Sigmoid diverticulosis with descending colon diverticulosis was encountered. Colonic polyps were found and removed. No evidence of focal colitis was found. Retroflexion of the scope demonstrated grade 2 internal hemorrhoids without active bleeding or inflammation. The colon was desufflated. The patient had tolerated the procedure well. Withdrawal time was over 6 minutes. FINDINGS: Aronchick preparation quality scale 1 (1-5) Internal hemorrhoids, grade 2 External hemorrhoids, grade 2. No arteriovenous malformations. Sigmoid diverticulosis with descending diverticulosis Removal of 1 polyps: - Snare polypectomy 15 cm from the anal verge, 5 mm tubulovillous adenoma polyp, rectum No focal colitis. RECOMMENDATIONS: Repeat colonoscopy in 5 years, 2026 Plan - Discharge Summary Discharge Rx Participant: No New Discharge Prescriptions: No Action No Known Home Medications Discharge Medication List No Known Home Medications 12/18/20 [History]
[2021-11-05] MEDS: NEOMYCIN 500 MG TAB PO SCH ×3 (13:00→22:51)
[2021-11-05] MEDS: metroNIDAZOLE 500 MG TAB PO SCH ×3 (13:00→22:51)
[2021-11-05] MEDS ORDERED: TEMAZEPAM 15 MG CAP PO ONE (21:00)
[2021-11-06] MEDS: 0.9% NACL WITH KCL 20 MEQ/L 1,000 ML IV SCH ×5 (02:49→18:27)
[2021-11-06] MEDS ORDERED: MELOXICAM 7.5 MG TAB PO PRN (07:00)
[2021-11-06] MEDS ORDERED: ALVIMOPAN 12 MG CAPSULE PO PRN ×2 (07:00)
[2021-11-06] MEDS ORDERED: ACETAMINOPHEN TAB 500 MG TAB PO PRN ×2 (07:00)
[2021-11-06] MEDS: LACTATED RINGERS 1,000 ML IV SCH ×2 (07:14→11:29)
[2021-11-06 08:42] LABS: Basophils % (A) 0 %; Eosinophils # (A) 0.1 k/uL (0-0.7); Eosinophils % (A) 1 %; HCT 48.6 % (39.0-53.0); HGB 17.1 gm/dL (13.0-17.5); Lymphocytes # (A) 2.1 k/uL (1.0-4.8); Lymphocytes % (A) 28 %; MCH 31.8 pg (25.0-35.0); MCHC 35.2 g/dL (31.0-37.0); MCV 90.5 fL (80.0-100.0); Mean Platelet Volume 7.4; Monocytes # (A) 0.3 k/uL (0-1.0); Monocytes % (A) 4 %; Neutrophils # (A) 4.7 k/uL (1.3-7.7); Neutrophils % (A) 65 %; Platelet Count 237 k/uL (150-450); RBC 5.37 m/uL (4.30-5.90); RDW 13.7 % (11.5-15.5); WBC 7.3 k/uL (3.8-10.6)
[2021-11-06 08:48] LABS: INR 1.2 (<1.2); Prothrombin Time 12.9 sec (9.0-12.0)
[2021-11-06 08:57] LABS: African American GFR (CKD) >90 (>60 ml/min/1.73 sqM); Anion Gap 6 mmol/L; Blood Urea Nitrogen 9 mg/dL (9-20); Calcium 9.3 mg/dL (8.4-10.2); Carbon Dioxide 25 mmol/L (22-30); Chloride 108 mmol/L (98-107); Glucose 101 mg/dL (74-99); Non-African American GFR(CKD) >90 (>60 ml/min/1.73 sqM); Potassium 4.3 mmol/L (3.5-5.1); Sodium 139 mmol/L (137-145)
[2021-11-06] MEDS ORDERED: HEPARIN SODIUM,PORCINE/PF 5,000 UNIT/0.5 ML SYRINGE SQ PRN (09:09)
[2021-11-06] MEDS ORDERED: ONDANSETRON 4 MG/2 ML VIAL ONE (11:21)
[2021-11-06] MEDS ORDERED: ALVIMOPAN 12 MG CAPSULE PO ONE (11:26)
[2021-11-06] MEDS ORDERED: GABAPENTIN 300 MG CAP PO ONE (11:26)
[2021-11-06] MEDS ORDERED: ONDANSETRON 4 MG/2 ML VIAL IVP ONE ×3 (11:26→17:12)
[2021-11-06] MEDS ORDERED: DEXAMETHASONE SOD PHOSPHATE 4 MG/ML 1 ML VIAL IVP ONE (11:28)
[2021-11-06] MEDS ORDERED: GABAPENTIN 300 MG CAP PO PRN (11:32)
[2021-11-06] MEDS ORDERED: TAMSULOSIN 0.4 MG CAP.ER.24H PO PRN (11:32)
[2021-11-06] MEDS ORDERED: MIDAZOLAM 2 MG/2 ML VIAL IVP ONE ×2 (12:06→12:08)
[2021-11-06] MEDS ORDERED: ROCURONIUM 10 MG/ML (5 ML VIAL) IV ONE (13:10)
[2021-11-06] MEDS ORDERED: ePHEDrine 50 MG/ML 1 ML VIAL ONE (13:10)
[2021-11-06] MEDS ORDERED: SUCCINYLCHOLINE CHLORIDE 100 MG/5 ML SYR IV ONE (13:10)
[2021-11-06] MEDS ORDERED: ROPIVACAINE 5 MG/ML 30 ML VIAL ONE (13:10)
[2021-11-06] MEDS ORDERED: GLYCOPYRROLATE 0.2 MG/ML 2 ML VIAL ONE (13:10)
[2021-11-06] MEDS ORDERED: LIDOCAINE 2% INJ 20 MG/ML (2 ML VIAL) ONE (13:10)
[2021-11-06] MEDS ORDERED: PROPOFOL 10 MG/ML 20 ML VIAL IV ONE (13:10)
[2021-11-06] MEDS ORDERED: HYDROmorphone (PF) 1 MG/ML ONE (13:10)
[2021-11-06] MEDS ORDERED: DEXAMETHASONE SOD PHOSPHATE 10 MG/ML 1 ML VIAL ONE (13:10)
[2021-11-06] MEDS ORDERED: MIDAZOLAM 2 MG/2 ML VIAL ONE (13:10)
[2021-11-06] MEDS ORDERED: NEOSTIGMINE 1 MG/ML 10 ML VIAL ONE (13:10)
[2021-11-06] MEDS ORDERED: fentaNYL (PF) 50 MCG/ML 2 ML AMP ONE (13:10)
[2021-11-06] MEDS ORDERED: LACTATED RINGERS 1,000 ML IV ONE ×2 (13:18→14:49)
[2021-11-06] MEDS ORDERED: BUPIVACAIN-EPI 0.25%-1:200,000 30 ML VIAL SQ ONE (14:00)
[2021-11-06] MEDS: metroNIDAZOLE-NS PMX 500 MG in SALINE 1 100ML.BAG IVPB PRN ×2 (14:00→14:07)
[2021-11-06] MEDS ORDERED: HYDROmorphone 0.5 MG/0.5 ML SYRINGE IVP ONE ×3 (15:15→17:21)
--- NOTE | 2021-11-06 15:22 | P.ANPRN ---
Procedure Note - Anesthesia - Nerve Block Performed Bilateral Erector Spinae Single Time Out Performed: Yes Date of Procedure: 11/06/21 Procedure Start Time: 12:05 Procedure Stop Time: 12:20 Location of Patient: PreOp Indication: Acute Post-Operative Pain, Requested by Surgeon Sedation Type: Sedate with meaningful contact maintained Preparation: Sterile Prep, Sterile Dressing Position: Prone Catheter: None Needle Types: Pajunk Needle Gauge: 20 Ultrasound used to visualize needle placement: Yes Ultrasound used to observe medication spread: Yes Injectate: Other (see comment) (0.25% ropivacaine + 5 mg decadron 30 ml per side) Blood Aspirated: No Pain Paresthesia on Injection Noted: No Resistance on Injection: Normal Image Stored and Saved: Yes Events: Uneventful and Well Tolerated
[2021-11-06] MEDS ORDERED: BENZOCAINE/MENTHOL LOZENG 1 EACH LOZENGE MUCOUS MEM PRN (16:58)
[2021-11-06] MEDS ORDERED: METOCLOPRAMIDE 5 MG/ML 2 ML VIAL IVP PRN (16:58)
--- NOTE | 2021-11-06 16:58 | P.OP ---
Date of Procedure: 11/06/21 Description of Procedure: SURGEON: JERMAIN ESPINOZA MD PREOPERATIVE DIAGNOSES: 1. Sigmoid diverticulitis 2. Morbid obesity due to excess calories, BMI 35.7 POSTOPERATIVE DIAGNOSES: 1. Sigmoid diverticulitis 2. Morbid obesity due to excess calories, BMI 35.7 OPERATION: 1. Robotic-assisted daVinci Xi sigmoid colectomy with low anterior resection using 29 mm Ethicon powered stapler 2. Intraoperative colonoscopy used for sigmoidoscopy Anesthesia: GETA, local, regional Estimated Blood Loss (ml): 20 Pathology: 1. Sigmoid colon 2. EEA donuts 3. Proximal colotomy Condition: stable Disposition: floor COMPLICATIONS: None. Operative Findings: 1. Redundant sigmoid colon 2. Anastomosis with EEA stapler 29 mm 3. No tension or torsion along the anastomosis 4. Doughnuts thick and both sides and viable 5. Moderately redundant sigmoid colon without tension at anastomosis 6. Negative leak test with viable anastomosis. INDICATIONS: The patient is a 46-year-old male who presents with recurrent diverticulitis. Benefits and risks of surgical intervention was described in detail including infection, injury to the ureter, colostomy creation, possibility for additional surgery was discussed at length. Informed consent was obtained. All questions of the patient and family were answered. DESCRIPTION: Earlier the patient had undergone a bowel prep using the enhanced colon recovery program. The patient was transferred to the operating room and placed supine. After general induction, the abdomen was prepped and draped in standard sterile fashion. Ioban was placed along the abdomen to minimize any contamination of skin floor. A Juarez catheter was placed. After a timeout protocol was performed, attention was then brought to the left upper quadrant whereby a 0 degree 5 mm laparoscopic trocar entry was performed. The abdominal cavity was entered and insufflated to 15 mmHg pressure, which was tolerated well. Diagnostic laparoscopy confirmed moderately redundant sigmoid colon. The small bowel was unremarkable. Next a robotic 12-mm trocar was placed along the right lateral abdominal wall 20 cm superior from the pelvis. Two 8 mm ports were placed along the upper abdomen. Ports were placed 10 cm apart from each other including 20 cm away from the target anatomy of the left pelvis. The 12-mm port was exchanged for an 8 mm robotic port at the left upper quadrant. The robot was docked along the left lateral abdomen. The patient was positioned in steep Trendelenburg position at 21-degrees. Using atraumatic graspers and vessel sealer, the robotic system was docked and primed as described. Instruments were interchanged by the assistant media planner including hook cautery, needle dump truck driver, robotic stapler and vessel sealer. The robot stapler was prepared along the right lateral abdominal wall. The stapler 12-mm port was arranged along the right lateral abdominal wall. Next, attention was brought to identify the sigmoid colon. A stay suture using 3- 0 silk was placed along the anterior serosa of the redundant sigmoid colon. The sigmoid mesentery was mobilized using a vessel sealer whereby the descending colon was marked and tagged. Using multiple fires of the robot stapler 60 mm black load, the proximal sigmoid colon was divided. The mesentery of the sigmoid colon was mobilized towards the pelvic brim and sacral promontory using a vessel sealer. The sigmoid volvulus was reduced with viable colon. Next, the sigmoid colon was divided using the robotic stapler 60 mm black staple loads. The rest of the sigmoid colon mesentery was mobilized using vessel sealer. Additionally, the sigmoid colon was mobilized onto the colon to minimize injury to the ureters. I went to the foot of the bed to confirm sizers and placement of 29-mm Ethicon powered stapler. I re-scrubbed into the case. The robotic arms were temporarily undocked. A 29-mm anvil was placed with a 3-0 silk sutured at the tip of the anvil renewable energy trader. Then the anvil was placed via the left upper quadrant 12 mm port. All robotic arms were re-docked. I went back to the console. The staple line was opened using cautery. The anvil was entered into the proximal descending colon. The colotomy was closed using 60 mm black load. Next, the sharp tip of the anvil renewable energy trader was brought through the staple line. The anvil renewable energy trader was removed from the abdomen using empty clip appliers. I went to the foot of the bed to place the powered Ethicon 29 mm stapler via the rectum. The anvil and stapler were mated for 1 minute. The doughnuts were intact on both sides and thick. An intraoperative leak test was performed as I inserted the colonoscope to the anastomosis. Endoscopic images were obtained. Irrigation was placed in the pelvis and no air leaks were identified. Irrigation fluid was aspirated from the pelvis until dry. I went back to the console. All sponges and needles were removed from the abdominal cavity. The robot was undocked. I re-scrubbed into the case. Via the left upper quadrant port, the sigmoid colon was removed using 15 mm Endo Catch bag. All sponges were removed from the abdominal cavity. The left upper quadrant incision was widened to 3-cm. No contamination had occurred throughout the case. The fascial defect was oversewn using 0 Vicryl and a Rad Oliveros. Next all pneumoperitoneum was evacuated from the abdominal cavity. The 8-mm trocar sites were reapproximated using 4-0 Monocryl in an interrupted subcuticular fashion. Local anesthetic was infiltrated to all wounds for postop analgesia. All incisions were also cleansed with diluted hydrogen peroxide. An [employer] advance surgical dressing was placed over the colon extraction site. Liquid glue was applied to the rest of the skin incisions. The patient had tolerated the procedure well. The patient was extubated successfully. The patient was transferred to the postanesthesia care unit in stable condition. Intraoperative findings were described in detail to the patient's family.
[2021-11-06] MEDS ORDERED: SODIUM CHLORIDE 0.9% 1,000 ML IV ONE ×2 (17:32→19:00)
[2021-11-06] MEDS: ONDANSETRON 4 MG/2 ML VIAL IVP SCH ×2 (18:05→23:53)
[2021-11-06] MEDS: SIMETHICONE 40 MG/0.6 ML DROPS 2,000 MG/30 ML BOTTLE PO SCH ×2 (18:05→19:52)
[2021-11-06] MEDS: HEPARIN SODIUM,PORCINE/PF 5,000 UNIT/0.5 ML SYRINGE SQ SCH (19:52)
[2021-11-06] MEDS: HYDROmorphone 1 MG/ML 1 ML SYRINGE IVP PRN (19:52)
[2021-11-06] MEDS ORDERED: TAMSULOSIN 0.4 MG CAP.ER.24H PO ONE (20:00)
[2021-11-06] MEDS ORDERED: NALOXONE 0.4 MG/ML 1 ML VIAL IV PRN (23:19)
[2021-11-06] MEDS ORDERED: ARTIFICIAL TEARS-HYPROMELLOSE DROPS 15 ML BTL BOTH EYES PRN (23:49)
[2021-11-06] MEDS: metroNIDAZOLE-NS PMX 500 MG in SALINE 1 100ML.BAG IVPB SCH (23:53)
[2021-11-07] MEDS: HYDROmorphone 1 MG/ML 1 ML SYRINGE IVP PRN (00:21)
[2021-11-07] MEDS: 0.9% NACL WITH KCL 20 MEQ/L 1,000 ML IV SCH ×3 (06:07→18:27)
[2021-11-07] MEDS: ONDANSETRON 4 MG/2 ML VIAL IVP SCH ×4 (06:07→23:38)
[2021-11-07 08:51] LABS: Basophils # (A) 0.01 X 10*3/uL (0.00-0.10); Basophils % (A) 0.1 %; Eosinophils # (A) 0 X 10*3/uL (0.04-0.35); Eosinophils % (A) 0 %; HCT 41.7 % (39.6-50.0); HGB 14.6 g/dL (13.0-17.0); Immature Grans, Automated 0.3 %; Lymphocytes # (A) 1.86 X 10*3/uL (0.90-5.00); Lymphocytes % (A) 14.9 %; MCH 30.4 pg (27.0-32.0); MCV 86.7 fL (80.0-97.0); Mean Platelet Volume 10.3 fL (9.5-12.2); Monocytes # (A) 0.84 X 10*3/uL (0.20-1.00); Monocytes % (A) 6.7 %; NRBC Per 100 WBC 0 /100 WBCS (0.0-0.0); Neutrophils # (A) 9.75 X 10*3/uL (1.80-7.70); Platelet Count 245 X 10*3/uL (140-440); RBC 4.81 X 10*6/uL (4.40-5.60); RDW 12.9 % (11.5-14.5)
[2021-11-07 09:08] LABS: BUN/Creat Ratio 7.89 Ratio (12.00-20.00)
[2021-11-07 09:09] LABS: African American GFR (CKD) 94.1 (60.0-200.0); Anion Gap 11.1 mmol/L (10.00-18.00); Blood Urea Nitrogen 8.7 mg/dL (9.0-27.0); Calcium 8.4 mg/dL (8.7-10.3); Carbon Dioxide 21.9 mmol/L (20.0-27.5); Non-African American GFR(CKD) 81.2 (60.0-200.0)
[2021-11-07] MEDS: LACTATED RINGERS 1,000 ML IV SCH (09:09)
[2021-11-07] MEDS: HYDROmorphone PCA 10 MG/50 ML BAG IV PRN ×2 (09:12→23:06)
[2021-11-07] MEDS: PANTOPRAZOLE 40 MG/10 ML VIAL IVP SCH (09:15)
[2021-11-07] MEDS: ALVIMOPAN 12 MG CAPSULE PO SCH ×2 (09:29→20:36)
[2021-11-07] MEDS: metroNIDAZOLE-NS PMX 500 MG in SALINE 1 100ML.BAG IVPB SCH ×2 (09:29→16:30)
[2021-11-07] MEDS: TAMSULOSIN 0.4 MG CAP.ER.24H PO SCH (09:29)
[2021-11-07] MEDS: HEPARIN SODIUM,PORCINE/PF 5,000 UNIT/0.5 ML SYRINGE SQ SCH ×2 (09:29→20:44)
[2021-11-07] MEDS: SIMETHICONE 40 MG/0.6 ML DROPS 2,000 MG/30 ML BOTTLE PO SCH ×4 (09:30→20:37)
--- NOTE | 2021-11-07 13:24 | P.PN ---
Subjective Progress Note Date: 11/07/21 Patient's mother and brother at bedside. He reports uncomfortable night due to difficulty in getting pain medication. Patient has a [employer] PSYCHOLOGIST now improved. He complains of eye irritation. He wears glasses. Patient reports prior irritation happened after surgery. Pain is improved From expected incisional pain, left upper quadrant. Recommend abdominal binder. Scheduled Toradol including IV Tylenol for pain. Diet advance to full liquid diet due to passage of flatus. Dietitian consult for low fiber diet and diverticulosis diet. CHIEF COMPLAINT: Diverticulitis HISTORY OF PRESENT ILLNESS: The patient is a 46-year-old male with diverticulitis. He is status post low anterior resection and sigmoid colectomy, 11/06/2021. Patient's mother and brother at bedside. He reports uncomfortable night due to difficulty in getting pain medications. Patient has a [employer] PSYCHOLOGIST now with pain improved. He complains of eye irritation. He wears glasses. Patient reports prior irritation happened after surgery. Overall pain is improved from expected incisional pain, left upper quadrant. ROS: No reports of nausea and vomiting. No bowel movements. No fevers or chills. No new chest pain. No productive sputum PHYSICAL EXAM: VITAL SIGNS: Reviewed CONSTITUTIONAL: Well developed and in no acute distress. EYES: Conjuctivae without sclera icterus. Extraocular movements grossly intact. HEAD, EARS, NOSE, THROAT: Moist buccal mucosa. Head is atraumatic, normocephalic. Hears conversational speech. No nasal drainage. RESPIRATORY: Non-labored respirations and equal bilateral excursions. CARDIOVASCULAR: Palpable 2+ radial pulses. ABDOMEN: MUSCULOSKELETAL: No gross deformity of the lower extremities noted. No clubbing. No cyanosis. SKIN: Good skin turgor. Well perfused. NEUROLOGIC: Cranial nerves II through XII grossly intact. No focal or lateralizing signs. PSYCH: Appropriate affect. Alert and oriented to person, place and time. CLINICAL LABS: Reviewed. WBC 7.3 to 12.5. Hgb down 17.1 to 14.6, dilutional. ASSESSMENT: 1. Sigmoid diverticulitis PLAN: 1. Recommend abdominal binder. 2. Scheduled Toradol including IV Tylenol for pain. 3. Diet advance to full liquid diet due to passage of flatus. 4. Dietitian consult for low fiber diet and diverticulosis diet. Objective - Vital Signs Vital signs: Vital Signs Temp 98.3 F 11/07/21 08:55 Pulse 73 11/07/21 08:55 Resp 17 11/07/21 08:55 BP 132/78 11/07/21 08:55 Pulse Ox 97 11/07/21 08:55 FiO2 Intake & Output 11/06/21 11/07/21 11/07/21 18:59 06:59 18:59 Intake Total 3200 Output Total 647 1500 Balance 2553 -1500 Intake: IV 3200 Output: Urine 625 1500 Stool 2 Estimated Blood Loss 20 Other: Voiding Method Indwelling Catheter Indwelling Catheter - Labs CBC & Chem 7: 11/07/21 06:15 11/07/21 06:15 Labs: Abnormal Lab Results - Last 24 Hours (Table) 11/07/21 11/07/21 Range/Units 06:15 06:15 WBC 12.50 H (4.50-10.00) X 10*3/uL Neutrophils # 9.75 H (1.80-7.70) X 10*3/uL Eosinophils # 0 L (0.04-0.35) X 10*3/uL BUN 8.7 L (9.0-27.0) mg/dL BUN/Creatinine Ratio 7.89 L (12.00-20.00) Ratio Glucose 132 H (70-110) mg/dL Calcium 8.4 L (8.7-10.3) mg/dL
[2021-11-07] MEDS: KETOROLAC 15 MG/ML 1 ML VIAL IVP SCH ×3 (14:05→23:38)
[2021-11-07 14:40] VITALS: BMI 35.6
[2021-11-07] MEDS: ACETAMINOPHEN IV (For NPO) 1,000 MG in EMPTY BAG 1 BAG IVPB SCH ×2 (15:27→20:34)
[2021-11-08] MEDS: 0.9% NACL WITH KCL 20 MEQ/L 1,000 ML IV SCH ×3 (02:29→18:36)
[2021-11-08] MEDS: ACETAMINOPHEN IV (For NPO) 1,000 MG in EMPTY BAG 1 BAG IVPB SCH ×2 (02:29→07:18)
[2021-11-08] MEDS: KETOROLAC 15 MG/ML 1 ML VIAL IVP SCH ×4 (05:30→23:19)
[2021-11-08] MEDS: ONDANSETRON 4 MG/2 ML VIAL IVP SCH ×5 (05:31→23:19)
[2021-11-08] MEDS: PANTOPRAZOLE 40 MG/10 ML VIAL IVP SCH (07:19)
[2021-11-08] MEDS: LACTATED RINGERS 1,000 ML IV SCH (07:24)
[2021-11-08] MEDS: SIMETHICONE 40 MG/0.6 ML DROPS 2,000 MG/30 ML BOTTLE PO SCH ×4 (07:25→20:27)
[2021-11-08] MEDS: ALVIMOPAN 12 MG CAPSULE PO SCH ×2 (07:33→20:15)
[2021-11-08] MEDS: TAMSULOSIN 0.4 MG CAP.ER.24H PO SCH (07:34)
[2021-11-08] MEDS: HEPARIN SODIUM,PORCINE/PF 5,000 UNIT/0.5 ML SYRINGE SQ SCH ×2 (07:34→20:19)
[2021-11-08 09:32] LABS: African American GFR (CKD) 105.6 (60.0-200.0); Anion Gap 8.9 mmol/L (10.00-18.00); BUN/Creat Ratio 6.4 Ratio (12.00-20.00); Blood Urea Nitrogen 6.4 mg/dL (9.0-27.0); Calcium 8.5 mg/dL (8.7-10.3); Carbon Dioxide 26.1 mmol/L (20.0-27.5); Non-African American GFR(CKD) 91.1 (60.0-200.0)
[2021-11-08 10:29] LABS: Basophils # (A) 0.04 X 10*3/uL (0.00-0.10); Basophils % (A) 0.5 %; Eosinophils # (A) 0.15 X 10*3/uL (0.04-0.35); Eosinophils % (A) 1.9 %; HCT 41.8 % (39.6-50.0); Immature Grans, Automated 0.1 %; Lymphocytes # (A) 2.71 X 10*3/uL (0.90-5.00); Lymphocytes % (A) 34.5 %; MCH 29.9 pg (27.0-32.0); MCHC 33.5 g/dL (32.0-37.0); MCV 89.3 fL (80.0-97.0); Mean Platelet Volume 10.4 fL (9.5-12.2); Monocytes # (A) 0.54 X 10*3/uL (0.20-1.00); Monocytes % (A) 6.9 %; NRBC Per 100 WBC 0 /100 WBCS (0.0-0.0); Neutrophils % (A) 56.1 %; Platelet Count 195 X 10*3/uL (140-440); RBC 4.68 X 10*6/uL (4.40-5.60); RDW 13.3 % (11.5-14.5); WBC 7.85 X 10*3/uL (4.50-10.00)
--- NOTE | 2021-11-08 11:09 | P.CONS ---
History of Present Illness - Reason for Consult Consult date: 11/08/21 - History of Present Illness History of Presenting Illness: Patient is a very pleasant 46-year-old male with a past medical history of childhood asthma, hypertension (not on medications reports controlled with weight loss), gout, diverticulosis, and kidney stones. Patient is currently hospitalized under general surgery team status post sigmoid colectomy with resection secondary to history of perforated diverticulitis. Surgical procedure completed on 11/06/[address] Gustafson. We have been consulted for medical management. Patient seen and fully evaluated at bedside this morning. He was noted to be hypertensive with blood pressure 150/96. Patient reports that he is currently experiencing postoperative pain 7 out of 10. This may possibly be reason for elevation, however with patient's history of hypertension and upon reviewing chart further it appears the patient has been running an average of 140s systolic throughout entire hospitalization. We will start patient on low- dose Norvasc and monitor for improvement. Patient reports that he is urinating without difficulties and has been tolerating oral intake without any episodes of nausea. Patient does report passing flatus but denies having any bowel movements. Again currently reporting diffuse generalized abdominal pain rating 7 out of 10 at this time and denies every further complaints including nausea and vomiting. Review of systems: Pertinent positives and negatives as discussed in HPI, a complete review of systems was performed and all other systems are negative. Physical exam: Vital signs reviewed and stable. General: Nontoxic, no distress and appears stated age. Derm: Skin warm and dry, normal coloration for ethnicity. Head: Atraumatic, normocephalic and symmetric. Eyes: EOMs intact, no lid lag, and anicteric sclera Mouth: no lip lesions, mucus membranes moist Cardiovascular: regular rate and rhythm with normal S1S2, no murmur, positive posterior tibial pulses bilaterally, and cap refill < 2 seconds. Lungs: Respirations even, regular, and unlabored on room air. Lungs CTA bilaterally, no rhonchi, no rales, no wheezing, and no accessory muscle usage. Abdominal: soft, nontender to palpation, no guarding, no appreciable organomegaly Ext: ROM intact. No gross muscle atrophy, no edema, no contractures Neuro: Speech clear, face symmetrical and CN II-XII grossly intact with no noted focal neuro deficits Psych: Alert and oriented to person, place, time, and situation. Appropriate and pleasant affect. Assessment and Plan of Care: Hypertension, uncontrolled -Monitor vital signs and start patient on Norvasc 2.5 mg daily. -Patient encouraged to obtain a blood pressure cough and monitor blood pressure daily upon discharge. History of perforated diverticulitis Status post sigmoid colectomy with resection -Management per primary admitting general surgery team. -Encourage abdominal binder whenever out of bed. -Full liquid diet and advanced as recommended by general surgery team. -Incentive spirometry, encourage use 10-15 times hourly while awake. -Symptomatic care and pain management -DVT prophylaxis with heparin Thank you for allowing us to participate in the care of this pleasant patient. Do not hesitate to contact us with questions. Someone can be reached from the [facility] hospitalist group all hours of the day at [phone] or via [employer]. Patient seen by nurse practitioner independently, I agree with assessment and plan as documented above Sam Charles MD [facility] Medicine Past Medical History Past Medical History: Asthma, Hypertension Additional Past Medical History / Comment(s): Diverticulitis, kidney stones, ureter blockage, hx lt shoulder injury, PAST HISTORY OF HYPERTENSION PRIOR TO WEIGHT LOSS, ASTHMA A CHILD, GOUT History of Any Multi-Drug Resistant Organisms: None Reported Past Surgical History: Appendectomy, Tonsillectomy Additional Past Surgical History / Comment(s): History of right nephrolithiasis with ureteral stricture status post multiple surgeries. Left thumb surgery, COLONOSCOPY, lithotripsies Past Anesthesia/Blood Transfusion Reactions: Motion Sickness Additional Past Anesthesia/Blood Transfusion Reaction / Comm: DIFFICULTY WAKING UP - CAUSES ANXIETY AND DEPRESSION Past Psychological History: Anxiety Smoking Status: Never smoker Past Alcohol Use History: None Reported Additional Past Alcohol Use History / Comment(s): QUIT SMOKING 2017 Past Drug Use History: None Reported Additional Drug Use History / Comment(s): PAST HISTORY OF MARIJUANA ONLY - Past Family History Father Family Medical History: CVA/TIA Additional Family Medical History / Comment(s): from CVA Mother Family Medical History: Diabetes Mellitus Brother(s) Family Medical History: AFIB, Diabetes Mellitus Medications and Allergies Home Medications Medication Instructions Recorded Confirmed Type Acetaminophen Tab [Tylenol Tab] 1,000 mg PO Q6HR PRN #30 tablet 11/08/21 Rx Ibuprofen [Motrin] 600 mg PO Q8HR PRN #30 tab 11/08/21 Rx Simethicone [Gas-X] 125 mg PO AC-TID PRN #20 capsule 11/08/21 Rx Allergies Allergy/AdvReac Type Severity Reaction Status Date / Time venom-honey bee Allergy Unknown Anaphylaxis Verified 11/05/21 09:35 [bee venom (honey bee)] sertraline HCl [From Zoloft] AdvReac Unknown "MAKES ME Verified 11/05/21 09:35 MEAN" PER PT Physical Exam Vitals: Vital Signs Temp Pulse Resp BP Pulse Ox 11/08/21 07:59 97.8 F 77 20 150/96 95 11/08/21 02:28 98.1 F 74 17 137/84 97 11/07/21 23:19 94 L 11/07/21 20:00 66 18 11/07/21 18:53 98.6 F 66 18 136/77 95 11/07/21 14:37 98.7 F 86 18 130/76 95 11/07/21 08:55 98.3 F 73 17 132/78 97 11/07/21 08:40 94 L Intake and Output 11/07/21 11/08/21 11/08/21 22:59 06:59 14:59 Output Total 550 1000 Balance -550 -1000 Output: Urine 550 1000 Other: Voiding Method Urinal Results CBC & Chem 7: 11/08/21 05:26 11/08/21 05:26 Labs: Abnormal Lab Results - Last 24 Hours (Table) 11/07/21 11/07/21 Range/Units 06:15 06:15 WBC 12.50 H (4.50-10.00) X 10*3/uL Neutrophils # 9.75 H (1.80-7.70) X 10*3/uL Eosinophils # 0 L (0.04-0.35) X 10*3/uL BUN 8.7 L (9.0-27.0) mg/dL BUN/Creatinine Ratio 7.89 L (12.00-20.00) Ratio Glucose 132 H (70-110) mg/dL Calcium 8.4 L (8.7-10.3) mg/dL
--- NOTE | 2021-11-08 12:41 | P.PN ---
Subjective Progress Note Date: 11/08/21 CHIEF COMPLAINT: Diverticulitis HISTORY OF PRESENT ILLNESS: The patient is a 46-year-old male with dive rticulitis. He is status post low anterior resection and sigmoid colectomy, 11/06/2021. Family is at bedside. He is clinically doing well. Denies any moderate eye irritation. Pain is well-controlled. He is passing moderate flatus. No bowel movement. Patient has pre-existing history of constipation. ROS: No reports of nausea and vomiting. No bowel movements. No fevers or chills. No new chest pain. No productive sputum PHYSICAL EXAM: VITAL SIGNS: Reviewed CONSTITUTIONAL: Well developed and in no acute distress. EYES: Conjuctivae without sclera icterus. Extraocular movements grossly intact. HEAD, EARS, NOSE, THROAT: Moist buccal mucosa. Head is atraumatic, normocephalic. Hears conversational speech. No nasal drainage. RESPIRATORY: Non-labored respirations and equal bilateral excursions. CARDIOVASCULAR: Palpable 2+ radial pulses. ABDOMEN: Incision intact. MUSCULOSKELETAL: No gross deformity of the lower extremities noted. No clubbing. No cyanosis. SKIN: Good skin turgor. Well perfused. NEUROLOGIC: Cranial nerves II through XII grossly intact. No focal or later alizing signs. PSYCH: Appropriate affect. Alert and oriented to person, place and time. CLINICAL LABS: Reviewed. WBC down from 12.5 to 7.85. Hgb 14.6 to 14.0, stable ASSESSMENT: 1. Sigmoid diverticulitis PLAN: 1. Continue Entereg. 2. Oral Tylenol scheduled started. 3. Increase diet to low fiber. 4. Anticipated disposition 24 hours. Objective - Vital Signs Vital signs: Vital Signs Temp 97.8 F 11/08/21 07:59 Pulse 77 11/08/21 07:59 Resp 20 11/08/21 07:59 BP 150/96 11/08/21 07:59 Pulse Ox 95 11/08/21 07:59 FiO2 Intake & Output 11/07/21 11/08/21 11/08/21 18:59 06:59 18:59 Output Total 2525 1000 Balance -2525 -1000 Weight 109.7 kg Output: Urine 2525 1000 Uretheral (Juarez) 175 Other: Voiding Method Indwelling Catheter Urinal - Labs CBC & Chem 7: 11/08/21 05:26 11/08/21 05:26 Labs: Abnormal Lab Results - Last 24 Hours (Table) 11/08/21 Range/Units 05:26 Anion Gap 8.90 L (10.00-18.00) mmol/L BUN 6.4 L (9.0-27.0) mg/dL BUN/Creatinine Ratio 6.40 L (12.00-20.00) Ratio Calcium 8.5 L (8.7-10.3) mg/dL
[2021-11-08] MEDS: HYDROmorphone PCA 10 MG/50 ML BAG IV PRN (14:14)
[2021-11-08] MEDS: ACETAMINOPHEN TAB 500 MG TAB PO SCH ×3 (14:50→23:19)
[2021-11-08] MEDS: amLODIPine 2.5 MG TAB PO SCH (17:32)
[2021-11-09] MEDS: HYDROmorphone PCA 10 MG/50 ML BAG IV PRN (02:31)
[2021-11-09] MEDS: ACETAMINOPHEN TAB 500 MG TAB PO SCH ×2 (06:04→12:03)
[2021-11-09] MEDS: ONDANSETRON 4 MG/2 ML VIAL IVP SCH ×2 (06:05→12:07)
[2021-11-09] MEDS: KETOROLAC 15 MG/ML 1 ML VIAL IVP SCH ×2 (06:05→12:07)
[2021-11-09] MEDS: ALVIMOPAN 12 MG CAPSULE PO SCH (07:21)
[2021-11-09] MEDS: HEPARIN SODIUM,PORCINE/PF 5,000 UNIT/0.5 ML SYRINGE SQ SCH (07:22)
[2021-11-09] MEDS: amLODIPine 2.5 MG TAB PO SCH (07:23)
[2021-11-09] MEDS: SIMETHICONE 40 MG/0.6 ML DROPS 2,000 MG/30 ML BOTTLE PO SCH ×2 (07:24→13:13)
[2021-11-09] MEDS: TAMSULOSIN 0.4 MG CAP.ER.24H PO SCH (07:24)
[2021-11-09] MEDS: PANTOPRAZOLE 40 MG/10 ML VIAL IVP SCH (08:15)
[2021-11-09 08:30] VITALS: PULSE 66; TEMP 98.5
[2021-11-09] MEDS ORDERED: amLODIPine 5 MG TAB PO SCH (09:15)
[2021-11-09 09:50] VITALS: RESP 20
[2021-11-09 10:56] VITALS: BP 137/81
--- NOTE | 2021-11-09 13:48 | P.DS ---
Providers Date of admission: 11/05/21 11:47 Expected date of discharge: 11/09/21 Attending physician: Arianne Gustafson Consults: 11/07/21 15:50 Consult Physician Routine Consulting Provider: Beni Pepper Consult Reason/Comments: Medical management Do you want consulting provider notified?: Yes Primary care physician: [facility] Hospital Course: Discharge diagnosis 1. Sigmoid diverticulitis 2. Morbid obesity due to excess calories, BMI 35.7 Hospital course This is a 46-year-old male who presents with recurrent diverticulitis. He is status post Robotic-assisted daVinci Xi sigmoid colectomy with low anterior resection. Patient tolerated surgery well. His pain is controlled. He is tolerating diet. He is up and ambulating. He is having bowel movements. He is afebrile. He is stable for discharge. Physician Die Barber note has been reviewed by physician. Signing provider agrees with the documented findings, assessment, and plan of care. CHIEF COMPLAINT: Diverticulitis HISTORY OF PRESENT ILLNESS: The patient is a 46-year-old male with diverticulitis. He is status post low anterior resection and sigmoid colectomy, 11/06/2021. Family is at bedside. He is having bowel movements without bleeding. He had mild hypertension. Patient declined antihypertensives for home. He does reports that his blood pressure at home routinely. ROS: No reports of nausea and vomiting. No bowel movements. No fevers or chills. No new chest pain. No productive sputum PHYSICAL EXAM: VITAL SIGNS: Reviewed CONSTITUTIONAL: Well developed and in no acute distress. EYES: Conjuctivae without sclera icterus. Extraocular movements grossly intact. HEAD, EARS, NOSE, THROAT: Moist buccal mucosa. Head is atraumatic, normocephalic. Hears conversational speech. No nasal drainage. RESPIRATORY: Non-labored respirations and equal bilateral excursions. CARDIOVASCULAR: Palpable 2+ radial pulses. ABDOMEN: No infection. Dressing intact minimal shadowing. MUSCULOSKELETAL: No gross deformity of the lower extremities noted. No clubbing. No cyanosis. SKIN: Good skin turgor. Well perfused. NEUROLOGIC: Cranial nerves II through XII grossly intact. No focal or lateralizing signs. PSYCH: Appropriate affect. Alert and oriented to person, place and time. ASSESSMENT: 1. Sigmoid diverticulitis PLAN: 1. Discharge instructions including discharge diet reviewed. 2. Weight lifting restrictions for pounds for 4 weeks until December 07 3. Stable for discharge Patient Condition at Discharge: Stable Plan - Discharge Summary Discharge Rx Participant: No New Discharge Prescriptions: New RX: Simethicone [Gas-X] 125 mg PO AC-TID PRN #20 capsule PRN Reason: Pain RX: Ibuprofen [Motrin] 600 mg PO Q8HR PRN #30 tab PRN Reason: Pain Acetaminophen Tab [Tylenol Tab] 1,000 mg PO Q6HR PRN #30 tablet PRN Reason: Pain Discharge Medication List Acetaminophen Tab [Tylenol Tab] 1,000 mg PO Q6HR PRN #30 tablet 11/08/21 [Rx] RX: Ibuprofen [Motrin] 600 mg PO Q8HR PRN #30 tab 11/08/21 [Rx] RX: Simethicone [Gas-X] 125 mg PO AC-TID PRN #20 capsule 11/08/21 [Rx] Follow up Appointment(s)/Referral(s): Arianne Gustafson MD [STAFF PHYSICIAN] - 12/07/21 8:00 am Patient Instructions/Handouts: *Surgery [facility] - (Anesthesia) Endoscopy Discharge Instructions, Colectomy (DC) Activity/Diet/Wound Care/Special Instructions: Wear abdominal binder at all times for comfort. No lifting over 4 pounds in 4 weeks You May shower. No bath tub soaks for two weeks Use Tylenol and ibuprofen scheduled for the next 24-48 hours for best pain relief. Use ice along incisions for the today to prevent swelling. Continue a low fiber diet Recommend potassium rich foods such as bananas and cantaloupe. Avoid seeds from the cantaloupe. Continue protein shakes Remove abdominal dressing on Tuesday Strongly recommend taking blood pressure twice daily and documenting in a daily log/sternal to bring with you to your next doctor's appointment. As it was discussed, it is recommended for you to be placed on oral antihypertensive medication secondary to persistent elevation in blood pressure greater than 130s systolic. I understand that you are declining taking antihypertensive medication at this time and you have been educated on the risks associated with untreated hypertension. Please continue to monitor blood pressures daily and follow up with your PCP. Discharge Disposition: HOME SELF-CARE
--- NOTE | 2021-11-09 15:25 | P.PN ---
Subjective Progress Note Date: 11/09/21 Hospital course: Patient is a very pleasant 46-year-old male with a past medical history of childhood asthma, hypertension (not on medications reports controlled with weight loss), gout, diverticulosis, and kidney stones. Patient is currently hospitalized under general surgery team status post sigmoid colectomy with resection secondary to history of perforated diverticulitis. Surgical procedure completed on 11/06/[address] Gustafson. We have been consulted for medical management. Physical exam: Patient is day postop. He was seen and fully evaluated at bedside this morning. He reports his pain is controlled and has not had to use his [employer] at all throughout the night. Morning blood pressure 165/104. Again had a long talk with patient regarding recommendations for taking antihypertensive medications and risks with continuing with uncontrolled/unmanaged hypertension. Patient refusing prescription for blood pressure medications at this time. Reports he was previously on lisinopril and stopped taking because he did not like, patient was started on Norvasc and explained this is a different class of medications and he continued to refuse. Patient strongly encouraged to take blood pressure at home twice daily and documenting in a daily log/journal to bring with him to his next doctor's appointment as he truly may need to be placed on medications in the near future. Patient reports he is "too young" to take medications on a daily basis and will just start going back to the gym like he did before to control his blood pressure. With the exception of hypertension, patient otherwise medically stable for discharge at this time once cleared by primary admitting general surgery team. Vital signs reviewed and stable. General: Nontoxic, no distress and appears stated age. Derm: Skin warm and dry, normal coloration for ethnicity. Head: Atraumatic, normocephalic and symmetric. Eyes: EOMs intact, no lid lag, and anicteric sclera Mouth: no lip lesions, mucus membranes moist Cardiovascular: regular rate and rhythm with normal S1S2, no murmur, positive posterior tibial pulses bilaterally, and cap refill < 2 seconds. Lungs: Respirations even, regular, and unlabored on room air. Lungs CTA bilaterally, no rhonchi, no rales, no wheezing, and no accessory muscle usage. Abdominal: soft, nontender to palpation, no guarding, no appreciable organomegaly Ext: ROM intact. No gross muscle atrophy, no edema, no contractures Neuro: Speech clear, face symmetrical and CN II-XII grossly intact with no noted focal neuro deficits Psych: Alert and oriented to person, place, time, and situation. Appropriate and pleasant affect. Assessment and Plan of Care: Hypertension, uncontrolled -Monitor vital signs. patient started on Norvasc 2.5 mg daily but refusing to take oral antihypertensive medications. -Patient encouraged to obtain a blood pressure cough and monitor blood pressure daily upon discharge. History of perforated diverticulitis Status post sigmoid colectomy with resection postop day 3 -Management per primary admitting general surgery team. -Encourage abdominal binder whenever out of bed. -Full liquid diet and advanced as recommended by general surgery team. -Incentive spirometry, encourage use 10-15 times hourly while awake. -Symptomatic care and pain management -DVT prophylaxis with heparin Thank you for allowing us to participate in the care of this pleasant patient. Do not hesitate to contact us with questions. Someone can be reached from the [facility] hospitalist group all hours of the day at [phone] or via [employer]. Objective - Vital Signs Vital signs: Vital Signs Temp 98.5 F 11/09/21 08:28 Pulse 66 11/09/21 08:28 Resp 18 11/09/21 08:28 BP 165/104 11/09/21 08:28 Pulse Ox 96 11/09/21 08:28 FiO2 Intake & Output 11/08/21 11/09/21 11/09/21 18:59 06:59 18:59 Other: Voiding Method Toilet Urinal - Labs CBC & Chem 7: 11/08/21 05:26 11/08/21 05:26 Labs: Abnormal Lab Results - Last 24 Hours (Table) 11/08/21 Range/Units 05:26 Anion Gap 8.90 L (10.00-18.00) mmol/L BUN 6.4 L (9.0-27.0) mg/dL BUN/Creatinine Ratio 6.40 L (12.00-20.00) Ratio Calcium 8.5 L (8.7-10.3) mg/dL
== END 2021-11-09 14:34 | disposition home or self-care (01) | DRG 329 ==
LOC: ORWHC2ENDO 09:20 → 4SSUR 10:55 → ORWHC2ENDO 11:47
PROVIDERS: ADMIT Surgery Plastic and Reconstructive Surgery; ATTEND Surgery Plastic and Reconstructive Surgery
PROC: 0DBP8ZX Excision of Rectum, Via Natural or Artificial Opening Endoscopic, Diagnostic (ICD-10-PCS; 2021-11-05)
PROC: 0DTN4ZZ Resection of Sigmoid Colon, Percutaneous Endoscopic Approach (ICD-10-PCS; principal; 2021-11-06 11:25)
PROC: 0DJD8ZZ Inspection of Lower Intestinal Tract, Via Natural or Artificial Opening Endoscopic (ICD-10-PCS; principal; 2021-11-06 11:25)
PROC: 8E0W4CZ Robotic Assisted Procedure of Trunk Region, Percutaneous Endoscopic Approach (ICD-10-PCS; principal; 2021-11-06 11:25)
DX: K57.32 Diverticulitis of large intestine without perforation or abscess without bleeding (principal); K56.2 Volvulus; D12.7 Benign neoplasm of rectosigmoid junction; E66.01 Morbid (severe) obesity due to excess calories; I10 Essential (primary) hypertension; J45.909 Unspecified asthma, uncomplicated; K64.4 Residual hemorrhoidal skin tags; K64.8 Other hemorrhoids; Z68.36 Body mass index [BMI] 36.0-36.9, adult; Z82.3 Family history of stroke; Z83.3 Family history of diabetes mellitus; Z87.442 Personal history of urinary calculi; Z28.310 Unvaccinated for COVID-19; Z28.21 Immunization not carried out because of patient refusal; M10.9 Gout, unspecified
CPT/HCPCS: 45385; 64999; 80048; 80053; 85025; 85610; 88305; 88307; 94760